=== PATIENT | female | born 1930 | race Caucasian/White ===

== ENCOUNTER 2017-09-12 08:54 | Outpatient (CLI) | payer MEDICARE ==
--- NOTE | 2017-09-12 10:13 | XRAY Report ---
TWO VIEW CHEST: 09/12/2017. COMPARISON: No comparison. INDICATION: Cough and wheeze. TECHNIQUE: Frontal and lateral chest views. FINDINGS: There is no focal consolidation. No pneumothorax or pleural effusion. The mediastinum appears unremarkable. There is eventration of the right diaphragm. IMPRESSION: NO EVIDENCE OF ACUTE THORACIC PROCESS. TD: 09/12/2017 10:12 [facility]
--- NOTE | 2017-09-12 10:14 | XRAY Report ---
LEFT SHOULDER: 09/12/2017 COMPARISON: No comparison. INDICATION: Left shoulder pain. TECHNIQUE: Three views. FINDINGS: Normal alignment. No evidence of acute fracture. There are mild degenerative changes of the acromioclavicular joint. IMPRESSION: MILD AC JOINT ARTHROSIS. TD: 09/12/2017 10:13 [facility]
== END 2017-09-12 08:55 | disposition home or self-care (01) ==
LOC: DI.S 08:54
PROVIDERS: ATTEND Nurse Practitioner Family
DX: J06.9 Acute upper respiratory infection, unspecified (principal); R05 Cough; R06.2 Wheezing; M25.512 Pain in left shoulder
CPT/HCPCS: 71046

== ENCOUNTER 2017-10-10 13:46 | Outpatient (CLI) | payer MEDICARE, OTHER ==
--- NOTE | 2017-10-10 16:35 | MRI Report ---
EXAM: LEFT SHOULDER MRI WITHOUT CONTRAST EXAM DATE: 10/10/2017 02:00 PM. CLINICAL HISTORY: Pain in left shoulder, rotator cuff syndrome. COMPARISON: Plain x-ray of the shoulder from 09/12/2017. TECHNIQUE: Multiplanar, multisequence T1-weighted and fluid-sensitive sequences of the shoulder witho ut contrast. Other: None. FINDINGS: Acromioclavicular Region: The acromion is type II. Acromioclavicular joint is moderately osteoarthrit ic. The coracoacromial and coracoclavicular ligaments are intact. Trace amount of bursal fluid. Glenohumeral Region: No subluxation. No effusion or loose bodies. There is some global overall thinni ng of the articular surface of the glenoid. The glenohumeral ligaments and joint capsule are unremark able. Bone Marrow: No fracture, marrow edema or bone lesions. Labrum: Very prominent sublabral hole. No convincing evidence for a tear. Series 401 image 20. Mild h ypoplastic change of the anterior bony glenoid. Musculature/Rotator Cuff: Undersurface partial-thickness tear at the distal supraspinatus involves ab out 50% of the tendon thickness. Series 701 image 5, series 501 image 8. Some thickening of the subsc apularis and infraspinatus tendons and muscles also noted. Teres minor attachment is normal. No proxi mal muscle bundle edema or fatty atrophy. Biceps Tendon: Long head of biceps tendon is swollen and shows some increased T2 signal within it. No vertical split or focal full-thickness tears. Other: The subcutaneous tissues are unremarkable. IMPRESSION: 1. Type II unipartite undersurface osseous acromion shape. AC joint is moderately osteoarthritic. Tra ce amount of bursal fluid is present. Some global thinning of the articular surface of the glenoid is present. Prominent sublabral hole, mild hypoplastic change of the anterior bony glenoid, no convinci ng evidence for a labral tear. 2. Partial-thickness undersurface distal supraspinatus tear involves about 50% of the tendon thicknes s. Tendinitis seen in the remaining supraspinatus and infraspinatus tendons. Tendinopathy in the subs capularis. Teres minor is normal. 3. Long head of biceps tendon shows moderately severe tendinitis. [facility] MUSCULOSKELET[facility]IOLOG[facility] SECTION Referring Provider Line: [phone] SITE ID: [id number]
== END 2017-10-10 13:47 | disposition home or self-care (01) ==
LOC: DI 13:46
PROVIDERS: ATTEND Internal Medicine
DX: M19.012 Primary osteoarthritis, left shoulder (principal); M75.112 Incomplete rotator cuff tear or rupture of left shoulder, not specified as traumatic; M75.92 Shoulder lesion, unspecified, left shoulder; M75.22 Bicipital tendinitis, left shoulder

== ENCOUNTER 2018-04-25 13:04 | Outpatient (CLI) | payer MEDICARE, OTHER ==
--- NOTE | 2018-04-25 15:40 | Ultrasound Report ---
Reason: CERVICAL LYMPHADENOPATHY Procedure Date: 04/25/2018 Accession Number: [id number] / [id number] Procedure: US - Head or Neck Soft Tissue CPT Code: FULL RESULT: EXAM: THYROID ULTRASOUND. EXAM DATE: 04/25/2018 02:35 PM. CLINICAL HISTORY: Possible cervical lymphadenopathy. PCP palpated lump right posterior neck. COMPARISON: None. TECHNIQUE: Real time sonographic imaging of the palpable finding right neck as directed by the patient. Imaging was performed by both the technologist and the radiologist. Multiple sales representative church furniture static images were saved for review. FINDINGS: No adenopathy appreciated. Per patient direction, palpable finding is in the right posterior neck in the expected position of the spinal accessory chain. A small superficial palpable finding is reproduced at physical exam and corresponds to a nonspecific 4 mm ovoid finding likely indicating a lymph node. Spinous processes of the cervical vertebrae are also prominent and easily palpable in this location. IMPRESSION: No specific finding of concern at ultrasound. Small superficial mobile palpable finding reproduced on physical exam most likely a small lymph node. Easily palpable transverse processes of the cervical spine also present in this location. If these ultrasound findings are discordant with clinical suspicion and/or PCP physical exam, more definitive imaging could be performed with CT. [facility]
== END 2018-04-25 13:05 | disposition home or self-care (01) ==
LOC: DI 13:04
PROVIDERS: ATTEND Internal Medicine
DX: R59.0 Localized enlarged lymph nodes (principal)
CPT/HCPCS: 76536

== ENCOUNTER 2018-12-12 09:38 | Observation (INO) | payer MEDICARE, OTHER ==
--- NOTE | 2018-12-12 09:53 | ED Physician Documentation ---
History of Present Illness - Stated complaint Stated Complaint: PASSED OUT, V/D - Chief complaint Chief Complaint: Neuro - History obtained from History obtained from: Patient - History of Present Illness Timing: Prior to arrival - Additonal information Additional information: Patient is an 88-year-old female with history of Sjogren's, GERD, urinary self-catheterization (chronic antibiotics), anemia presenting with witnessed syncopal episode just prior to arrival. Patient reports that she got up and was walking towards the bathroom and had witnessed syncopal episode during which she did not fall, strike her head, or injure herself. Patient believes she was unconscious for only a few seconds. Patient has chronic headache pain that is unchanged from baseline. Patient denies new headache, vision changes, or other prodromal symptoms. Following the syncopal episode, patient had episode of vomiting and diarrhea. Patient describes vomit as possibly darker in color, but denies known bloodiness, as well as any hemoptysis or hematochezia. Patient denies any current nausea, vomiting, diarrhea, abdominal pain, chest pain, difficulty breathing, cough, fever, or urinary changes. No anticoagulation. No other improving or worsening factors noted. Review of Systems Constitutional: denies: Fever Eyes: denies: Loss of vision Cardiac: denies: Chest pain / pressure Respiratory: denies: Dyspnea, Cough GI: reports: Nausea, Vomiting, Diarrhea. denies: Abdominal Pain : denies: Dysuria Neurologic: reports: Syncope, Headache, LOC. denies: Head injury PD PAST MEDICAL HISTORY - Past Medical History Neuro: Headaches, Migraines GI: GERD Other Past Medical History: Sjogrens - Past Surgical History Past Surgical History: Yes General: Other - Allergies Allergies/Adverse Reactions: Allergies Allergy/AdvReac Type Severity Reaction Status Date / Time Penicillins Allergy Rash Verified 12/12/18 09:51 PD ED PE NORMAL - Vitals Vital signs reviewed: Yes - General General: Alert and oriented X 3, No acute distress, Well developed/nourished - HEENT HEENT: Atraumatic, PERRL, EOMI, Moist mucous membranes, Pharynx benign - Neck Neck: Supple, no meningeal sign - Cardiac Cardiac: RRR, No murmur - Respiratory Respiratory: No respiratory distress, Clear bilaterally - Abdomen Abdomen: Soft, Non tender, Non distended - Rectal Rectal: Other (rectal prolapse (chronic), hemmocult positive) - Derm Derm: Normal color, Warm and dry, No rash - Extremities Extremities: No deformity, No tenderness to palpate, No edema - Neuro Neuro: Alert and oriented X 3, No motor deficit, No sensory deficit - Psych Psych: Normal mood, Normal affect Results - Vitals Vitals: Vital Signs - 24 hr 12/12/18 09:48 Temperature 36.6 C Heart Rate 91 Respiratory 16 Rate Blood Pressure 143/71 H O2 Saturation 100 Oxygen O2 Source Room air - EKG (time done) 0943 Rate: Rate (enter#) (91) Rhythm: NSR Intervals: Prolonged QT, LBBB Compare to prior EKG: Unchanged from prior EKG - Labs Labs: Laboratory Tests 12/12/18 12/12/18 12/12/18 09:30 09:44 10:34 WBC RBC Hgb Hct MCV MCH MCHC RDW Plt Count MPV Neut # (Auto) Lymph # (Auto) [place] # (Auto) Eos # (Auto) Baso # (Auto) Absolute Nucleated RBC Nucleated RBC % Manual Slide Review Platelet Estimate Platelet Morphology RBC Morph Micro Appear PT INR APTT Sodium Potassium Chloride Carbon Dioxide Anion Gap BUN Creatinine Estimated GFR (MDRD) Glucose POC Whole Bld Glucose 96 Calcium Total Bilirubin AST ALT Alkaline Phosphatase Troponin I High Sens Total Protein Albumin Globulin Albumin/Globulin Ratio Lipase TSH Blood Type O POSITIVE Blood Type Recheck O POSITIVE Antibody Screen NEGATIVE Crossmatch IS Only See Detail 12/12/18 12/12/18 12/12/18 Unknown Unknown Unknown WBC 10.1 RBC 2.76 L Hgb 5.8 L* Hct 20.9 L MCV 75.7 L MCH 21.0 L MCHC 27.8 L RDW 19.0 H Plt Count 308 MPV 9.0 Neut # (Auto) 7.6 H Lymph # (Auto) 1.9 [place] # (Auto) 0.5 Eos # (Auto) 0.0 Baso # (Auto) 0.0 Absolute Nucleated RBC 0.00 Nucleated RBC % 0.0 Manual Slide Review Indicated Platelet Estimate NORMAL (130-450,000) Platelet Morphology NORMAL APPEARANCE RBC Morph Micro Appear 2+ ANISOCYTOSIS PT INR APTT Sodium 138 Potassium 4.4 Chloride 102 Carbon Dioxide 22 Anion Gap 14.0 H BUN 35 H Creatinine 0.7 Estimated GFR (MDRD) 79 L Glucose 128 H POC Whole Bld Glucose Calcium 9.1 Total Bilirubin 0.6 AST 17 ALT 16 Alkaline Phosphatase 89 Troponin I High Sens Total Protein 6.9 Albumin 4.0 Globulin 2.9 Albumin/Globulin Ratio 1.4 Lipase 37 TSH 8.16 H Blood Type Blood Type Recheck Antibody Screen Crossmatch IS Only 12/12/18 12/12/18 Unknown Unknown WBC RBC Hgb Hct MCV MCH MCHC RDW Plt Count MPV Neut # (Auto) Lymph # (Auto) [place] # (Auto) Eos # (Auto) Baso # (Auto) Absolute Nucleated RBC Nucleated RBC % Manual Slide Review Platelet Estimate Platelet Morphology RBC Morph Micro Appear PT 13.0 H INR 1.2 APTT 26.8 Sodium Potassium Chloride Carbon Dioxide Anion Gap BUN Creatinine Estimated GFR (MDRD) Glucose POC Whole Bld Glucose Calcium Total Bilirubin AST ALT Alkaline Phosphatase Troponin I High Sens 5.1 Total Protein Albumin Globulin Albumin/Globulin Ratio Lipase TSH Blood Type Blood Type Recheck Antibody Screen Crossmatch IS Only PD MEDICAL DECISION MAKING - ED course Complexity details: reviewed results, re-evaluated patient, considered differential, d/w patient, d/w family, d/w risk consultant ED course: Patient presenting with syncopal episode that lasted several seconds and was followed by vomiting and diarrhea. Patient has multiple chronic medical problems including known anemia, however, has never required blood transfusion. Physical exam is relatively unremarkable upon arrival and patient comfortable without significant complaints. EKG obtained which did not find evidence of ischemia. Screening lab work returned concerning for significant anemia with hemoglobin of 5.9. Given that finding, performed rectal exam which revealed Hemoccult positive stool. At this time, discussed blood transfusion with patient and she is agreeable. Also discussed admission for further work-up and treatment and set up for likely outpatient endoscopy and colonoscopy. Patient is amenable to this plan as well. Hospitalist contacted and will arrange for such. Departure - Departure Disposition: ED Place in Observation Clinical Impression: Syncope Qualifiers: Syncope type: unspecified Qualified Code(s): R55 - Syncope and collapse Anemia Qualifiers: Anemia type: unspecified type Qualified Code(s): D64.9 - Anemia, unspecified
[2018-12-12] MEDS ORDERED: SODIUM CHLORIDE 0.9% 1,000 ML IV ONE (10:02)
[2018-12-12 10:14] LABS: BASOPHILS % (AUTO) 0.3 %; EOSINOPHILS % (AUTO) 0.1 %; LYMPHOCYTES # (AUTO) 1.9 10^3/uL (1.5-3.5); LYMPHOCYTES % (AUTO) 18.4 %; MEAN CORPUSCULAR HGB CONC 27.8 g/dL (32.0-36.0); MEAN CORPUSCULAR VOLUME 75.7 fL (81.0-99.0); MONOCYTES # (AUTO) 0.5 10^3/uL (0.0-1.0); MONOCYTES % (AUTO) 5.2 %; NEUTROPHILS # (AUTO) 7.6 10^3/uL (1.5-6.6); NEUTROPHILS % (AUTO) 75.6 %; PLT - PLATELET COUNT 308 10^3/uL (130-450); RED BLOOD COUNT 2.76 10^6/uL (4.20-5.40); WHITE BLOOD COUNT 10.1 x10^3/uL (4.8-10.8)
[2018-12-12 10:21] LABS: HGB - HEMOGLOBIN 5.8 g/dL (12.0-16.0)
[2018-12-12 10:26] LABS: ALBUMIN/GLOBULIN RATIO 1.4 (1.0-2.2); BILIRUBIN,TOTAL 0.6 mg/dL (0.2-1.0); CALCIUM 9.1 mg/dL (8.5-10.3); CREATININE 0.7 mg/dL (0.4-1.0); TOTAL PROTEIN 6.9 g/dL (6.7-8.2)
--- NOTE | 2018-12-12 10:31 | CT Report ---
Reason: syncope with LOC Procedure Date: 12/12/2018 Accession Number: [id number] / [id number] Procedure: CT - HEAD WO CPT Code: FULL RESULT: EXAM: CT HEAD EXAM DATE: 12/12/2018 10:18 AM. CLINICAL HISTORY: Syncope with LOC. COMPARISON: None. TECHNIQUE: Multiaxial CT images were obtained from the foramen magnum to the vertex. Reformats: Sagittal and coronal. IV contrast: None. In accordance with CT protocol optimization, one or more of the following dose reduction techniques were utilized for this exam: automated exposure control, adjustment of mA and/or KV based on patient size, or use of iterative reconstructive technique. FINDINGS: Parenchyma: No intraparenchymal hemorrhage. No evidence of mass, midline shift, or CT findings of infarction. Hung-white differentiation is distinct. Extraaxial Spaces: Normal for age. No subdural or epidural collections identified. Ventricles: Normal in size and position. Sinuses and Orbits: Imaged paranasal sinuses, orbits, and mastoids show no significant abnormality. Bones: No evidence of fracture or calvarial defect. Other: None. IMPRESSION: 1. No acute intracranial process is present. [facility]
[2018-12-12 10:37] LABS: INR 1.2 (0.8-1.2)
[2018-12-12 10:39] LABS: PLATELET ESTIMATE, MANUAL NORMAL (130-450,000) (NORMAL); PLATELET MORPHOLOGY NORMAL APPEARANCE (NORMAL)
[2018-12-12 10:45] LABS: PARTIAL THROMBOPLASTIN TIME 26.8 secs (24.9-33.3)
[2018-12-12 12:08] LABS: BILIRUBIN,URINE NEGATIVE (NEGATIVE); GLUCOSE, URINE (UA) NEGATIVE (NEGATIVE); KETONES,URINE (UA) NEGATIVE (NEGATIVE); LEUKOCYTE ESTERASE, URINE NEGATIVE (NEGATIVE); NITRITE,URINE POSITIVE (NEGATIVE); OCCULT BLOOD,URINE NEGATIVE (NEGATIVE); PH,URINE 5.5 PH (5.0-7.5); PROTEIN,URINE NEGATIVE (NEGATIVE); UROBILINOGEN,URINE 0.2 (NORMAL) E.U./dL (NORMAL)
[2018-12-12] MEDS ORDERED: oxyCODONE 5 MG TABLET PO PRN (12:08)
[2018-12-12] MEDS ORDERED: PROCHLORPERAZINE 10 MG/2 ML VIAL IVP PRN (12:08)
[2018-12-12] MEDS ORDERED: ONDANSETRON 4 MG/2 ML VIAL IVP PRN (12:08)
[2018-12-12] MEDS ORDERED: ACETAMINOPHEN 325 MG TABLET PO PRN (12:08)
[2018-12-12] MEDS ORDERED: ONDANSETRON ODT 4 MG TABLET TL PRN (12:08)
[2018-12-12] MEDS ORDERED: SODIUM CHLORIDE FLUSH 0.9% 10 ML SYRINGE IVP PRN (12:08)
[2018-12-12 12:09] LABS: CLARITY,URINE CLEAR (CLEAR)
[2018-12-12 12:20] LABS: BACTERIA,URINE Moderate /HPF (None Seen); RBC,URINE None Seen /HPF (0-5); SQUAMOUS EPITHELIAL CELL,UR FEW Squamous (<= Few)
[2018-12-12] MEDS: PANTOPRAZOLE 40 MG TABLET PO SCH (14:53)
[2018-12-12] MEDS: BUTALB/ACETAM/CAFF 50/325/40MG TABLET PO PRN (14:53)
--- NOTE | 2018-12-12 17:22 | HISTORY & PHYSICAL EXAMINATION ---
DATE OF SERVICE: 12/12/2018 Physician: Elizabeth Beauchamp MD PRIMARY CARE PROVIDER: Marycruz Worthington MD ADMITTING PROVIDER: Elizabeth Beauchamp MD CHIEF COMPLAINT: Syncope. RECORDS REVIEWED: [facility] HISTORY OF PRESENT ILLNESS: This is an absolutely sushant 88-year-old female who still lives alone. Needs a little bit of help from her kids with regard to heavy lifting, deep cleaning, but she still wanders into her yard, weeds a little bit, comes back inside and does that several times a day. Still able to dress herself, feed herself. She has a terrible problem with prolapsed bladder and rectum and urinary retention. She has had an intrastimulator placed and it failed and it was explanted 2016. Then she had a sling revision with urethrolysis 05/2017. She thinks that for the most part that is what she suffers from. Everything else is "small potatoes" but she does mention that she has had anemia for several years now. She associates that with her Sjogren's disease. She always has a little bit of dysphagia, dry mouth. She did have an EGD and colonoscopy in 2017 through [facility]. Not done at the same time, but both have been done. Those results are not available, but she remembers being told that "everything was normal." She has had no recent change in bowel or bladder habits. She has urinary retention and gets frequent UTIs. She is on chronic maintenance Bactrim therapy because of it. She does have a history of ESBL UTI. While she is always tired, always has some element of shortness of breath with exertion, she seems to be much worse than usual over the last several weeks. She is absolutely exhausted on top of her usual fatigue, but she denies angina with this, edema, orthopnea, chest pain, palpitations. There has been no abdominal pain. No change in her bowel habits. No blood in her urine. No blood in her stool. This morning, she got up formula maker hours to go to the bathroom. She says she just finds it easier to urinate at night than she does during the day for some reason, and got up to get herself a glass of orange juice in the kitchen. While she was standing there, she passed out. She vaguely recalls not feeling well before it happened, but really cannot give me any more history than that. She was brought to the emergency room and had a temperature that was 36.6. A pulse of 91 and a blood pressure 143/71. She was oxygenating well on room air at 97-100%. She is a very, very slender elderly woman whose weight is 47.5 kg and is 5 feet 8 inches tall. Pertinent findings were TSH of 8.16, but her hemoglobin is 5.8. Back in 08/2015, her hemoglobin was 8.9. MCV then was 78. MCV today is 75. She said she really does not remember being told she had iron deficiency anemia. In looking at our EMR, there are no iron studies done, but she thinks it may have been checked in her doctor's office. As such, the patient is now being admitted to observation for syncope, most likely orthostatic syncope in the face of severe microcytic anemia. PAST MEDICAL HISTORY 1. G3, P3. 2. 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 Status post intrastimulator of bladder placed and then explanted 05/2016 because it failed. TVTO sling revision and urethrolysis done 05/2017. 3. HPL. 4. Migraines of which she has one right now. 5. Osteoarthritis. 6. Cholelithiasis with cholecystectomy in 1967. 7. Appendectomy in 1993. 8. Cataract extractions. 9. Hernia repair in 2003. ALLERGIES: PENICILLIN. MEDICATIONS 1. Calcium carbonate daily. 2. Vitamin B12 sublingual 1000 mcg daily. 3. Flaxseed oil 1000 mg daily. 4. Prozac 20 mg daily. 5. Lactobacillus capsule daily. 6. Prevacid 15 mg p.o. b.i.d. 7. Lovastatin 40 mg p.o. q.p.m. 8. Theragran 1 tablet daily. 9. Zantac 150 mg p.o. b.i.d. and Bactrim double strength 1 p.o. daily. SOCIAL HISTORY: She was born in [place]. Fell in love with an Army man who was in the Army band and ended up living in [place] once they got and he finished his tour of duty. She raised 3 children in [place]. She moved to [facility] probably about 14-15 years ago when one of her daughters settled here and she settled to be close to her daughter. Her in the year 1999. 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 She never really smoked. She rarely drinks alcohol. She has no history of recreational substance abuse. FAMILY HISTORY: Dad of coronary artery disease in his 70s, probably around 78. Mom at age 77. She had complications of high blood pressure. She had 1 brother and 2 sisters. Brother of prostate cancer. One sister of lung cancer and was a smoker. Another sister of uterine cancer. Three daughters One is plagued by obesity, hypertension, hyperlipidemia. The other 2 sisters have hyperlipidemia and blood pressure between the two of them. REVIEW OF SYSTEMS GENERAL: Constitutional complaint is of constant chronic fatigue. Always present in her life, worse over the last few months. No fevers, no chills. She does not think she has lost weight, but she is so tiny. ENT: She has dry eyes, dry mouth, dentures. Slight head tremor. Slight deafness. PULMONARY: Denies coughing, wheezing, chest congestion. CARDIOVASCULAR: Denies angina, edema, orthopnea. GASTROINTESTINAL: Reflux disease. No change in bowel habits. No blood in her stool. Again, she had an EGD in 10/2016 for iron deficiency anemia, but she cannot remember what it showed. She does not think she had ulcers. She is not sure. GENITOURINARY: Intermittent vaginal discharge, intermittent dysuria, urgency, frequency. No flank pain. Easy urinary retention. JOINTS: Diffuse generalized pain in her hands, toes, neck. No tenosynovitis. DERMATOLOGIC: No new lesions, pruritus, rashes. PSYCHIATRIC: Denies severe anxiety, has mild depression. No hallucinations or delusions. OUTSIDE DEALER SALES REPRESENTATIVE: Dysphagia, migraine headache, mild decreased hearing. PHYSICAL EXAMINATION VITAL SIGNS: Temperature is 36.7, pulse is 82, blood pressure 129/51, respirations 18. She is 96% saturated on 2 liters. GENERAL: She is a tiny, elderly female with diffuse muscle mass loss and cachexia indicated by severe bilateral temporal wasting and gauntness of her overall body frame with her skeletal frame quite easily seen. HEAD AND NECK: Unremarkable. She does have quite a bit of dry mouth. Dentures in place. Slight head tremor. Neck is supple with adenopathy that is mild, no goiter or bruits. LUNGS: Clear to auscultation and percussion without any increased respiratory effort. HEART: Regular rate and rhythm with a systolic ejection murmur. She does get tachycardic when I try and sit her up and try to listen to her lung exam. ABDOMEN: Soft, scaphoid, nontender. No organomegaly. EXTREMITIES: Cool feet, warm hands. No clubbing or cyanosis. Osteoarthritic deformities in the distal interphalangeal joints of the fingers and toes. NEUROLOGIC: She is alert and oriented to person, place, time. Head tremor and lip tremor present. No other gross deficit noted or abnormality noted other than generalized deconditioning in this is sushant elderly woman. No focal deficits. No hand tremors. She is oriented to person, place and time and can follow two-step instructions quite easily. LABORATORY DATA: Sodium is 138, potassium 4.4, BUN 35, creatinine 0.7, glucose 128. Troponin high sensitivity 5.1. TSH 8.16. INR is 1.2. White cell count is 10.1, hemoglobin 5.8, hematocrit 20.9, platelets 308. Urinalysis positive nitrites, moderate bacteria, few squamous cells. No culture will be done. IMAGING: Head CT was done because of her syncope. No acute intracranial process identified. ASSESSMENT AND PLAN 1. Orthostatic syncope presumed in a patient with a hemoglobin of 5. She has actually had syncope in 2015. She was seen by her primary care provider in the office. I do not know what that workup was. In our hospital, she does have an echocardiogram from that episode of syncope in 2015. Ventricle was normal in size, no thrombus. Ejection fraction 60-65%. Mild grade 1 diastolic dysfunction. Left atrial volume index was normal. No aortic stenosis noted. I do hear mild cardiac murmur, but again, I do not think syncope is from aortic stenosis, arrhythmia or seizure. I think she is anemic. Plan: Observation admission. Attestation: The patient will be discharged within 96 hours. Telemetry Orthostatic vital signs 2. Microcytic anemia, presumed iron deficiency anemia. No unexpected weight changes, so I do not suspect neoplasm, but this woman does take aspirin on a daily basis for her Migraine. Plan: Transfuse 2 units. Recheck orthostatics, hemoglobin and hematocrit. If she is still symptomatic, may need another 2 units after that. Get records from [facility] or [facility]. I have already called [facility] gastroenterology office, and the back office will be faxing me the colonoscopy and EGD with path report. 3. History of urinary retention and chronic urinary tract infections. Continue Bactrim. 4. Deep venous thrombosis prophylaxis will be BOB sánchez. 5. DO NOT RESUSCITATE STATUS. TD: 12/12/2018 16:15 [facility] [place]
[2018-12-12] MEDS: SODIUM CHLORIDE FLUSH 0.9% 10 ML SYRINGE IVP SCH ×2 (19:04→23:57)
[2018-12-12 20:57] LABS: HGB - HEMOGLOBIN 7.9 g/dL (12.0-16.0)
[2018-12-12] MEDS ORDERED: ATORVASTATIN 40 MG TABLET PO SCH (21:00)
[2018-12-12] MEDS ORDERED: SULFAMETH/TRIMETH DS 800/160 MG TABLET PO SCH (21:00)
[2018-12-12] MEDS: FAMOTIDINE 20 MG TABLET PO SCH (21:20)
[2018-12-13] MEDS: PANTOPRAZOLE 40 MG TABLET PO SCH (06:00)
[2018-12-13 07:07] LABS: HGB - HEMOGLOBIN 8.5 g/dL (12.0-16.0); MEAN CORPUSCULAR HEMOGLOBIN 23.8 pg (27.0-31.0); MEAN CORPUSCULAR HGB CONC 30.4 g/dL (32.0-36.0); MEAN CORPUSCULAR VOLUME 78.4 fL (81.0-99.0); MEAN PLATELET VOLUME 9.1 fL (7.9-10.8); RED BLOOD COUNT 3.57 10^6/uL (4.20-5.40); RED CELL DISTRIBUTION WIDTH 18.5 % (12.0-15.0); WHITE BLOOD COUNT 7.3 x10^3/uL (4.8-10.8)
[2018-12-13 07:20] LABS: CALCIUM 8.6 mg/dL (8.5-10.3); CREATININE 0.7 mg/dL (0.4-1.0); MAGNESIUM 1.9 mg/dL (1.7-2.8); PHOSPHORUS 3.9 mg/dL (2.5-4.6)
[2018-12-13 08:13] LABS: ABSOLUTE RETICS # AUTO 0.052 10^6/uL (0.020-0.110); RED BLOOD COUNT 3.52 10^6/uL (4.20-5.40)
[2018-12-13 08:40] LABS: FERRITIN 4.2 ng/mL (11.0-306.8)
[2018-12-13] MEDS: BUTALB/ACETAM/CAFF 50/325/40MG TABLET PO PRN (08:59)
[2018-12-13] MEDS ORDERED: CALCIUM CARB (OYSTER SHELL) 500 MG TABLET PO SCH (09:00)
[2018-12-13] MEDS ORDERED: POLYETHYLENE GLYCOL 3350 17 GM PACKET PO SCH (09:00)
[2018-12-13] MEDS ORDERED: FLUoxetine 10 MG CAPSULE PO SCH (09:00)
[2018-12-13] MEDS: FAMOTIDINE 20 MG TABLET PO SCH (09:03)
[2018-12-13] MEDS: SODIUM CHLORIDE FLUSH 0.9% 10 ML SYRINGE IVP SCH (09:06)
[2018-12-13 09:12] LABS: % IRON SATURATION 3 % (20-50); IRON 14 ug/dL (28-170); TOTAL IRON BINDING CAPACITY 452 ug/dL (250-450); TRANSFERRIN 323 mg/dL (192-382)
--- NOTE | 2018-12-13 09:26 | Discharge Plan ---
Discharge Plan Problem Reviewed?: Yes Disposition: Home, Self Care Condition: Fair Prescriptions: Butalb/Acetaminophen/Caffeine [Fioricet 50-300-40 mg Capsule] 1 each PO BID PRN #30 capsule PRN Reason: Migraine Ferrous Gluconate 240 mg PO DAILY #30 tablet Diet: Regular Activity Restrictions: Activity as Tolerated Shower Restrictions: No Driving Restrictions: No Health Concerns: You presented to the hospital with 2 problems. One was passing out because you had gotten up to urinate, and in standing up to do that and get a glass of water , you suddenly fainted. The next problem is chronic urinary retention resulting in chronic urinary tract infections. And you take Bactrim on a daily basis to suppress recurrence of an infection. Plan of Treatment: In the emergency room you had a CAT scan of your head. You did not have a stroke or any damage to your head because you fell. We found you to be severely anemic and you were transfused 2 units of packed red cells. Your hemoglobin, which is one of the measurements for how much blood you have, was 5.8 grams. Normal is at least 13. You are severely anemic and now your hemoglobin is 8.5 after receiving 2 units of blood. As for your passing out, you fainted because of the anemia. You have a history of anemia and have already had an upper and lower endoscopy with [facility] for that in 2017. You do not have any arrhythmias, stroke, or valvular heart disease. All those things can cause fainting as well. Your urinalysis is growing out E. coli again. This is a bacteria that is treated with the Bactrim you are on. Care Goals: 1. Follow-up with your primary care provider. You have had upper and lower endoscopy in the past. This was was [facility] in 2017. You will need to be seen again to have another upper endoscopy. Do that first. If the upper endoscopy is negative then you will need a lower endoscopy. We think that you have an ulcer in your stomach from the Excedrin migraine medicine you take on a daily basis. You are also interested in being seen local ly and you can be referred to general surgery here in [place]. Dr. Seals, Dr. Barrientos, and Dr. Garza all do upper endoscopies here at the hospital. 2. You have iron deficiency anemia. But please have your primary care provider follow-up on the lab work we did here on the hospital to make sure that your B12 levels are normal. Those are pending at the time of discharge. 3. I have started you on ferrous gluconate. You hate taking iron tablets and they make you sick. But hopefully ferrous gluconate is better tolerated since its with a bit of sugar in it. 4. You continue to have E. coli in your urine. Continue your Bactrim. But have your primary care provider make sure that the urinalysis is being treated by the Bactrim. 5. Please do not take any substances that have inflammatory pain medicine in them. That means you cannot take any aspirin, Aleve, Naprosyn, Motrin, ibuprofen, meloxicam, etc. The only pain medicine you can take is Tylenol. I have called in Fioricet for headaches and pain that you can take up to twice a day. Have your primary care provider gave you a refill prescription for that No Smoking: If you smoke, Please STOP! Call for help. Follow-up with: Grady Jhaveri MD [Primary Care Provider] -
[2018-12-13 10:17] VITALS: BP 117/53
--- NOTE | 2018-12-13 16:08 | DISCHARGE SUMMARY ---
"Discharge Summary Admit Date: 12/12/18 Discharge Date: 12/13/18 Discharging Provider: Elizabeth Beauchamp MD Primary Care Provider: Marycruz Worthington MD Code Status: Do Not Attempt Resuscitation Condition at Discharge: Fair Discharge Disposition: 01 Home, Self Care - DIAGNOSES Discharge Diagnoses with Status of Each Condition: 1. Orthostatic syncope 2. microcytic anemia, severe 3. History of urinary retention 4. Chronic urinary tract infections 5. E. coli UTI 6. Migraine headaches - HPI History of Present Illness: She is an absolutely sushant 88-year-old who still lives alone. Still needs a little help from her kids but manages to live independently with help from her family. Her main problem is urinary retention and is currently on suppressive Bactrim for chronic UTIs. She did have a history of anemia in the past associated with her Sjogren's disease. She underwent an EGD and colonoscopy in 2016 through [facility]. Those results were not able to be reviewed at this time. I did call [facility] and spoke with her back office nurse. She was to fax me the copies of those reports on December 12 but never did. The patient presents with syncope. She is always tired, always a little bit short of breath. But excessively so over the last week. No change in bowel habits no change in the color of her stool. She got up to go to the bathroom. And was standing to get a glass of water afterwards when she suddenly passed out. No chest pain, she does not feel like she got warning. She was brought to the emergency room via ambulance and had normal vital signs. She was a very slender frail elderly woman who is 47.5 kg and 5 feet 8 inches tall. TSH was mildly elevated 8.16 but her hemoglobin was 5.8. In August 2015 hemoglobin was 8.9. MCV then was 78 and MCV today is 75. She hates taking iron supplements because they make her nauseated. In review of her medication list, she does take Excedrin [id number] on a regular basis for her migraine headaches. - CONSULTS | PROCEDURES Procedures: Transfusion of 2 units of PRBC - HOSPITAL COURSE Hospital Course: Hospital course: She was placed in observation and monitored for telemetry and vital signs. There were no arrhythmias noted on telemetry. She received 2 units of blood. Supine blood pressure was 116/56, sitting blood pressure 117/53, standing blood pressure 109/85. Pulse remained 81-92 with this. So she is still mildly orthostatic. She had no symptoms with this. She did have a positive nitrites with moderate bacteria on her urinalysis. It did grow out E. coli. Sensitivities are pending at the time of discharge. This patient is on chronic Bactrim suppression. I would anticipate resistance. She will need to follow-up with her primary care provider about changing her medication if necessary. Because she has migraine headaches and can no longer take Excedrin, we tried her on Fioricet. It worked wonderfully. As such she will be sent home with Fioricet 50/3 125/40 mg tablet twice daily as needed. I have given her 30 capsules and if she needs refills to contact her primary care provider. We suspect that she has gastritis. There were no melanotic stools. She needs to be set up for follow-up EGD and colonoscopy again. She was given the option of going back to [facility] gastro[facility] or returning to the general surgery office here to see either Dr. Barrientos, Dr. Seals, or Dr. Garza. She thinks she would like to just be done here. TSH is mildly elevated at 8.1 while here. On physical exam she does not appear to be hypothyroid. I do not think that she needs to be treated. Laboratory Tests 12/12/18 12/12/18 12/12/18 10:00 20:53 Unknown Hgb 5.8 L* 7.9 L Reticulocyte % (Auto) Absolute Retic Iron TIBC % Saturation Transferrin Ferritin Lactate Dehydrogenase Vitamin B12 TSH 8.16 H 12/13/18 12/13/18 12/13/18 06:54 06:54 06:54 Hgb 8.5 L Reticulocyte % (Auto) 1.48 Absolute Retic 0.052 Iron 14 L TIBC 452 H % Saturation 3 L Transferrin 323 Ferritin Lactate Dehydrogenase Vitamin B12 TSH 12/13/18 12/13/18 06:54 08:11 Hgb Reticulocyte % (Auto) Absolute Retic Iron TIBC % Saturation Transferrin Ferritin 4.2 L Lactate Dehydrogenase 132 Vitamin B12 425 TSH Discharge examination showed a temperature of 37.2, pulse 79, blood pressure 120/61, respirations 20 and 98% on room air. She is a delightful, slender, frail elderly woman. Has a slight lip tremor, jaw tremor and hand tremor. Supple neck. Completely clear lung exam. A regular rate and rhythm with a systolic ejection murmur. Abdomen that is benign, soft, nontender. And extremities are warm. She is She is asked to follow-up with her primary care provider Marycruz Worthington, and have Dr. Worthington make referrals to the appropriate facilities project manager which ever office the patient wants to see. She is also received clear instructions never to take any form of nonsteroidal therapy again. To start iron tablets and use fioricet for migraines prn. - ALLERGIES Allergies/Adverse Reactions: Allergies Allergy/AdvReac Type Severity Reaction Status Date / Time Penicillins Allergy Rash Verified 12/12/18 09:51 - MEDICATIONS Home Medications: Ambulatory Orders Medication Instructions Recorded Confirmed RX: Calcium Carbonate/Vitamin D3 1 each PO DAILY 12/12/18 12/12/18 [Calcium 600-Vit D3 400 Tablet] RX: Cyanocobalamin (Vitamin B-12) 1,000 mcg SL DAILY 12/12/18 12/12/18 [Vitamin B-12 (1000 mcg sublingual)] RX: Flaxseed Oil 1,000 mg PO DAILY 12/12/18 12/12/18 RX: Fluoxetine HCl [Prozac] 20 mg PO DAILY 12/12/18 12/12/18 RX: Lactobacillus Rhamnosus GG 1 cap PO DAILY 12/12/18 12/12/18 [Culturelle] RX: Lansoprazole [Prevacid] 15 mg PO BID 12/12/18 12/12/18 RX: Lovastatin 40 mg PO QPM 12/12/18 12/12/18 RX: Multivitamin [Theragran] 1 each PO DAILY 12/12/18 12/12/18 RX: Sulfamethox/Trimeth 800/160 1 each PO QPM 12/12/18 12/12/18 [Bactrim Ds] RX: raNITIdine [Zantac] 150 mg PO BID 12/12/18 12/12/18 Butalb/Acetaminophen/Caffeine 1 each PO BID PRN #30 capsule 12/13/18 [Fioricet 50-300-40 mg Capsule] RX: Ferrous Gluconate 240 mg PO DAILY #30 tablet 12/13/18 - LABS Result Diagrams: 12/13/18 06:54 12/13/18 06:54"
== END 2018-12-13 11:25 | disposition home or self-care (01) ==
LOC: ED 09:38 → MS3 12:08
PROVIDERS: ADMIT Specialist; ATTEND Specialist
DX: D50.9 Iron deficiency anemia, unspecified (principal); R55 Syncope and collapse; N39.0 Urinary tract infection, site not specified; B96.20 Unspecified Escherichia coli [E. coli] as the cause of diseases classified elsewhere; G43.909 Migraine, unspecified, not intractable, without status migrainosus; R33.9 Retention of urine, unspecified; M35.00 Sjogren syndrome, unspecified; K21.0 Gastro-esophageal reflux disease with esophagitis; K22.70 Barrett's esophagus without dysplasia; K44.9 Diaphragmatic hernia without obstruction or gangrene; R13.10 Dysphagia, unspecified; R94.6 Abnormal results of thyroid function studies; R53.82 Chronic fatigue, unspecified; F32.9 Major depressive disorder, single episode, unspecified; R25.1 Tremor, unspecified; M19.90 Unspecified osteoarthritis, unspecified site; H91.90 Unspecified hearing loss, unspecified ear; Z66 Do not resuscitate; Z79.82 Long term (current) use of aspirin; Z79.1 Long term (current) use of non-steroidal anti-inflammatories (NSAID); Z79.2 Long term (current) use of antibiotics; Z87.440 Personal history of urinary (tract) infections; Z87.19 Personal history of other diseases of the digestive system; Z90.49 Acquired absence of other specified parts of digestive tract; Z87.448 Personal history of other diseases of urinary system
CPT/HCPCS: 36415; 36430; 51701; 70450; 80048; 81001; 82607; 82728; 83540; 83615; 83690; 83735; 84100; 84466; 84484; 85014; 85018; 85027; 85044; 85610; 85730; 86850; 86900; 86901; 86920; 87077; 87086; 87181; 93005; 96360; 99284; 99285; A9270; G0378; P9016; 80053; 81003; 84443; 85025

== ENCOUNTER 2018-12-31 11:50 | Day surgery (SDC) | payer MEDICARE, OTHER ==
[2018-12-31] MEDS ORDERED: KETAMINE 500 MG/10 ML VIAL IVP ONE (11:51)
[2018-12-31] MEDS ORDERED: PROPOFOL 200 MG/20 ML VIAL IVP ONE (11:51)
[2018-12-31] MEDS ORDERED: LACTATED RINGERS 1,000 ML IV ONE (12:37)
--- NOTE | 2018-12-31 13:09 | ANESTHESIA ---
Pre-Anesthesia VS, & Labs - Diagnosis gi bleed - Procedure EGD Vital Signs: Temp Pulse Resp BP Pulse Ox 36.2 C L 88 14 113/59 L 98 12/31/18 12:02 12/31/18 12:02 12/31/18 12:02 12/31/18 12:02 12/31/18 12:02 Height 5 ft Weight (kg) 48.3 kg Body Mass Index 20.4 - NPO >8 hours - Is Patient ?: No Home Medications and Allergies Calcium Carbonate/Vitamin D3 [Calcium 600-Vit D3 400 Tablet] 1 each PO DAILY 12/12/18 Cyanocobalamin (Vitamin B-12) [Vitamin B-12 (1000 mcg sublingual)] 1,000 mcg SL DAILY 12/12/18 Flaxseed Oil 1,000 mg PO DAILY 12/12/18 Fluoxetine HCl [Prozac] 20 mg PO DAILY 12/12/18 Lactobacillus Rhamnosus GG [Culturelle] 1 cap PO DAILY 12/12/18 Lansoprazole [Prevacid] 15 mg PO BID 12/12/18 Lovastatin 40 mg PO QPM 12/12/18 Multivitamin [Theragran] 1 each PO DAILY 12/12/18 Sulfamethox/Trimeth 800/160 [Bactrim Ds] 1 each PO QPM 12/12/18 raNITIdine [Zantac] 150 mg PO BID 12/12/18 Allergies/Adverse Reactions: Allergies Allergy/AdvReac Type Severity Reaction Status Date / Time Penicillins Allergy Rash Verified 12/30/18 14:31 Anes History & Medical History - Anesthetic History Anesthesia Complications: reports: No previous complications - Medical History Cardiovascular: reports: High cholesterol Pulmonary: reports: None Gastrointestinal: reports: GERD, GI bleed, Hiatal hernia Urinary: reports: Incontinence, Indwelling catheter Neuro: reports: Headaches, Migraines Musculoskeletal: reports: None, Other Endocrine/Autoimmune: reports: None Skin: reports: None Smoking Status: Never smoker - Surgical History General: Cholecystectomy Eyes Ears Nose Throat (EENT): Cataracts Urologic: Bladder surgery Gynecologic: Hysterectomy Exam General: Alert Dental: Dentures full Upper, Dentures full Lower Mouth Opening: Greater than 4 Fingerbreadths Mallampati classification: II Thyromental Distance: greater than 6 cm Respiratory: Lungs clear Cardiovascular: Regular rate, Normal S1, Normal S2 Plan Anesthesia Type: MAC Consent for Procedure(s) Verified and Reviewed: Yes Code Status: Attempt Resuscitation ASA classification: 2-Mild systemic disease Is this case an emergency?: No
[2018-12-31] MEDS ORDERED: LIDO GARGLE 30 ML BOTTLE ONE (13:14)
[2018-12-31] MEDS ORDERED: LIDO GARGLE 30 ML BOTTLE TOP ONE (13:21)
[2018-12-31 14:11] VITALS: BP 125/60
== END 2018-12-31 11:51 | disposition home or self-care (01) ==
LOC: SDS 11:50
PROVIDERS: ATTEND Surgery
PROC: 0DB68ZX Excision of Stomach, Via Natural or Artificial Opening Endoscopic, Diagnostic (ICD-10-PCS; 2018-12-31)
PROC: 0DB38ZX Excision of Lower Esophagus, Via Natural or Artificial Opening Endoscopic, Diagnostic (ICD-10-PCS; 2018-12-31)
PROC: 0DB98ZX Excision of Duodenum, Via Natural or Artificial Opening Endoscopic, Diagnostic (ICD-10-PCS; principal; 2018-12-31 13:15)
DX: D50.9 Iron deficiency anemia, unspecified (principal); R19.5 Other fecal abnormalities; K22.10 Ulcer of esophagus without bleeding; K25.9 Gastric ulcer, unspecified as acute or chronic, without hemorrhage or perforation; K44.9 Diaphragmatic hernia without obstruction or gangrene; T18.2XXA Foreign body in stomach, initial encounter; K21.9 Gastro-esophageal reflux disease without esophagitis; Z80.9 Family history of malignant neoplasm, unspecified
CPT/HCPCS: 43239; A9270; J7120

== ENCOUNTER 2019-01-23 08:31 | Outpatient (CLI) | payer MEDICARE, OTHER ==
--- NOTE | 2019-01-23 14:45 | Nuclear Medicine Report ---
Reason: GERD Procedure Date: 01/23/2019 Accession Number: [id number] / [id number] Procedure: NM - Gastric Empty Small Bowel CPT Code: FULL RESULT: EXAM: GASTRIC EMPTYING STUDY EXAM DATE: 01/23/2019 01:43 PM. CLINICAL HISTORY: GERD. COMPARISON: None. TECHNIQUE: A standard meal was radiolabeled with 1 mCi Tc-99m sulfur colloid according to protocol. Following the oral administration of this meal, the patient underwent multiple static images over the abdomen from the anterior and posterior projections, at approximately 0, 1, 2, and 4 hours following the ingestion of the meal. Region of interest analysis was employed, and percent emptied/percent remaining of the meal was calculated using both the geometric mean and decay corrections. FINDINGS: Calculations demonstrate: TIME (hours) Percent remaining. Normal values for percent remaining. 1 hour: 25% (30-90%) 2 hours: 10% (0-60%) 4 hours: 13% (0-10%) Per technologist notes, the patient was only able to ingest two thirds of the radiolabeled meal due to transient nausea. Images seem to indicate some stasis of the radiolabeled meal in the region of the distal esophagus throughout the course of the imaging. The gastric activity identified on the immediate images appears to clear relatively rapidly on the subsequent one hour images, where there is minimal gastric activity and conspicuous small bowel activity, some of which overlaps the gastric EVGENY. On the 4 hour image there appears to be increased small bowel activity incorporated into the gastric EVGENY compared with the prior images. IMPRESSION: 1. Bowel activity overlapping the gastric EVGENY on the 1 hour and subsequent images degrades evaluation for gastric emptying. Visually there appears to be rapid clearance of the initial gastric activity and the calculated gastric retention at the 1 hour time point suggests abnormally rapid gastric emptying. Calculated gastric retention above the normal range at the 4 hour time point may reflect overlapping bowel activity and/or retained distal esophageal uptake rather than delayed gastric emptying. 2. Retention of radiotracer in the region of the distal esophagus may reflect dysmotility, reflux, and/or hiatal hernia. RADIA
== END 2019-01-23 08:32 | disposition home or self-care (01) ==
LOC: DI 08:31
PROVIDERS: ATTEND Surgery
DX: K21.9 Gastro-esophageal reflux disease without esophagitis (principal)
CPT/HCPCS: 78265

== ENCOUNTER 2019-11-16 14:22 | Inpatient (IN) | payer MEDICARE, OTHER ==
--- NOTE | 2019-11-16 14:58 | ED Physician Documentation ---
PD HPI ABD PAIN - Stated complaint Stated Complaint: FEVER, ABD PX - Chief complaint Chief Complaint: Abd Pain - History obtained from History obtained from: Patient - History of Present Illness Timing - onset: Yesterday (having some lower abd cramping yesterday, and then noted fever and increased pain this morning.) Timing - duration: Days (1) Timing - details: Gradual onset, Still present Quality: Cramping, Aching, Pain Location: Periumbilical, RLQ, Suprapubic, LLQ Radiation: No: Chest, Lower back Associated symptoms: Fever, Nausea, Constipation (no BM for few days), Loss of appetite. No: Vomiting, Melena, Hematochezia, Dysuria, Weight loss Recently seen: Clinic (UTI few weeks ago, Rx with abx and seemed better. Was in [place] at the time. Now here with daughter.) Review of Systems Constitutional: reports: Fever (this morning), Myalgias, Fatigue Nose: denies: Rhinorrhea / runny nose, Congestion Throat: denies: Sore throat Cardiac: denies: Chest pain / pressure, Palpitations Respiratory: denies: Dyspnea, Cough GI: reports: Abdominal Pain, Nausea, Constipation. denies: Abdominal Swelling, Vomiting, Diarrhea, Bloody / black stool : denies: Dysuria, Frequency Skin: denies: Rash, Lesions Neurologic: reports: Generalized weakness, Confused. denies: Focal weakness, Numbness, Altered mental status, Headache Psychiatric: denies: Depressed, Anxiety Endocrine: reports: Easy bruising / bleeding Immunocompromised: denies: Immunocompromised PD PAST MEDICAL HISTORY - Past Medical History Cardiovascular: High cholesterol Respiratory: None Neuro: Headaches, Migraines Endocrine/Autoimmune: None GI: GERD, GI bleed, Hiatal hernia : Incontinence, Indwelling catheter HEENT: Chronic hearing loss Musculoskeletal: None, Other Derm: None - Past Surgical History Past Surgical History: Yes General: Cholecystectomy /PLACEMENT OFFICER: Hysterectomy HEENT: Cataracts - Present Medications Home Medications: Ambulatory Orders Medication Instructions Recorded Confirmed Calcium Carbonate/Vitamin D3 1 each PO DAILY 12/12/18 12/31/18 [Calcium 600-Vit D3 400 Tablet] Cyanocobalamin (Vitamin B-12) 1,000 mcg SL DAILY 12/12/18 12/31/18 [Vitamin B-12 (1000 mcg sublingual)] Flaxseed Oil 1,000 mg PO DAILY 12/12/18 12/31/18 Fluoxetine HCl [Prozac] 20 mg PO DAILY 12/12/18 12/31/18 Lactobacillus Rhamnosus GG 1 cap PO DAILY 12/12/18 12/31/18 [Culturelle] Lansoprazole [Prevacid] 15 mg PO BID 12/12/18 12/31/18 Lovastatin 40 mg PO QPM 12/12/18 12/31/18 Multivitamin [Theragran] 1 each PO DAILY 12/12/18 12/31/18 Sulfamethox/Trimeth 800/160 1 each PO QPM 12/12/18 12/31/18 [Bactrim Ds] Butalb/Acetaminophen/Caffeine 1 each PO BID PRN #30 capsule 12/13/18 12/31/18 [Fioricet 50-300-40 mg Capsule] Ferrous Gluconate 240 mg PO DAILY #30 tablet 12/13/18 12/31/18 Omeprazole 40 mg PO BID #60 capsule. 12/31/18 - Allergies Allergies/Adverse Reactions: Allergies Allergy/AdvReac Type Severity Reaction Status Date / Time Penicillins Allergy Rash Verified 12/30/18 14:31 - Living Situation Living Situation: reports: With family (her daughter is here from [place] to take care of her. ) Living Arrangement: reports: At home - Social History Does the pt smoke?: No Smoking Status: Never smoker PD ED PE NORMAL - Vitals Vital signs reviewed: Yes - General General: Alert and oriented X 3, Well developed/nourished, Other (appears in pain from lower abd. ) - HEENT HEENT: PERRL (nonicteric), Moist mucous membranes, Pharynx benign - Neck Neck: Supple, no meningeal sign, No adenopathy - Cardiac Cardiac: No murmur. No: RRR (regular but tachycardic) - Respiratory Respiratory: No respiratory distress, Clear bilaterally - Abdomen Abdomen: Soft, Non tender, No organomegaly, Other (decreased bowel sounds. Has moderate tenderness to percussion and palpation in lower abd mostly midline but some to left and right. ) - Female Female : Deferred - Rectal Rectal: Deferred - Back Back: No CVA TTP - Derm Derm: Normal color, Warm and dry - Extremities Extremities: No tenderness to palpate, No edema, No calf tenderness / cord - Neuro Neuro: Alert and oriented X 3, No motor deficit, Normal speech Eye Opening: Spontaneous Motor: Obeys Commands Verbal: Oriented GCS Score: 15 - Psych Psych: Normal mood, Normal affect Results - Vitals Vitals: Vital Signs - 24 hr 11/16/19 11/16/19 11/16/19 14:32 14:36 15:06 Temperature 36.4 C L Heart Rate 110 H 110 H 100 Respiratory 20 20 16 Rate Blood Pressure 107/67 107/67 102/59 L O2 Saturation 97 97 97 11/16/19 11/16/19 11/16/19 15:22 15:30 16:00 Temperature 37.4 C Heart Rate 99 95 100 Respiratory 16 14 14 Rate Blood Pressure 100/50 L 76/57 L O2 Saturation 99 99 98 11/16/19 11/16/19 16:19 16:30 Temperature Heart Rate 100 Respiratory 14 Rate Blood Pressure 96/60 119/62 O2 Saturation 98 Oxygen O2 Source Room air - Labs Labs: Laboratory Tests 11/16/19 11/16/19 11/16/19 15:10 15:10 15:10 WBC 5.6 RBC 3.91 L Hgb 10.3 L Hct 33.0 L MCV 84.4 MCH 26.3 L MCHC 31.2 L RDW 21.1 H Plt Count 306 MPV 9.0 Neut # (Auto) 4.5 Lymph # (Auto) 0.7 L Nash # (Auto) 0.3 Eos # (Auto) 0.1 Baso # (Auto) 0.0 Absolute Nucleated RBC 0.00 Nucleated RBC % 0.0 Manual Slide Review Indicated Platelet Estimate NORMAL (130-450,000) Platelet Morphology NORMAL APPEARANCE RBC Morph Micro Appear 1+ HYPOCHROMASIA Sodium 137 Potassium 3.1 L Chloride 104 Carbon Dioxide 22 Anion Gap 11.0 BUN 18 Creatinine 0.7 Estimated GFR (MDRD) 79 L Glucose 144 H Lactic Acid 1.5 Calcium 8.3 L Magnesium Total Bilirubin 0.6 AST 34 ALT 20 Alkaline Phosphatase 118 Total Protein 6.2 L Albumin 3.4 Globulin 2.8 Albumin/Globulin Ratio 1.2 Lipase 30 Urine Color Urine Clarity Urine pH Ur Specific [place] Urine Protein Urine Glucose (UA) Urine Ketones Urine Occult Blood Urine Nitrite Urine Bilirubin Urine Urobilinogen Ur Leukocyte Esterase Urine RBC Urine WBC Ur Squamous Epith Cells Urine Bacteria Ur Microscopic Review Urine Culture Comments 11/16/19 11/16/19 15:10 17:02 WBC RBC Hgb Hct MCV MCH MCHC RDW Plt Count MPV Neut # (Auto) Lymph # (Auto) Nash # (Auto) Eos # (Auto) Baso # (Auto) Absolute Nucleated RBC Nucleated RBC % Manual Slide Review Platelet Estimate Platelet Morphology RBC Morph Micro Appear Sodium Potassium Chloride Carbon Dioxide Anion Gap BUN Creatinine Estimated GFR (MDRD) Glucose Lactic Acid Calcium Magnesium 1.6 L Total Bilirubin AST ALT Alkaline Phosphatase Total Protein Albumin Globulin Albumin/Globulin Ratio Lipase Urine Color LIGHT YELLOW Urine Clarity HAZY Urine pH 5.0 Ur Specific [place] 1.025 Urine Protein NEGATIVE Urine Glucose (UA) NEGATIVE Urine Ketones TRACE Urine Occult Blood TRACE-INTA Urine Nitrite POSITIVE H Urine Bilirubin NEGATIVE Urine Urobilinogen 0.2 (NORMAL) Ur Leukocyte Esterase NEGATIVE Urine RBC 0-5 Urine WBC 4-5 Ur Squamous Epith Cells FEW Squamous Urine Bacteria Many H Ur Microscopic Review INDICATED Urine Culture Comments INDICATED - Rads (name of study) abd/pelvic CT Radiology: Prelim report reviewed (significant stool burden. Colonic wall thic kening and edema without focal abscess, perforation, nor free fluid. Some A/F levels in small bowel c/w likely obstipation. No kidney stones. large hiatal hernia. ), See rad report PD MEDICAL DECISION MAKING - ED course Complexity details: reviewed results (acute colitis. Significant amount of colonic stool leading to partial obstruction pattern of small bowel. Some UTI by UA. ), re-evaluated patient (having still lower abd pain and tenderness though moderately improved. nausea. Has colitis. Will not likely do well at home. ), c onsidered differential, d/w patient, d/w family, d/w lead sales consultant (Hospitalist, Dr. Bernstein) Departure - Departure Disposition: 66 [facility] DC/Xfer Clinical Impression: Lower abdominal pain, Acute colitis UTI (urinary tract infection) Qualifiers: Urinary tract infection type: acute cystitis Hematuria presence: without hematuria Qualified Code(s): N30.00 - Acute cystitis without hematuria Constipation Qualifiers: Constipation type: unspecified constipation type Qualified Code(s): K59.00 - Constipation, unspecified Condition: Stable Record reviewed to determine appropriate education?: Yes Discharge Date/Time: 11/16/19 18:23
[2019-11-16 15:15] LABS: BASOPHILS % (AUTO) 0.2 %; EOSINOPHILS # (AUTO) 0.1 10^3/uL (0.0-0.7); EOSINOPHILS % (AUTO) 1.6 %; HGB - HEMOGLOBIN 10.3 g/dL (12.0-16.0); LYMPHOCYTES # (AUTO) 0.7 10^3/uL (1.5-3.5); LYMPHOCYTES % (AUTO) 13.3 %; MEAN CORPUSCULAR HEMOGLOBIN 26.3 pg (27.0-31.0); MEAN CORPUSCULAR HGB CONC 31.2 g/dL (32.0-36.0); MEAN CORPUSCULAR VOLUME 84.4 fL (81.0-99.0); MONOCYTES # (AUTO) 0.3 10^3/uL (0.0-1.0); NEUTROPHILS # (AUTO) 4.5 10^3/uL (1.5-6.6); NEUTROPHILS % (AUTO) 79.7 %; PLT - PLATELET COUNT 306 10^3/uL (130-450); RED BLOOD COUNT 3.91 10^6/uL (4.20-5.40); RED CELL DISTRIBUTION WIDTH 21.1 % (12.0-15.0); WHITE BLOOD COUNT 5.6 x10^3/uL (4.8-10.8)
[2019-11-16] MEDS ORDERED: MORPHINE 2 MG/ML CARPUJECT IVP STA (15:18)
[2019-11-16] MEDS ORDERED: SODIUM CHLORIDE 0.9% 1,000 ML IV STA ×2 (15:18→17:00)
[2019-11-16] MEDS ORDERED: ONDANSETRON 4 MG/2 ML VIAL IVP STA (15:18)
[2019-11-16 15:29] LABS: ALBUMIN 3.4 g/dL (3.2-5.5); ALBUMIN/GLOBULIN RATIO 1.2 (1.0-2.2); BILIRUBIN,TOTAL 0.6 mg/dL (0.2-1.0); CALCIUM 8.3 mg/dL (8.5-10.3); CREATININE 0.7 mg/dL (0.4-1.0); TOTAL PROTEIN 6.2 g/dL (6.7-8.2)
[2019-11-16] MEDS ORDERED: IOVERSOL 320 100 ML VIAL IVP ONE ×2 (15:31→20:35)
[2019-11-16] MEDS ORDERED: POTASSIUM CHLOR 10 MEQ/100 ML 10 MEQ/100 ML BAG IV ONE (15:39)
[2019-11-16] MEDS ORDERED: MAGNESIUM SULFATE 2 GRAM 2 GM/50 ML BAG IV ONE (15:39)
--- NOTE | 2019-11-16 16:07 | XRAY Report ---
PROCEDURE: Chest 1 View X-Ray INDICATIONS: fever TECHNIQUE: One view of the chest was acquired. COMPARISON: 09/12/2017 FINDINGS: Surgical changes and devices: None. Lungs and pleura: No pleural effusions or pneumothorax. Lungs are clear. Mediastinum: Mediastinal contours appear normal. Heart size is normal. Bones and chest wall: No suspicious bony lesions. Overlying soft tissues appear unremarkable. IMPRESSION: No acute cardiopulmonary disease process. Reviewed by: Caryl Johnston MD, PhD on 11/16/2019 4:06 PM PDT Approved by: Caryl Johnston MD, PhD on 11/16/2019 4:06 PM PDT Station ID: [id number]
[2019-11-16 16:18] LABS: PLATELET ESTIMATE, MANUAL NORMAL (130-450,000) (NORMAL); PLATELET MORPHOLOGY NORMAL APPEARANCE (NORMAL)
--- NOTE | 2019-11-16 16:35 | CT Report ---
PROCEDURE: Abdomen/Pelvis W INDICATIONS: lower to mid abd pain, fever today CONTRAST: IV CONTRAST: Optiray 320 ml: 80 PO CONTRAST: *NO PO CONTRAST TECHNIQUE: After the administration of oral and intravenous contrast, 5 mm thick sections acquired from the diap hragms to the symphysis. 5 mm thick coronal and sagittal reformats were acquired. For radiation dos e reduction, the following was used: automated exposure control, adjustment of mA and/or kV accordin g to patient size. COMPARISON: None. FINDINGS: Image quality: Excellent. ABDOMEN: Lung bases: There is atelectasis and scarring in the lung bases. An indistinct curvilinear nodule is also demonstrated within the left lower lobe measuring up to approximately 1.8 cm. Heart size is norm al. There is a moderate to large hiatal hernia. The visualized distal esophagus demonstrates prominen t fluid distention. Solid organs: Evaluation of the liver demonstrates no focal hepatic lesions. The gallbladder is surg ically absent. There is intra and extra hepatic biliary ductal dilatation, with the common bile duct measuring up to approximately 0.9 cm. This demonstrates tapering into the ampulla of Vater without a calcified obstructing stone or discrete mass visualized. The pancreatic duct demonstrates borderline dilatation measuring up to 0.3 cm. No discrete pancreatic mass visualized. The spleen is normal in si ze. No adrenal nodules. Kidneys demonstrate no hydronephrosis. The Peritoneum and bowel: There is moderate to severe stool distention of the rectosigmoid colon with ass ociated segmental colonic wall thickening. The proximal colon also demonstrates moderate to severe st ool distention extending to the ileocecal junction. There is mild fluid distention of the terminal il eum with a few air-fluid levels in the distal small bowel. The rectum is nondistended distally. There is a small amount of intraperitoneal free fluid. No free air. Nodes and vessels: No retroperitoneal or mesenteric adenopathy by size criteria. Aorta and inferior vena cava are normal in size. Miscellaneous: No ventral hernias. PELVIS: Genitourinary: Bladder wall thickness is normal. Miscellaneous: No inguinal hernias or adenopathy. Bones: No suspicious bony lesions. No vertebral body compression fractures. IMPRESSION: 1. Segmental wall thickening in the sigmoid colon consistent with a nonspecific colitis, infectious o r inflammatory versus ischemic. 2. Associated moderate to severe stool distention is demonstrated in the sigmoid colon as well as mor e proximally throughout the colon with mild fluid distention and air-fluid levels in the distal ileum . The findings are suggestive of a functional obstruction or ileus secondary to sigmoid colitis. 3. Small amount of free fluid is nonspecific but likely reactive. 4. Moderate to large hiatal hernia with fluid distention of the visualized distal esophagus. The find ings may reflect an obstruction or stricture at the gastroesophageal junction versus reflux. Reviewed by: Lucius Hernandez MD on 11/16/2019 4:34 PM PDT Approved by: Lucius Hernandez MD on 11/16/2019 4:34 PM PDT Station ID: [id number]
[2019-11-16] MEDS ORDERED: cefTRIAXone 1 GM VIAL IVP STA (16:59)
[2019-11-16] MEDS ORDERED: metroNIDAZOLE 500 MG/100 ML 500 MG/100 ML BAG IV ONE (17:00)
[2019-11-16] MEDS ORDERED: HYDROmorphone 1 MG/ML CARPUJECT IVP STA (17:00)
[2019-11-16 17:16] LABS: BILIRUBIN,URINE NEGATIVE (NEGATIVE); GLUCOSE, URINE (UA) NEGATIVE (NEGATIVE); KETONES,URINE (UA) TRACE mg/dL (NEGATIVE); LEUKOCYTE ESTERASE, URINE NEGATIVE (NEGATIVE); NITRITE,URINE POSITIVE (NEGATIVE); OCCULT BLOOD,URINE TRACE-INTA (NEGATIVE); PROTEIN,URINE NEGATIVE (NEGATIVE); UROBILINOGEN,URINE 0.2 (NORMAL) E.U./dL (NORMAL)
[2019-11-16 17:18] LABS: CLARITY,URINE HAZY (CLEAR)
[2019-11-16 17:34] LABS: BACTERIA,URINE Many /HPF (None Seen); RBC,URINE 0-5 /HPF (0-5); SQUAMOUS EPITHELIAL CELL,UR FEW Squamous (<= Few)
[2019-11-16] MEDS ORDERED: LACTATED RINGERS 1,000 ML IV ONE (17:41)
[2019-11-16] MEDS: POTASSIUM CHLOR 10 MEQ/100 ML 10 MEQ/100 ML BAG IV SCH ×3 (19:10→21:44)
[2019-11-16] MEDS: PANTOPRAZOLE 40 MG VIAL IVP SCH (19:14)
[2019-11-16] MEDS: SODIUM CHLORIDE FLUSH 0.9% 10 ML SYRINGE IVP PRN (19:15)
[2019-11-16] MEDS: LACTATED RINGERS 1,000 ML IV SCH (19:40)
[2019-11-16] MEDS ORDERED: SUMAtriptan 25 MG TABLET PO PRN (20:04)
[2019-11-16] MEDS ORDERED: SUMAtriptan 6 MG/0.5 ML VIAL SUBQ ONE (20:04)
[2019-11-16] MEDS: metroNIDAZOLE 500 MG/100 ML 500 MG/100 ML BAG IV SCH (21:34)
[2019-11-16] MEDS: MORPHINE 2 MG/ML CARPUJECT IVP PRN (21:42)
--- NOTE | 2019-11-16 23:35 | HISTORY & PHYSICAL EXAMINATION ---
Chief Complaint - Chief Complaint Chief Complaint: Abdominal pain and fever <Maryse Cat - Last Filed: 11/17/19 00:22> History of Present Illness - Admitted From Admitted From:: ED - History Obtained From Records Reviewed: [facility] History obtained from: Patient and previous chart notes Exam Limitations: none <Maryse Cat - Last Filed: 11/17/19 00:22> - History of Present Illness HPI Comment/Other: Pt is an 89yo female brought to ED today by her daughter for worsening abdominal pain and fever. The pt has a history significant for bowel incontinence, urinary retention with self catheterization and recurrent UTIs as well as chronic abdominal pain. This morning her pain was worse than usual making her too weak to get up and perform ADLs. Her daughter took her temp and found it to be 101.6F prompting the daughter to bring her to . The patient reports feeling feverish and chills this morning, and describes her pain as "hurting with spikes". She utilized tylenol for her pain management with last known self-dosing at 1300 today. She recalls having a normal BM this morning, denies any blood in her stool or pain with defecation. Last consumed meal was h half-way of her dinner last night, otherwise she has had decreased appetite and reports a 15lb weight loss since February 2019. PE significant for absent bowel tones in RUQ, LUQ and LLQ with hypoactive sounds in RLQ. Abdomen is diffusely tender to even light palpation, primarily in her mid abdomen. A landrum-systolic murmur was auscultated during exam however pt has no history of cardiac issues. Labs suggestive for UTI, electrolyte deficiency, and CT w/ contrast suggests functional obstruction with sigmoid colitis. (StephaniaMaryse) History - Past Medical History Cardiovascular: reports: High cholesterol Respiratory: reports: None Neuro: reports: Headaches, Migraines, Tremors Endocrine/Autoimmune: reports: None, Other (Sjogrens disease) GI: reports: GERD (With barretts Esophagus), GI bleed, Hiatal hernia, Other (Daily bowel incontinence, ) JAVA LEAD: reports: Other (Hysterectomy) : reports: Retention, Chronic bladder infection HEENT: reports: Chronic hearing loss Psych: reports: None Musculoskeletal: reports: Osteoarthritis, Other Derm: reports: None MRSA Hx?: No Other Past Medical History: rectal prolapse - Past Surgical History General: reports: Cholecystectomy, Appendectomy, Colonoscopy, EGD /JAVA LEAD: reports: Hysterectomy HEENT: reports: Cataracts - Family & Social History Family History: Mother: , Father: , Sister: , Brother: Family History Comment/Other: Mother passed from Ca (unknown type) at 78, father passed from cardiac disease around 75, 1 brother and 2 sisters have all passed; 2 from cancer, one unknown cause. Living arrangement: At home Living Situation: With family Social History Notes: Pt was recently staying with daughter in [place] for the last 6 months and just returned to [place] on 11/06. Her daughter has returned with her and is building a house across the street from her mother to live in half of the year. - Substance History Use: Uses substance without health or social issues: NONE Abuse: Recurrent use of substance despite neg consequences: NONE Dependence: Experiences withdrawal or developed tolerances: NONE - POLST Patient has POLST: Yes POLST Status: DNR <Maryse Cat - Last Filed: 11/17/19 00:22> Meds/Allgy <Maryse Cat - Last Filed: 11/17/19 00:22> <Elizabeth Beauchamp - Last Filed: 11/17/19 00:33> - Home Medications Home Medications: Ambulatory Orders Medication Instructions Recorded Confirmed Calcium Carbonate/Vitamin D3 1 each PO DAILY 12/12/18 12/31/18 [Calcium 600-Vit D3 400 Tablet] Cyanocobalamin (Vitamin B-12) 1,000 mcg SL DAILY 12/12/18 12/31/18 [Vitamin B-12 (1000 mcg sublingual)] Flaxseed Oil 1,000 mg PO DAILY 12/12/18 12/31/18 Fluoxetine HCl [Prozac] 20 mg PO DAILY 12/12/18 12/31/18 Lactobacillus Rhamnosus GG 1 cap PO DAILY 12/12/18 12/31/18 [Culturelle] Lansoprazole [Prevacid] 15 mg PO BID 12/12/18 12/31/18 Lovastatin 40 mg PO QPM 12/12/18 12/31/18 Multivitamin [Theragran] 1 each PO DAILY 12/12/18 12/31/18 Sulfamethox/Trimeth 800/160 1 each PO QPM 12/12/18 12/31/18 [Bactrim Ds] Butalb/Acetaminophen/Caffeine 1 each PO BID PRN #30 capsule 12/13/18 12/31/18 [Fioricet 50-300-40 mg Capsule] Ferrous Gluconate 240 mg PO DAILY #30 tablet 12/13/18 12/31/18 Omeprazole 40 mg PO BID #60 capsule. 12/31/18 - Allergies Allergies/Adverse Reactions: Allergies Allergy/AdvReac Type Severity Reaction Status Date / Time Penicillins Allergy Rash Verified 12/30/18 14:31 Review of Systems - Constitutional Constitutional: reports: Fatigue, Fever, Chills, Weakness, Weight loss, Other (reports a 15lb weight loss since February 2019) - Ears, Nose & Throat Ears, Nose & Throat: reports: Hearing loss - Cardiovascular Cariovascular: reports: Other (denies palpitations, diaphoresis or edema to extremities.) - Respiratory Respiratory: reports: SOB with exertion, Other (SOB causes her to walk holding on to furniture.) - Gastrointestinal Gastrointestinal: reports: Abdominal pain, Poor appetite, Other (Reports having daily bowel incontinence. Denies N/V/D, reports an "aversion" to food.) - Genitourinary Genitourinary: reports: Other (urinary retention requiring 2x daily self catheterization. Reports recurrent UTI.) - Musculoskeletal Musculoskeletal: reports: Other (Recent twisting of L ankle 1 month ago.) - Neurological Neurological: reports: Dizziness - Endocrine Endocrine: reports: Intolerance to cold (Pt expresses extreme cold after eatin g.) - Hematologic/Lymphatic Hematologic/Lymphatic: reports: Anemia (Chronic iron deficiency anemia.) <Maryse Cat - Last Filed: 11/17/19 00:22> <Maryse Cat - Last Filed: 11/17/19 00:22> Prior Level of Functionality: Prior to this morning pt was able to perform ADLs with assistance from daughter to lift heavier items such as a jug of milk. New onset over past couple months of feeling "winded" while ambulating requiring her to hold on to furniture while walking. Local MD has prescribed PT to patient, appointment pending. (Maryse Cat) Exam - Vital Signs Reviewed Vital Signs: Yes - Physical Exam General Appearance: positive: No acute distress Eyes Bilateral: positive: Normal inspection, PERRL ENT: positive: Dry mucous membranes (Pt has frequent dry mouth from sjogren's disease) Neck: positive: Nml inspection Respiratory: positive: No respiratory distress, Breath sounds nml (CAB) Cardiovascular: positive: Tachycardia, Systolic murmur Peripheral Pulses: positive: 1+ Abdomen: positive: Tenderness, Abnml bowel sounds (BS absent in RUQ, LUQ, LLQ and hypoactive in RLQ) Skin: positive: Dry, Pallor Extremities: positive: Non-tender, Other (Pt appears cachectic) Neurologic/Psychiatric: positive: Oriented x3, Mood/affect nml, Other (tremors present) <Maryse Cat - Last Filed: 11/17/19 00:22> - Vital Signs Vital Signs: Vital Signs x48h Temp Pulse Pulse Pulse Resp BP BP 11/16/19 23:45 38.2 C H 105 H 16 100/47 L 11/16/19 21:00 37.3 C 102 H 16 102/46 L 11/16/19 20:02 104 H 11/16/19 19:41 37.2 C 115 H 20 11/16/19 18:40 37.8 C H 102 H 16 92/42 L 11/16/19 18:00 97 12 100/60 11/16/19 17:45 104 H 18 99/52 L 11/16/19 16:30 100 14 119/62 BP Pulse Ox 11/16/19 23:45 95 11/16/19 21:00 96 11/16/19 20:02 11/16/19 19:41 111/83 H 11/16/19 18:40 99 11/16/19 18:00 100 11/16/19 17:45 98 11/16/19 16:30 98 Conclusion/Plan - Problem List (1) Large bowel obstruction Conclusion/Plan: DDX: Functional obstruction Mechanical obstruction Adhesion of bowel Ischemic bowel Volvulus Sigmoid colitis Acute pseudo obstruction Mechanical, adhesion of bowel and volvulus were ruled out with CT results. Working diagnosis of acute pseudo obstruction secondary to urinary retention with sigmoid colitis. Per up-to-date resource, in some cases colonic obstruction can be caused by urinary retention. Pt has a hx of chronic urinary retention. Additionally, CT scan is suggestive of sigmoid colitis. To address both of these issues IV antibiotics of Cipro and Flagyl will be administer, which will also address the patient's UTI, and administration of lactated ringers for hydration of bowel and electrolytes. Repeat CBC in the morning to be sure inflammation is not worsening, monitor vitals q4hr for trend of BP, HR and temp. Pt will be NPO until resolution of bowel obstruction. Surgical consult placed. (2) UTI (urinary tract infection), uncomplicated Conclusion/Plan: UA was positive for nitrites and squamous cells. Pt has a hx of recurrent UTI secondary to her daily bowel incontinence and urinary retention requiring self- catheterization. Antibiotics of Cipro and Flagyl ordered as well as fluids of LR for hydration. Repeat BMP in AM to monitor kidney function. (3) Abdominal pain Conclusion/Plan: Secondary to large bowel obstruction and chronic pain. Ordered Acetaminophen PRN for pain as patient utilizes this method at home with good relief and Morphine IVP PRN. Note to be conservative with narcotic to not exacerbate bowel obstruction. Qualifiers: Abdominal location: generalized Qualified Code(s): R10.84 - Generalized abdominal pain (4) Anemia, iron deficiency Conclusion/Plan: Pt has hx of iron deficiency anemia, labs indicative of anemia. Recheck iron levels to verify iron supplement is being absorbed or if additional dosing is needed. Consult with nutrition for dietary intake of iron. Repeat CBC daily until discharge. Qualifiers: Iron deficiency anemia type: unspecified iron deficiency Qualified Code(s): D50.9 - Iron deficiency anemia, unspecified (5) Cardiac murmur Conclusion/Plan: This is a new finding during admitting assessment. Ordered echo for tomorrow to assess cardiac/valve function. EKG from ED showed sinus tachycardia. Pt is asymptomatic. (6) Electrolyte imbalance Conclusion/Plan: Replacing electrolytes PRN, primarily potassium and mag. Repeat BMP in the morning. - Lab Results Lab results reviewed: Yes Fish Bones: 11/16/19 15:10 11/16/19 15:10 - Diagnostic Imaging Results Diagnostic Imaging Results: positive: See rad report - EKG Results EKG Interpreted Independently: Yes <Maryse Cat - Last Filed: 11/17/19 00:22> - Problem List (1) Large bowel obstruction Conclusion/Plan: Patient seen and examined with DNP student. I agree with documentation and differential diagnosis review. She is an elderly female who has chronic urinary and abdominal complaints and now presents with worsening abdominal pain that was abrupt in onset this morning. Of note she does have a history of previous abdominal surgeries. 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 Her last bowel movement was this morning, and she last ate last night. She has a low-grade fever, diffuse abdominal pain with hypoactive bowel sounds or no bowel sounds depending which quadrant you listen to. She is a tiny cachectic elderly female with tremors. CT shows a large bowel functional obstruction vs ileus. With sigmoid colitis. Labs show elevated white cell count, hypokalemia, and urine has squamous cells with indications of positive nitrites. She has been started on empiric antibiotic therapy for her bowel colitis, surgical consult was been obtained. She will be seen tomorrow morning. They do not want us to do enemas to see if we can improve stool impaction. The antibiotics for colitis will cover possible UTI. She continues to have chronic iron deficiency anemia, a cardiac murmur not previously documented. As such echo will be obtained. Electrolytes will be supplemented. - Lab Results Fish Bones: 11/16/19 15:10 11/16/19 15:10 <Elizabeth Beauchamp - Last Filed: 11/17/19 00:33> Core Measures - Anticipated LOS I expect patient to be DC'd or transferred within 96 hours.: Yes - DVT/VTE - Prophylaxis VTE/DVT Device ordered at admit?: Yes VTE/DVT Prophylaxis med ordered at admit?: Yes - Stroke - Rehab Assessment Rehab services assessment to be ordered?: No <Maryse Cat - Last Filed: 11/17/19 00:22>
[2019-11-17] MEDS: CIPROFLOXACIN 400 MG/200 ML 400 MG/200 ML BAG IV SCH ×2 (00:02→11:18)
[2019-11-17] MEDS: ACETAMINOPHEN 325 MG TABLET PO PRN ×2 (00:02→17:12)
[2019-11-17] MEDS: SODIUM CHLORIDE FLUSH 0.9% 10 ML SYRINGE IVP SCH ×3 (00:03→17:13)
[2019-11-17] MEDS: MORPHINE 2 MG/ML CARPUJECT IVP PRN ×5 (02:36→21:04)
[2019-11-17 05:43] LABS: BASOPHILS % (AUTO) 0.3 %; EOSINOPHILS # (AUTO) 0.2 10^3/uL (0.0-0.7); EOSINOPHILS % (AUTO) 2.7 %; HGB - HEMOGLOBIN 8.3 g/dL (12.0-16.0); LYMPHOCYTES # (AUTO) 1.5 10^3/uL (1.5-3.5); LYMPHOCYTES % (AUTO) 20.6 %; MEAN CORPUSCULAR HEMOGLOBIN 25.9 pg (27.0-31.0); MEAN CORPUSCULAR HGB CONC 30.2 g/dL (32.0-36.0); MEAN CORPUSCULAR VOLUME 85.7 fL (81.0-99.0); MEAN PLATELET VOLUME 9.2 fL (7.9-10.8); MONOCYTES # (AUTO) 0.3 10^3/uL (0.0-1.0); MONOCYTES % (AUTO) 3.6 %; NEUTROPHILS # (AUTO) 5.4 10^3/uL (1.5-6.6); NEUTROPHILS % (AUTO) 72.5 %; PLT - PLATELET COUNT 280 10^3/uL (130-450); RED BLOOD COUNT 3.21 10^6/uL (4.20-5.40); RED CELL DISTRIBUTION WIDTH 21.2 % (12.0-15.0); WHITE BLOOD COUNT 7.4 x10^3/uL (4.8-10.8)
[2019-11-17] MEDS: metroNIDAZOLE 500 MG/100 ML 500 MG/100 ML BAG IV SCH ×3 (05:48→22:08)
[2019-11-17 05:52] LABS: CALCIUM 7.7 mg/dL (8.5-10.3); CREATININE 0.6 mg/dL (0.4-1.0); PHOSPHORUS 3.2 mg/dL (2.5-4.6)
[2019-11-17] MEDS: PANTOPRAZOLE 40 MG VIAL IVP SCH (06:01)
[2019-11-17 06:10] LABS: PLATELET ESTIMATE, MANUAL NORMAL (130-450,000) (NORMAL); PLATELET MORPHOLOGY NORMAL APPEARANCE (NORMAL)
[2019-11-17] MEDS: ENOXAPARIN 40 MG/0.4 ML SYRINGE SUBQ SCH (08:16)
--- NOTE | 2019-11-17 08:53 | PHARMACY PROGRESS NOTE ---
- Best Possible Medication History Admit Date and Time: 11/16/19 1716 Processed by: Pharmacy Medication History completed: Yes Secondary Source(s): Physician records, Pharmacy records, Insurance records, Previous admit records As the person ultimately responsible for medication therapy, providers are able to order a medication from an existing home medication list in [facility] via the "Reconcile Routine" prior to Confirmation of that medication by residential direct support professional. Such practice is discouraged except when the physician, in their clinical judgment, deems that a medical need exists for a medication without regard to previous use.
[2019-11-17] MEDS ORDERED: cefTRIAXone 1 GM in SODIUM CHLORIDE 0.9% MINIBAG 100 ML IV SCH (09:00)
[2019-11-17] MEDS ORDERED: MINERAL OIL 473 ML BOTTLE PO ONE (10:21)
[2019-11-17] MEDS: LACTATED RINGERS 1,000 ML IV SCH ×2 (11:17→14:29)
--- NOTE | 2019-11-17 13:27 | PROVIDER PROGRESS NOTE ---
Assessment/Plan - Problem List (1) UTI (urinary tract infection) Qualifiers: Urinary tract infection type: acute cystitis Hematuria presence: without hematuria Qualified Code(s): N30.00 - Acute cystitis without hematuria Assessment/Plan: Pt has a hx of recurrent UTI secondary to her daily bowel incontinence and urinary retention requiring self-catheterization. She had a fever at midnight. Apparently, she had a COVID test sent due to having a fevera t home, despite no pulmonary symptoms. Isolation continues. Result is expected tomorrow. UA was positive for nitrites and bacteria, but serum WBC count was normal at a dmission yesterday evening. Since admission, we started antibiotics of Cipro and Flagyl (ordered for the colitis) as well as this UTI. Continue iv fluids of LR for hydration. Follow CBC and BMP daily (2) Gram-negative bacteremia Assessment/Plan: The blood cultures which were taken from the ER, have already turned positive for gram-negative bacteria, likely urine source therefore. Continue with iv Cipro currently. Await bacterial identification and sensitivities. Recheck blood culture to assure it is negative on this management. Follow CBC daily. (3) Acute colitis Assessment/Plan: (1) Large bowel obstruction Conclusion/Plan: DDX: Functional obstruction Mechanical obstruction Adhesion of bowel Ischemic bowel Volvulus Sigmoid colitis Acute pseudo obstruction Mechanical, adhesion of bowel and volvulus were ruled out with CT results. Working diagnosis of acute pseudo obstruction secondary to urinary retention with sigmoid colitis. Per up-to-date resource, in some cases colonic obstruction can be caused by urinary retention. Pt has a hx of chronic urinary retention. Additionally, CT scan is suggestive of sigmoid colitis. To address both of these issues IV antibiotics of Cipro and Flagyl will be administer, which will also address the patient's UTI, and administration of lactated ringers for hydration of bowel and electrolytes. Repeat CBC in the morning to be sure inflammation is not worsening, monitor vitals q4hr for trend of BP, HR and temp. Pt will be NPO until resolution of bowel obstruction. Surgical consult placed. (3) Abdominal pain Conclusion/Plan: Secondary to large bowel obstruction and chronic pain. Ordered Acetaminophen PRN for pain as patient utilizes this method at home with good relief and Morphine IVP PRN. Note to be conservative with narcotic to not exacerbate bowel obstruction. Qualifiers: Abdominal location: generalized Qualified Code(s): R10.84 - Generalized abdominal pain (4) Anemia, iron deficiency Conclusion/Plan: Pt has hx of iron deficiency anemia, labs indicative of anemia. Recheck iron levels to verify iron supplement is being absorbed or if additional dosing is needed. Consult with nutrition for dietary intake of iron. Repeat CBC daily until discharge. Qualifiers: Iron deficiency anemia type: unspecified iron deficiency Qualified Code(s): D50.9 - Iron deficiency anemia, unspecified (5) Cardiac murmur Conclusion/Plan: This is a new finding during admitting assessment. Ordered echo for tomorrow to assess cardiac/valve function. EKG from ED showed sinus tachycardia. Pt is asymptomatic. (6) Electrolyte imbalance Conclusion/Plan: Replacing electrolytes PRN, primarily potassium and mag. Repeat BMP in the morning. (4) Large bowel obstruction Assessment/Plan: Mechanical obstruction and adhesion of bowel and a volvulus were ruled out with CT results. Our working diagnosis is acute pseudo obstruction secondary to urinary retention plus sigmoid colitis. Per up-to-date resource, in some cases colonic obstruction can be caused by urinary retention. Pt has a hx of chronic urinary retention. Additionally, CT scan is suggestive of sigmoid colitis. To address both of these issues IV antibiotics of Cipro and Flagyl will be administer, which will also address the patient's UTI, and administration of lactated ringers for hydration of bowel and electrolytes. Follow CBC daily to be sure inflammation is not worsening. Surgical consult pending, but Dr Noguera knows this patient and spoke to me about her, advised Mineral Oil 1 tbsp po daily and that maybe pt will need Gastrograffin challenge tomorrow, and that clear liquids are OK to start today. (5) Dysmotility of stomach Assessment/Plan: Dr. Noguera described that the patient had an EGD done last year which showed dysmotility of the esophagus as well as the stomach. (6) Anemia, iron deficiency Qualifiers: Iron deficiency anemia type: unspecified iron deficiency Qualified Code(s): D50.9 - Iron deficiency anemia, unspecified Assessment/Plan: Pt has hx of iron deficiency anemia, and her labs are indicative of anemia. Her hemoglobin was 11.3 at admission and after IV fluids has dropped to 8.3. Recheck iron levels ordered to verify iron supplement is being absorbed or if additional dosing is needed. Consult with nutrition for dietary intake of iron. Follow CBC daily until discharge. No oral iron until able to tolerate a diet. (7) Cardiac murmur Assessment/Plan: This was a new finding during admitting assessment. Ordered Echo which showed mild MS and mild TR with moderate pulm HTN. It did not show any area suspicious for vegetation, given the bactereima. I suspect the "harsh" murmur was due to high flow during a fever, since she has a normal LVEF. During "Review of systems" done yesterday, there was information that patient is more dyspneic and fatigued over the past few mos when she does daily activities. This may be secondary to the pulmonary hypertension that was found on top of a chronic anemia. (8) Hx of Sjogren's disease Assessment/Plan: This is likely adding to the dysmotility in the esophagus and stomach. It also is probably contributing to her anemia of chronic disease. - Current Meds Current Meds: Current Medications Generic Name Dose Route Start Last Admin Trade Name Freq PRN Reason Stop Dose Admin Acetaminophen 650 mg 11/16/19 17:17 11/17/19 00:02 Tylenol PO 650 mg Q4HR PRN Administration Pain 1 to 4 Enoxaparin Sodium 40 mg 11/17/19 09:00 11/17/19 08:16 Lovenox SUBQ 40 mg DAILY DORA Administration Lactated Ringer's 1,000 mls @ 100 mls/hr 11/16/19 18:00 11/17/19 12:19 Lr IV 100 mls/hr .Q10H DORA Infusion Metronidazole 500 mg in 100 mls @ 100 mls/hr 11/16/19 22:00 11/17/19 06:50 Flagyl 500 Mg/100 Ml IV Infused Q8H DORA Infusion Ciprofloxacin 400 mg in 200 mls @ 200 mls/hr 11/17/19 00:00 11/17/19 12:18 Cipro 400 Mg/200 Ml IV Infused Q12H DORA Infusion Morphine Sulfate 2 mg 11/16/19 17:17 11/17/19 05:49 Morphine (Carpuject) IVP 2 mg Q2HR PRN Administration Pain 8 to 10 Pantoprazole Sodium 40 mg 11/16/19 18:00 11/17/19 06:01 Protonix IVP 40 mg QDAC DORA Administration Sodium Chloride 10 ml 11/16/19 17:17 11/16/19 19:15 Normal Saline Flush 0.9% IVP 20 ml PRN PRN Administration NEEDED PER PROVIDER ORDERS Sodium Chloride 10 ml 11/17/19 01:00 11/17/19 09:24 Normal Saline Flush 0.9% IVP Not Given [id number] [facility] Sumatriptan Succinate 25 mg 11/16/19 20:04 11/17/19 08:17 Imitrex PO 11/21/19 20:03 25 mg ONCE PRN Administration HEADACHE - Lab Result Fish Bone Diagrams: 11/17/19 05:23 11/17/19 05:23 - Additional Planning My Orders: My Active Orders 11/17/19 Lunch Clear Liquid Diet [DIET] Subjective - Subjective Patient Reports: Pain (abdominal pain when touched, is hungry) Objective Vital Signs: Vital Signs - 24 hr 11/16/19 11/16/19 11/16/19 14:32 14:36 15:06 Temperature 36.4 C L Heart Rate 110 H 110 H 100 Heart Rate [ Brachial] Heart Rate [ Monitoring electrodes] Respiratory 20 20 16 Rate Blood Pressure 107/67 107/67 102/59 L Blood Pressure [Left Brachial artery] Blood Pressure [Right Brachial artery] O2 Saturation 97 97 97 11/16/19 11/16/19 11/16/19 15:22 15:30 16:00 Temperature 37.4 C Heart Rate 99 95 100 Heart Rate [ Brachial] Heart Rate [ Monitoring electrodes] Respiratory 16 14 14 Rate Blood Pressure 100/50 L 76/57 L Blood Pressure [Left Brachial artery] Blood Pressure [Right Brachial artery] O2 Saturation 99 99 98 11/16/19 11/16/19 11/16/19 16:19 16:30 17:45 Temperature Heart Rate 100 104 H Heart Rate [ Brachial] Heart Rate [ Monitoring electrodes] Respiratory 14 18 Rate Blood Pressure 96/60 119/62 99/52 L Blood Pressure [Left Brachial artery] Blood Pressure [Right Brachial artery] O2 Saturation 98 98 11/16/19 11/16/19 11/16/19 18:00 18:40 19:41 Temperature 37.8 C H 37.2 C Heart Rate 97 Heart Rate [ 102 H 115 H Brachial] Heart Rate [ Monitoring electrodes] Respiratory 12 16 20 Rate Blood Pressure 100/60 Blood Pressure 92/42 L [Left Brachial artery] Blood Pressure 111/83 H [Right Brachial artery] O2 Saturation 100 99 11/16/19 11/16/19 11/16/19 20:02 21:00 23:45 Temperature 37.3 C 38.2 C H Heart Rate Heart Rate [ 102 H Brachial] Heart Rate [ 104 H 105 H Monitoring electrodes] Respiratory 16 16 Rate Blood Pressure Blood Pressure 102/46 L 100/47 L [Left Brachial artery] Blood Pressure [Right Brachial artery] O2 Saturation 96 95 11/17/19 11/17/19 11/17/19 02:39 04:00 06:02 Temperature 37.6 C H 37.4 C Heart Rate Heart Rate [ Brachial] Heart Rate [ 96 Monitoring electrodes] Respiratory 16 Rate Blood Pressure Blood Pressure 89/37 L 97/35 L [Left Brachial artery] Blood Pressure [Right Brachial artery] O2 Saturation 96 11/17/19 11/17/19 11/17/19 08:09 10:41 11:27 Temperature 37.4 C 37.6 C H 37.2 C Heart Rate Heart Rate [ 105 H 104 H Brachial] Heart Rate [ 101 H Monitoring electrodes] Respiratory 20 20 17 Rate Blood Pressure Blood Pressure 93/36 L 90/39 L 95/37 L [Left Brachial artery] Blood Pressure [Right Brachial artery] O2 Saturation 92 94 98 Oxygen O2 Source Nasal cannula I&O (Last 24 Hrs): Intake and Output Totals x24h 11/15/19 11/16/19 11/17/19 23:59 23:59 23:59 Intake Total 3762.083 1385.834 Output Total 750 325 Balance 3012.083 1060.834 General: Alert, Oriented x3 HEENT: Mucous membr. moist/pink Neck: Supple Neuro: Alert, Non Focal Cardiovascular: Regular rate Respiratory: No respiratory distress Abdomen: Soft, Other (No rebound, possible guarding) Extremities: No edema - Results Results: Laboratory Results WBC 7.4 x10^3/uL (4.8-10.8) 11/17/19 05:23 RBC 3.21 10^6/uL (4.20-5.40) L 11/17/19 05:23 Hgb 8.3 g/dL (12.0-16.0) L 11/17/19 05:23 Hct 27.5 % (37.0-47.0) L 11/17/19 05:23 MCV 85.7 fL (81.0-99.0) 11/17/19 05:23 MCH 25.9 pg (27.0-31.0) L 11/17/19 05:23 MCHC 30.2 g/dL (32.0-36.0) L 11/17/19 05:23 RDW 21.2 % (12.0-15.0) H 11/17/19 05:23 Plt Count 280 10^3/uL (130-450) 11/17/19 05:23 MPV 9.2 fL (7.9-10.8) 11/17/19 05:23 Neut # (Auto) 5.4 10^3/uL (1.5-6.6) 11/17/19 05:23 Lymph # (Auto) 1.5 10^3/uL (1.5-3.5) 11/17/19 05:23 [place] # (Auto) 0.3 10^3/uL (0.0-1.0) 11/17/19 05:23 Eos # (Auto) 0.2 10^3/uL (0.0-0.7) 11/17/19 05:23 Baso # (Auto) 0.0 10^3/uL (0.0-0.1) 11/17/19 05:23 Absolute Nucleated RBC 0.00 x10^3/uL 11/17/19 05: Nucleated RBC % 0.0 /100WBC 11/17/19 05:23 Manual Slide Review Indicated 11/17/19 05:23 Platelet Estimate NORMAL (130-450,000) (NORMAL) 11/17/19 05:23 Platelet Morphology NORMAL APPEARANCE (NORMAL) 11/17/19 05:23 RBC Morph Micro Appear 1+ ANISOCYTOSIS (NORMAL) 1+ HYPOCHROMASIA (NORMAL) 11/17/19 05:23 RBC Morph Micro Appear 1+ ANISOCYTOSIS (NORMAL) 1+ HYPOCHROMASIA (NORMAL) 11/17/19 05:23 Sodium 137 mmol/L (135-145) 11/17/19 05:23 Potassium 3.7 mmol/L (3.5-5.0) 11/17/19 05:23 Chloride 108 mmol/L (101-111) 11/17/19 05:23 Carbon Dioxide 19 mmol/L (21-32) L 11/17/19 05:23 Anion Gap 10.0 (6-13) 11/17/19 05:23 BUN 14 mg/dL (6-20) 11/17/19 05:23 Creatinine 0.6 mg/dL (0.4-1.0) 11/17/19 05:23 Estimated GFR (MDRD) 94 (>89) 11/17/19 05:23 Glucose 76 mg/dL (70-100) 11/17/19 05:23 Lactic Acid 1.5 mmol/L (0.5-2.2) 11/16/19 15:10 Calcium 7.7 mg/dL (8.5-10.3) L 11/17/19 05:23 Phosphorus 3.2 mg/dL (2.5-4.6) 11/17/19 05:23 Magnesium 2.0 mg/dL (1.7-2.8) 11/17/19 05:23 Iron 17 ug/dL (28-170) L 11/17/19 05:23 Ferritin 16.7 ng/mL (11.0-306.8) 11/17/19 05:23 Total Bilirubin 0.6 mg/dL (0.2-1.0) 11/16/19 15:10 AST 34 IU/L (10-42) 11/16/19 15:10 ALT 20 IU/L (10-60) 11/16/19 15:10 Alkaline Phosphatase 118 IU/L (42-121) 11/16/19 15:10 Total Protein 6.2 g/dL (6.7-8.2) L 11/16/19 15:10 Albumin 3.4 g/dL (3.2-5.5) 11/16/19 15:10 Globulin 2.8 g/dL (2.1-4.2) 11/16/19 15:10 Albumin/Globulin Ratio 1.2 (1.0-2.2) 11/16/19 15:10 Lipase 30 U/L (22-51) 11/16/19 15:10 Carcinoembryonic Ag 1.9 ng/mL 11/17/19 05:23 Urine Color LIGHT YELLOW 11/16/19 17:02 Urine Clarity HAZY (CLEAR) 11/16/19 17:02 Urine pH 5.0 PH (5.0-7.5) 11/16/19 17:02 Ur Specific [place] 1.025 (1.002-1.030) 11/16/19 17:02 Urine Protein NEGATIVE mg/dL (NEGATIVE) 11/16/19 17:02 Urine Glucose (UA) NEGATIVE mg/dL (NEGATIVE) 11/16/19 17:02 Urine Ketones TRACE mg/dL (NEGATIVE) 11/16/19 17:02 Urine Occult Blood TRACE-INTA (NEGATIVE) 11/16/19 17:02 Urine Nitrite POSITIVE (NEGATIVE) H 11/16/19 17:02 Urine Bilirubin NEGATIVE (NEGATIVE) 11/16/19 17:02 Urine Urobilinogen 0.2 (NORMAL) E.U./dL (NORMAL) 11/16/19 17:02 Ur Leukocyte Esterase NEGATIVE (NEGATIVE) 11/16/19 17:02 Urine RBC 0-5 /HPF (0-5) 11/16/19 17:02 Urine WBC 4-5 /HPF (0-5) 11/16/19 17:02 Ur Squamous Epith Cells FEW Squamous (<= Few) 11/16/19 17:02 Urine Bacteria Many /HPF (None Seen) H 11/16/19 17:02 Ur Microscopic Review INDICATED 11/16/19 17:02 Urine Culture Comments INDICATED 11/16/19 17:02 - Procedures Procedures: Procedures EXCISION OF DUODENUM, ENDO, DIAGN (12/31/18) EXCISION OF LOWER ESOPHAGUS, ENDO, DIAGN (12/31/18) EXCISION OF STOMACH, ENDO, DIAGN (12/31/18)
--- NOTE | 2019-11-17 13:39 | CONSULTATION NOTE ---
Referring Provider Name of Referring Provider:: Simon Moss MD Consult Date: 11/17/19 Chief Complaint - Chief Complaint Chief Complaint: Colitis History of Present Illness - Admitted From Admitted From:: ED - History Obtained From Records Reviewed: Providers notes and old records History obtained from: Patient and providers Exam Limitations: None - History of Present Illness HPI Comment/Other: Very pleasant lady who is well known to me from prior visits. She has a history of anemia and esophageal dysmotility. I last saw her in December of 2018 when she had an EGD revealing a phyto bezoar and evidence of chronic gastritis without H.pylori or ulceration. Gastric emptying study followed the procedure and revealed significantly delayed gastric transit time as well as retained fluid in the distal esophagus. She was admitted last evening with acute cystitis and bacteremia with evidence of sigmoid colitis on CT. I have been consulted regarding the CT findings and treatment. History - Past Medical History Cardiovascular: reports: High cholesterol Respiratory: reports: None Neuro: reports: Headaches, Migraines Endocrine/Autoimmune: reports: None GI: reports: GERD, GI bleed, Hiatal hernia ELECTRICAL CALIBRATOR: reports: Other (Hysterectomy) : reports: Incontinence, Indwelling catheter HEENT: reports: Chronic hearing loss Psych: reports: None Musculoskeletal: reports: None, Other Derm: reports: None MRSA Hx?: No Other Past Medical History: rectal prolapse - Past Surgical History General: reports: Cholecystectomy /ELECTRICAL CALIBRATOR: reports: Hysterectomy HEENT: reports: Cataracts - Family & Social History Family History: Mother: , Father: , Sister: , Brother: Family History Comment/Other: Mother passed from [place] (unknown type) at 78, father passed from cardiac disease around 75, 1 brother and 2 sisters have all passed; 2 from cancer, one unknown cause. Living arrangement: At home Living Situation: With family (her daughter is here from [place] to take care of her. ) Social History Notes: Pt was recently staying with daughter in [place] for the last 6 months and just returned to [place] on 11/06. Her daughter has returned with her and is building a house across the street from her mother to live in half of the year. - Substance History Use: Uses substance without health or social issues: NONE Abuse: Recurrent use of substance despite neg consequences: NONE Dependence: Experiences withdrawal or developed tolerances: NONE - POLST Patient has POLST: Yes POLST Status: DNR Meds/Allgy - Home Medications Home Medications: Ambulatory Orders Medication Instructions Recorded Confirmed Calcium Carbonate/Vitamin D3 1 each PO DAILY 12/12/18 11/17/19 [Calcium 600-Vit D3 400 Tablet] Cyanocobalamin (Vitamin B-12) 1,000 mcg SL DAILY 12/12/18 11/17/19 [Vitamin B-12 (1000 mcg sublingual)] Flaxseed Oil 1,000 mg PO DAILY 12/12/18 11/17/19 Lovastatin 40 mg PO QPM 12/12/18 11/17/19 Multivitamin [Theragran] 1 each PO DAILY 12/12/18 11/17/19 Ferrous Gluconate 240 mg PO DAILY #30 tablet 12/13/18 11/17/19 Omeprazole 40 mg PO BID #60 capsule. 12/31/18 11/17/19 Butalb/Acetaminophen/Caffeine 1 each PO Q6H PRN 11/17/19 11/17/19 [Fioricet 50-300-40 mg Capsule] FLUoxetine [PROzac] 10 mg PO DAILY 11/17/19 11/17/19 Mirtazapine 7.5 mg PO DAILY 11/17/19 11/17/19 - Allergies Allergies/Adverse Reactions: Allergies Allergy/AdvReac Type Severity Reaction Status Date / Time Penicillins Allergy Rash Verified 12/30/18 14:31 Review of Systems - Constitutional Constitutional: reports: Fatigue, Fever, Chills, Malaise, Weakness, Poor appetite - Eyes Eyes: reports: Blurred vision - Ears, Nose & Throat Ears, Nose & Throat: denies: Tinnitus, Vertigo - Cardiovascular Cariovascular: reports: Lightheadedness, Exertional dyspnea. denies: Irregular heart rate, Chest pain - Respiratory Respiratory: denies: Cough, Sputum production, Wheezing, Snoring - Gastrointestinal Gastrointestinal: reports: Abdominal pain, Constipation. denies: Diarrhea - Genitourinary Genitourinary: reports: Urgency, Incontinence. denies: Hematuria, Urethral discharge - Musculoskeletal Musculoskeletal: reports: Back pain, Stiffness - Integumentary Integumentary: denies: Rash - Neurological Neurological: reports: General weakness. denies: Focal weakness Exam - Vital Signs Reviewed Vital Signs: Yes Vital Signs: Vital Signs x48h Temp Pulse Pulse Resp BP Pulse Ox 11/17/19 11:27 37.2 C 101 H 17 95/37 L 98 11/17/19 10:41 37.6 C H 104 H 20 90/39 L 94 11/17/19 08:09 37.4 C 105 H 20 93/36 L 92 11/17/19 06:02 97/35 L - Physical Exam General Appearance: positive: No acute distress, Alert, Lethargic Eyes Bilateral: positive: Normal inspection, PERRL, EOMI ENT: positive: ENT inspection nml Neck: positive: Nml inspection Respiratory: positive: Chest non-tender, No respiratory distress, Breath sounds nml Cardiovascular: positive: Regular rate & rhythm Peripheral Pulses: positive: 0 Abdomen: positive: Tenderness (Global mild tenderness to palpation with voluntary guarding. Active bowel sounds), Guarding Skin: positive: Color nml Conclusion and Plan - Lab Results Laboratory Results 11/17/19 05:23: Iron 17 L 11/17/19 05:23: Ferritin 16.7 11/17/19 05:23: Carcinoembryonic Ag 1.9 11/17/19 05:23: Sodium 137, Potassium 3.7, Chloride 108, Carbon Dioxide 19 L, Anion Gap 10.0, BUN 14, Creatinine 0.6, Estimated GFR (MDRD) 94, Glucose 76, Calcium 7.7 L, Phosphorus 3.2, Magnesium 2.0 11/17/19 05:23: WBC 7.4, RBC 3.21 L, Hgb 8.3 L, Hct 27.5 L, MCV 85.7, MCH 25.9 L, MCHC 30.2 L, RDW 21.2 H, Plt Count 280, MPV 9.2, Neut # (Auto) 5.4, Lymph # (Auto) 1.5, [place] # (Auto) 0.3, Eos # (Auto) 0.2, Baso # (Auto) 0.0, Absolute Nucleated RBC 0.00, Nucleated RBC % 0.0, Manual Slide Review Indicated, Platelet Estimate NORMAL (130-450,000), Platelet Morphology NORMAL APPEARANCE, RBC Morph Micro Appear 1+ HYPOCHROMASIA 11/16/19 17:02: Urine Color LIGHT YELLOW, Urine Clarity HAZY, Urine pH 5.0, Ur Specific [place] 1.025, Urine Protein NEGATIVE, Urine Glucose (UA) NEGATIVE, Urine Ketones TRACE, Urine Occult Blood TRACE-INTA, Urine Nitrite POSITIVE H, Urine Bilirubin NEGATIVE, Urine Urobilinogen 0.2 (NORMAL), Ur Leukocyte Esterase NEGATIVE, Urine RBC 0-5, Urine WBC 4-5, Ur Squamous Epith Cells FEW Squamous, Urine Bacteria Many H, Ur Microscopic Review INDICATED, Urine Culture Comments INDICATED 11/16/19 15:10: Magnesium 1.6 L 11/16/19 15:10: Lactic Acid 1.5 11/16/19 15:10: Sodium 137, Potassium 3.1 L, Chloride 104, Carbon Dioxide 22, Anion Gap 11.0, BUN 18, Creatinine 0.7, Estimated GFR (MDRD) 79 L, Glucose 144 H, Calcium 8.3 L, Total Bilirubin 0.6, AST 34, ALT 20, Alkaline Phosphatase 118, Total Protein 6.2 L, Albumin 3.4, Globulin 2.8, Albumin/Globulin Ratio 1.2, Li pase 30 11/16/19 15:10: WBC 5.6, RBC 3.91 L, Hgb 10.3 L, Hct 33.0 L, MCV 84.4, MCH 26.3 L, MCHC 31.2 L, RDW 21.1 H, Plt Count 306, MPV 9.0, Neut # (Auto) 4.5, Lymph # (Auto) 0.7 L, [place] # (Auto) 0.3, Eos # (Auto) 0.1, Baso # (Auto) 0.0, Absolute Nucleated RBC 0.00, Nucleated RBC % 0.0, Manual Slide Review Indicated, Platelet Estimate NORMAL (130-450,000), Platelet Morphology NORMAL APPEARANCE, RBC Morph Micro Appear 1+ HYPOCHROMASIA - Diagnostic Imaging Results Diagnostic Imaging Results: positive: Final report reviewed Diagnostic Imaging Results Comments: CT scan of the abdomen and pelvis IMPRESSION: 1. Segmental wall thickening in the sigmoid colon consistent with a nonspecific colitis, infectious or inflammatory versus ischemic. 2. Associated moderate to severe stool distention is demonstrated in the sigmoid colon as well as more proximally throughout the colon with mild fluid distention and air-fluid levels in the distal ileum. The findings are suggestive of a functional obstruction or ileus secondary to sigmoid colitis. 3. Small amount of free fluid is nonspecific but likely reactive. 4. Moderate to large hiatal hernia with fluid distention of the visualized distal esophagus. The findings may reflect an obstruction or stricture at the gastroesophageal junction versus reflux. - EKG Results EKG Interpreted Independently: No - Diagnosis Diagnosis: Anemia. Urinary tract infection. Sigmoid colitis - Plan Plan: I agree with treatment as prescribed by the Hospitalist service. I would recommend starting mineral oil 1 30 mls po qd to help with intestinal tract lubrication in the setting of Sjogren's syndrome. Ileus should resolve as cystitis resolved and we can plan for an outpatient colonoscopy if she is interested.
[2019-11-17] MEDS ORDERED: SODIUM CHLORIDE 0.9% 500 ML IV ONE (20:33)
[2019-11-18] MEDS: SODIUM CHLORIDE FLUSH 0.9% 10 ML SYRINGE IVP SCH ×4 (00:19→23:31)
[2019-11-18] MEDS: CIPROFLOXACIN 400 MG/200 ML 400 MG/200 ML BAG IV SCH ×3 (00:20→23:31)
[2019-11-18] MEDS: ACETAMINOPHEN 325 MG TABLET PO PRN ×2 (00:28→17:15)
[2019-11-18] MEDS: MORPHINE 2 MG/ML CARPUJECT IVP PRN ×3 (01:32→21:24)
[2019-11-18] MEDS: LACTATED RINGERS 1,000 ML IV SCH (01:34)
[2019-11-18 05:14] LABS: BASOPHILS % (AUTO) 0.2 %; EOSINOPHILS % (AUTO) 0.3 %; HGB - HEMOGLOBIN 8.4 g/dL (12.0-16.0); LYMPHOCYTES % (AUTO) 8.1 %; MEAN CORPUSCULAR HEMOGLOBIN 25.4 pg (27.0-31.0); MEAN CORPUSCULAR HGB CONC 30.3 g/dL (32.0-36.0); MEAN CORPUSCULAR VOLUME 83.7 fL (81.0-99.0); MEAN PLATELET VOLUME 8.9 fL (7.9-10.8); MONOCYTES % (AUTO) 5.8 %; PLT - PLATELET COUNT 285 10^3/uL (130-450); RED BLOOD COUNT 3.31 10^6/uL (4.20-5.40); RED CELL DISTRIBUTION WIDTH 21.2 % (12.0-15.0); WHITE BLOOD COUNT 12.7 x10^3/uL (4.8-10.8)
[2019-11-18 05:26] LABS: ABNORMAL LYMPHS % (MANUAL) 0 %
[2019-11-18 05:50] LABS: CALCIUM 7.2 mg/dL (8.5-10.3); CREATININE 0.6 mg/dL (0.4-1.0); MAGNESIUM 1.8 mg/dL (1.7-2.8); PHOSPHORUS 2.4 mg/dL (2.5-4.6)
[2019-11-18 05:58] LABS: BAND NEUTROPHILS % (MANUAL) 13 %; DIFFERENTIAL COMMENT MANUAL DIFFERENTIAL; LYMPHOCYTES # (MANUAL) 0.4 10^3/uL (1.5-3.5); LYMPHOCYTES % (MANUAL) 3 %; MONOCYTES # (MANUAL) 0.5 10^3/uL (0.0-1.0); PLATELET ESTIMATE, MANUAL NORMAL (130-450,000) (NORMAL)
[2019-11-18] MEDS: PANTOPRAZOLE 40 MG VIAL IVP SCH (06:16)
[2019-11-18] MEDS: metroNIDAZOLE 500 MG/100 ML 500 MG/100 ML BAG IV SCH ×3 (06:16→21:32)
[2019-11-18] MEDS: SODIUM CHLORIDE FLUSH 0.9% 10 ML SYRINGE IVP PRN ×2 (06:17→11:39)
--- NOTE | 2019-11-18 08:14 | PROVIDER PROGRESS NOTE ---
Assessment/Plan - Problem List (1) E coli bacteremia Assessment/Plan: Fever continues, low-grade. Her blood pressure is "soft" and she is tachycardic today White blood count has now increased to 12.7. COVID result is negative. We will discontinue respiratory isolation. Echo did not show vegetations Awaiting E coli sensitivities. Continue with IV antibiotics. Continue with IV fluids, increase the rate. (2) E. coli UTI Assessment/Plan: E. Coli has been identified. Await sensitivities. Will check Biogram against the E. coli in the blood, they are likely the same. (3) Acute colitis Assessment/Plan: Continue IV Cipro and Flagyl. Continued clear liquid diet for bowel rest. Continue pain meds as needed, minimizing narcotics that can add to ileus. (4) Large bowel obstruction Assessment/Plan: Dr. Noguera saw patient in follow-up today and feels she may not have obstruction but just chronic constipation. MiraLAX twice daily was recommended and has been started. Continue clear liquid diet which did not make any of the symptoms worse. (5) Dysmotility of stomach Assessment/Plan: As per Hx from Dr Noguera, who did her EGD last year and the gastric emptying study. Very likely could be related to the Sjogren's. Patient is now to get 1 tablespoon of mineral oil p.o. daily, recommended by Dr. Noguera. (6) Anemia, iron deficiency Qualifiers: Iron deficiency anemia type: unspecified iron deficiency Qualified Code(s): D50.9 - Iron deficiency anemia, unspecified Assessment/Plan: Resume her iron replacement therapy AFTER she has a BM, since oral iron can cause constipation. Follow H/H every 12 hours, she may need a transfusion if hemoglobin goes under 7. (7) Cardiac murmur Assessment/Plan: The Echo showed normal LV function, mild MS and mild TR, mild primary hypertension. Possibly she had high cardiac output during the fever which caused the harsh murmur heard at admission. (8) Hx of Sjogren's disease Assessment/Plan: As per Hx - Current Meds Current Meds: Current Medications Generic Name Dose Route Start Last Admin Trade Name Freq PRN Reason Stop Dose Admin Acetaminophen 650 mg 11/16/19 17:17 11/18/19 00:28 Tylenol PO 650 mg Q4HR PRN Administration Pain 1 to 4 Enoxaparin Sodium 40 mg 11/17/19 09:00 11/17/19 08:16 Lovenox SUBQ 40 mg DAILY DORA Administration Metronidazole 500 mg in 100 mls @ 100 mls/hr 11/16/19 22:00 11/18/19 07:16 Flagyl 500 Mg/100 Ml IV Infused Q8H DORA Infusion Ciprofloxacin 400 mg in 200 mls @ 200 mls/hr 11/17/19 00:00 11/18/19 01:22 Cipro 400 Mg/200 Ml IV Infused Q12H DORA Infusion Morphine Sulfate 2 mg 11/16/19 17:17 11/18/19 03:38 Morphine (Carpuject) IVP 2 mg Q2HR PRN Administration Pain 8 to 10 Pantoprazole Sodium 40 mg 11/16/19 18:00 11/18/19 06:16 Protonix IVP 40 mg QDAC DORA Administration Sodium Chloride 10 ml 11/16/19 17:17 11/18/19 06:17 Normal Saline Flush 0.9% IVP 10 ml PRN PRN Administration NEEDED PER PROVIDER ORDERS Sodium Chloride 10 ml 11/17/19 01:00 11/18/19 00:19 Normal Saline Flush 0.9% IVP Not Given 0100,0900,1700 DORA - Lab Result Fish Bone Diagrams: 11/18/19 05:00 11/18/19 04:50 - Additional Planning My Orders: My Active Orders 11/17/19 Lunch Clear Liquid Diet [DIET] 11/17/19 14:55 CULTURE, BLOOD #1 [RM] Urgent 11/17/19 18:58 Telemetry- [RC] Q4HR 11/18/19 08:07 Infection Precautions - Discon [RC] .ONCE 11/18/19 09:00 D5.9NS W/20 MEQ KCL @ 125 mls/hr D5ns W/20 Meq KCl 1,000 ml IV 125 mls/hr FLUoxetine [PROzac] 10 mg PO DAILY SUMAtriptan [Imitrex] 25 mg PO QID Subjective - Subjective Patient Reports: Fever (Has chills and current temperature is a low-grade fever), Headache (Complains of migraine headache.) Objective Vital Signs: Vital Signs - 24 hr 11/17/19 11/17/19 11/17/19 10:41 11:27 16:55 Temperature 37.6 C H 37.2 C Heart Rate [ 104 H Brachial] Heart Rate [ 101 H 112 H Monitoring electrodes] Respiratory 20 17 Rate Blood Pressure 90/39 L 95/37 L [Left Brachial artery] Blood Pressure [Right Brachial artery] O2 Saturation 94 98 86 L 11/17/19 11/17/19 11/17/19 17:03 18:35 19:40 Temperature 38.2 C H 38.3 C H 38.0 C H Heart Rate [ 101 H Brachial] Heart Rate [ 110 H Monitoring electrodes] Respiratory 22 18 Rate Blood Pressure 114/45 L 89/35 L [Left Brachial artery] Blood Pressure [Right Brachial artery] O2 Saturation 92 93 94 11/17/19 11/18/19 11/18/19 20:01 00:28 03:25 Temperature 37.3 C 37.7 C H 37.6 C H Heart Rate [ 100 Brachial] Heart Rate [ 110 H 106 H Monitoring electrodes] Respiratory 18 16 16 Rate Blood Pressure 88/36 L 105/69 [Left Brachial artery] Blood Pressure 93/42 L 101/46 L [Right Brachial artery] O2 Saturation 95 92 92 Oxygen O2 Source Nasal cannula I&O (Last 24 Hrs): Intake and Output Totals x24h 11/16/19 11/17/19 11/18/19 23:59 23:59 23:59 Intake Total 3762.083 3460.834 1141.666 Output Total 750 700 Balance 3012.083 2760.834 1141.666 General: Alert, Oriented x3, Other (Pale) HEENT: Mucous membr. moist/pink Neck: Supple Neuro: Non Focal Cardiovascular: Regular rate Respiratory: No respiratory distress Abdomen: Other (tender to light palpation) Extremities: No edema - Results Results: Laboratory Results WBC 12.7 x10^3/uL (4.8-10.8) H 11/18/19 05:00 RBC 3.31 10^6/uL (4.20-5.40) L 11/18/19 05:00 Hgb 8.4 g/dL (12.0-16.0) L 11/18/19 05:00 Hct 27.7 % (37.0-47.0) L 11/18/19 05:00 MCV 83.7 fL (81.0-99.0) 11/18/19 05:00 MCH 25.4 pg (27.0-31.0) L 11/18/19 05:00 MCHC 30.3 g/dL (32.0-36.0) L 11/18/19 05:00 RDW 21.2 % (12.0-15.0) H 11/18/19 05:00 Plt Count 285 10^3/uL (130-450) 11/18/19 05:00 MPV 8.9 fL (7.9-10.8) 11/18/19 05:00 Neut # (Auto) Not Reportable 11/18/19 05:00 Lymph # (Auto) Not Reportable 11/18/19 05:00 [place] # (Auto) Not Reportable 11/18/19 05:00 Eos # (Auto) Not Reportable 11/18/19 05:00 Baso # (Auto) Not Reportable 11/18/19 05:00 Absolute Nucleated RBC Not Reportable 11/18/19 05:00 Total Counted 100 11/18/19 05:00 Band Neuts % (Manual) 13 % (0-10) H 11/18/19 05:00 Abnorm Lymph % (Manual) 0 % 11/18/19 05:00 Nucleated RBC % Not Reportable 11/18/19 05:00 Neutrophils # (Manual) 11.8 10^3/uL (1.5-6.6) H 11/18/19 05:00 Lymphocytes # (Manual) 0.4 10^3/uL (1.5-3.5) L 11/18/19 05:00 Monocytes # (Manual) 0.5 10^3/uL (0.0-1.0) 11/18/19 05:00 Eosinophils # (Manual) 0.0 10^3/uL (0-0.7) 11/18/19 05:00 Basophils # (Manual) 0.0 10^3/uL (0-0.1) 11/18/19 05:00 Differential Comment MANUAL DIFFERENTIAL 11/18/19 05:00 Manual Slide Review Indicated 11/17/19 05:23 Platelet Estimate NORMAL (130-450,000) (NORMAL) 11/18/19 05:00 Platelet Morphology NORMAL APPEARANCE (NORMAL) 11/17/19 05:23 RBC Morph Micro Appear 1+ ANISOCYTOSIS (NORMAL) 1+ HYPOCHROMASIA (NORMAL) 1+ OVALOCYTES (NORMAL) 11/18/19 05:00 RBC Morph Micro Appear 1+ ANISOCYTOSIS (NORMAL) 1+ HYPOCHROMASIA (NORMAL) 1+ OVALOCYTES (NORMAL) 11/18/19 05:00 RBC Morph Micro Appear 1+ ANISOCYTOSIS (NORMAL) 1+ HYPOCHROMASIA (NORMAL) 1+ OVALOCYTES (NORMAL) 11/18/19 05:00 Sodium 134 mmol/L (135-145) L 11/18/19 04:50 Potassium 3.4 mmol/L (3.5-5.0) L 11/18/19 04:50 Chloride 106 mmol/L (101-111) 11/18/19 04:50 Carbon Dioxide 19 mmol/L (21-32) L 11/18/19 04:50 Anion Gap 9.0 (6-13) 11/18/19 04:50 BUN 15 mg/dL (6-20) 11/18/19 04:50 Creatinine 0.6 mg/dL (0.4-1.0) 11/18/19 04:50 Estimated GFR (MDRD) 94 (>89) 11/18/19 04:50 Glucose 116 mg/dL (70-100) H 11/18/19 04:50 Lactic Acid 1.5 mmol/L (0.5-2.2) 11/16/19 15:10 Calcium 7.2 mg/dL (8.5-10.3) L 11/18/19 04:50 Phosphorus 2.4 mg/dL (2.5-4.6) L 11/18/19 04:50 Magnesium 1.8 mg/dL (1.7-2.8) 11/18/19 04:50 Iron 12 ug/dL (28-170) L 11/18/19 04:50 TIBC 260 ug/dL (250-450) 11/18/19 04:50 % Saturation 5 % (20-50) L 11/18/19 04:50 Transferrin 186 mg/dL (192-382) L 11/18/19 04:50 Ferritin 16.7 ng/mL (11.0-306.8) 11/17/19 05:23 Total Bilirubin 0.6 mg/dL (0.2-1.0) 11/16/19 15:10 AST 34 IU/L (10-42) 11/16/19 15:10 ALT 20 IU/L (10-60) 11/16/19 15:10 Alkaline Phosphatase 118 IU/L (42-121) 11/16/19 15:10 Total Protein 6.2 g/dL (6.7-8.2) L 11/16/19 15:10 Albumin 3.4 g/dL (3.2-5.5) 11/16/19 15:10 Globulin 2.8 g/dL (2.1-4.2) 11/16/19 15:10 Albumin/Globulin Ratio 1.2 (1.0-2.2) 11/16/19 15:10 Lipase 30 U/L (22-51) 11/16/19 15:10 Carcinoembryonic Ag 1.9 ng/mL 11/17/19 05:23 Urine Color LIGHT YELLOW 11/16/19 17:02 Urine Clarity HAZY (CLEAR) 11/16/19 17:02 Urine pH 5.0 PH (5.0-7.5) 11/16/19 17:02 Ur Specific [place] 1.025 (1.002-1.030) 11/16/19 17:02 Urine Protein NEGATIVE mg/dL (NEGATIVE) 11/16/19 17:02 Urine Glucose (UA) NEGATIVE mg/dL (NEGATIVE) 11/16/19 17:02 Urine Ketones TRACE mg/dL (NEGATIVE) 11/16/19 17:02 Urine Occult Blood TRACE-INTA (NEGATIVE) 11/16/19 17:02 Urine Nitrite POSITIVE (NEGATIVE) H 11/16/19 17:02 Urine Bilirubin NEGATIVE (NEGATIVE) 11/16/19 17:02 Urine Urobilinogen 0.2 (NORMAL) E.U./dL (NORMAL) 11/16/19 17:02 Ur Leukocyte Esterase NEGATIVE (NEGATIVE) 11/16/19 17:02 Urine RBC 0-5 /HPF (0-5) 11/16/19 17:02 Urine WBC 4-5 /HPF (0-5) 11/16/19 17:02 Ur Squamous Epith Cells FEW Squamous (<= Few) 11/16/19 17:02 Urine Bacteria Many /HPF (None Seen) H 11/16/19 17:02 Ur Microscopic Review INDICATED 11/16/19 17:02 Urine Culture Comments INDICATED 11/16/19 17:02 Coronavirus (PCR) NEGATIVE 11/16/19 17:45 - Procedures Procedures: Procedures EXCISION OF DUODENUM, ENDO, DIAGN (12/31/18) EXCISION OF LOWER ESOPHAGUS, ENDO, DIAGN (12/31/18) EXCISION OF STOMACH, ENDO, DIAGN (12/31/18)
[2019-11-18] MEDS: ONDANSETRON 4 MG/2 ML VIAL IVP PRN (08:17)
[2019-11-18] MEDS: FLUoxetine 10 MG CAPSULE PO SCH (08:19)
[2019-11-18] MEDS: D5NS W/20 MEQ KCL 1,000 ML IV SCH ×2 (08:22→16:34)
[2019-11-18] MEDS: ENOXAPARIN 40 MG/0.4 ML SYRINGE SUBQ SCH (08:25)
[2019-11-18] MEDS ORDERED: SUMAtriptan 25 MG TABLET PO SCH (09:00)
[2019-11-18] MEDS: SUMAtriptan 25 MG TABLET PO PRN ×2 (10:57→13:38)
[2019-11-18] MEDS: PETROLATUM WHITE 5 GM PACKET TOP PRN (13:25)
[2019-11-18] MEDS: PHENOL THROAT SPRAY 177 ML MM PRN (13:25)
--- NOTE | 2019-11-18 13:45 | PROVIDER PROGRESS NOTE ---
Subjective - Prog Note Date Prog Note Date: 11/18/19 Prog Note Time: 13:43 - Subjective Pt reports feeling: Improved Subjective: Leeanne reports she doesn't feel well today. She reports she has a headache but thinks her abdominal pain may be a little better. Has not had a bowel movement. Unsure about flatus. No hungry but tolerating clear liquids, Current Medications - Current Medications Current Medications: Active Medications Generic Name Dose Route Start Last Admin Trade Name Freq PRN Reason Stop Dose Admin Acetaminophen 650 mg 11/16/19 17:17 11/18/19 00:28 Tylenol PO 650 mg Q4HR PRN Administration Pain 1 to 4 Enoxaparin Sodium 40 mg 11/17/19 09:00 11/18/19 08:25 Lovenox SUBQ 40 mg DAILY DORA Administration Fluoxetine HCl 10 mg 11/18/19 09:00 11/18/19 08:19 Prozac PO Not Given DAILY DORA Metronidazole 500 mg in 100 mls @ 100 mls/hr 11/16/19 22:00 11/18/19 13:25 Flagyl 500 Mg/100 Ml IV 100 mls/hr Q8H DORA Administration Ciprofloxacin 400 mg in 200 mls @ 200 mls/hr 11/17/19 00:00 11/18/19 12:40 Cipro 400 Mg/200 Ml IV Infused Q12H DORA Infusion Potassium Chloride/Dextrose/Sod Cl 1,000 mls @ 125 mls/hr 11/18/19 09:00 11/18/19 08:22 IV 125 mls/hr .Q8H DORA Administration Morphine Sulfate 2 mg 11/16/19 17:17 11/18/19 03:38 Morphine (Carpuject) IVP 2 mg Q2HR PRN Administration Pain 8 to 10 Ondansetron HCl 4 mg 11/16/19 17:17 11/18/19 08:17 Zofran Inj IVP 4 mg Q6HR PRN Administration Nausea / Vomiting Pantoprazole Sodium 40 mg 11/16/19 18:00 11/18/19 06:16 Protonix IVP 40 mg QDAC DORA Administration Petrolatum 1 applic 11/18/19 12:23 11/18/19 13:25 Vaseline TOP 1 applic PRN PRN Administration Dry Lips Phenol/Menthol 2 sprays 11/18/19 12:23 11/18/19 13:25 Chloraseptic MM 2 sprays Q2HR PRN Administration Throat Pain Sodium Chloride 10 ml 11/16/19 17:17 11/18/19 11:39 Normal Saline Flush 0.9% IVP 10 ml PRN PRN Administration NEEDED PER PROVIDER ORDERS Sodium Chloride 10 ml 11/17/19 01:00 11/18/19 08:17 Normal Saline Flush 0.9% IVP 10 ml 0100,0900,1700 DORA Administration Sumatriptan Succinate 50 mg 11/18/19 10:49 11/18/19 13:38 Imitrex PO 50 mg DAILY PRN Administration MIGRAINE Calcium Carbonate/Vitamin D3 [Calcium 600-Vit D3 400 Tablet] 1 each PO DAILY 12/12/18 Cyanocobalamin (Vitamin B-12) [Vitamin B-12 (1000 mcg sublingual)] 1,000 mcg SL DAILY 12/12/18 Flaxseed Oil 1,000 mg PO DAILY 12/12/18 Lovastatin 40 mg PO QPM 12/12/18 Multivitamin [Theragran] 1 each PO DAILY 12/12/18 Butalb/Acetaminophen/Caffeine [Fioricet 50-300-40 mg Capsule] 1 each PO Q6H PRN 11/17/19 FLUoxetine [PROzac] 10 mg PO DAILY 11/17/19 Mirtazapine 7.5 mg PO DAILY 11/17/19 Objective - Vital Signs/Intake & Output Reviewed Vital Signs: Yes Vital Signs: Vital Signs x48h Temp Pulse Pulse Resp BP Pulse Ox 11/18/19 11:24 37.1 C 104 H 18 92 11/18/19 11:00 37 C 103 H 18 96/42 L 93 11/18/19 08:00 36.7 C 107 H 16 90/51 L 92 Intake & Output: Intake & Output 11/15/19 11/16/19 11/17/19 11/18/19 23:59 23:59 23:59 23:59 Intake Total 3762.083 3460.834 1811.333 Output Total 750 700 350 Balance 3012.083 2760.834 1461.333 - Objective General Appearance: positive: No acute distress, Lethargic Abdomen: positive: Nml bowel sounds, No distention, Tenderness - Lab Results Fish Bones: 11/18/19 05:00 11/18/19 04:50 Other Labs: Lab Results x24hrs 11/18/19 11/18/19 11/16/19 Range/Units 05:00 04:50 17:45 WBC 12.7 H (4.8-10.8) x10^3/uL RBC 3.31 L (4.20-5.40) 10^6/uL Hgb 8.4 L (12.0-16.0) g/dL Hct 27.7 L (37.0-47.0) % MCV 83.7 (81.0-99.0) fL MCH 25.4 L (27.0-31.0) pg MCHC 30.3 L (32.0-36.0) g/dL RDW 21.2 H (12.0-15.0) % Plt Count 285 (130-450) 10^3/uL MPV 8.9 (7.9-10.8) fL Neut # (Auto) Not Reportable Lymph # (Auto) Not Reportable [place] # (Auto) Not Reportable Eos # (Auto) Not Reportable Baso # (Auto) Not Reportable Absolute Nucleated RBC Not Reportable Total Counted 100 Band Neuts % (Manual) 13 H (0 - 10) % Abnorm Lymph % (Manual) 0 % Nucleated RBC % Not Reportable Neutrophils # (Manual) 11.8 H (1.5-6.6) 10^3/uL Lymphocytes # (Manual) 0.4 L (1.5-3.5) 10^3/uL Monocytes # (Manual) 0.5 (0.0-1.0) 10^3/uL Eosinophils # (Manual) 0.0 (0-0.7) 10^3/uL Basophils # (Manual) 0.0 (0-0.1) 10^3/uL Differential Comment MANUAL DIFFERENTIAL Platelet Estimate NORMAL (130-450,000) (NORMAL) RBC Morph Micro Appear 1+ OVALOCYTES (NORMAL) Sodium 134 L (135-145) mmol/L Potassium 3.4 L (3.5-5.0) mmol/L Chloride 106 (101-111) mmol/L Carbon Dioxide 19 L (21-32) mmol/L Anion Gap 9.0 (6-13) BUN 15 (6-20) mg/dL Creatinine 0.6 (0.4-1.0) mg/dL Estimated GFR (MDRD) 94 (>89) Glucose 116 H (70-100) mg/dL Calcium 7.2 L (8.5-10.3) mg/dL Phosphorus 2.4 L (2.5-4.6) mg/dL Magnesium 1.8 (1.7-2.8) mg/dL Iron 12 L (28-170) ug/dL TIBC 260 (250-450) ug/dL % Saturation 5 L (20-50) % Transferrin 186 L (192-382) mg/dL Coronavirus (PCR) NEGATIVE Assessment/Plan - Problem List (1) Acute colitis Impression: Not convinced she actually has colitis after review of the CT. History more consistent with urosepsis and chronic constipation. Would recommend starting Miralax bid and then decrease to once daily when bowel movements return. Follow up with [facility] for outpatient colonoscopy when current issue resolved.
[2019-11-18] MEDS: polyethylene glycoL 3350 17 GM PACKET PO SCH (21:37)
[2019-11-19] MEDS: D5NS W/20 MEQ KCL 1,000 ML IV SCH ×3 (00:41→18:17)
[2019-11-19] MEDS: SUMAtriptan 25 MG TABLET PO PRN (01:28)
[2019-11-19] MEDS: ACETAMINOPHEN 325 MG TABLET PO PRN ×3 (05:19→21:21)
[2019-11-19 05:30] LABS: BASOPHILS % (AUTO) 0.2 %; EOSINOPHILS % (AUTO) 0.1 %; HGB - HEMOGLOBIN 9.1 g/dL (12.0-16.0); LYMPHOCYTES # (AUTO) 1.3 10^3/uL (1.5-3.5); LYMPHOCYTES % (AUTO) 8.3 %; MEAN CORPUSCULAR HEMOGLOBIN 25.9 pg (27.0-31.0); MEAN CORPUSCULAR HGB CONC 30.2 g/dL (32.0-36.0); MEAN CORPUSCULAR VOLUME 85.5 fL (81.0-99.0); MEAN PLATELET VOLUME 9.1 fL (7.9-10.8); MONOCYTES # (AUTO) 0.9 10^3/uL (0.0-1.0); MONOCYTES % (AUTO) 5.9 %; NEUTROPHILS # (AUTO) 13.1 10^3/uL (1.5-6.6); NEUTROPHILS % (AUTO) 84.4 %; PLT - PLATELET COUNT 321 10^3/uL (130-450); RED BLOOD COUNT 3.52 10^6/uL (4.20-5.40); RED CELL DISTRIBUTION WIDTH 21.8 % (12.0-15.0); WHITE BLOOD COUNT 15.6 x10^3/uL (4.8-10.8)
[2019-11-19 05:44] LABS: CALCIUM 7.2 mg/dL (8.5-10.3); CREATININE 0.6 mg/dL (0.4-1.0); PHOSPHORUS 1.4 mg/dL (2.5-4.6)
[2019-11-19] MEDS: SODIUM CHLORIDE FLUSH 0.9% 10 ML SYRINGE IVP PRN (05:54)
[2019-11-19] MEDS: PANTOPRAZOLE 40 MG VIAL IVP SCH (05:54)
[2019-11-19] MEDS: metroNIDAZOLE 500 MG/100 ML 500 MG/100 ML BAG IV SCH ×3 (05:54→22:20)
[2019-11-19 05:58] LABS: PLATELET ESTIMATE, MANUAL NORMAL (130-450,000) (NORMAL)
[2019-11-19] MEDS: polyethylene glycoL 3350 17 GM PACKET PO SCH ×2 (08:06→21:59)
[2019-11-19] MEDS: ENOXAPARIN 40 MG/0.4 ML SYRINGE SUBQ SCH (08:07)
[2019-11-19] MEDS: FLUoxetine 10 MG CAPSULE PO SCH (08:07)
[2019-11-19] MEDS ORDERED: cefTRIAXone 1 GM in SODIUM CHLORIDE 0.9% MINIBAG 100 ML IV SCH (09:00)
[2019-11-19] MEDS: ONDANSETRON 4 MG/2 ML VIAL IVP PRN (09:11)
[2019-11-19] MEDS: CEFEPIME 1 GM in SODIUM CHLORIDE 0.9% MINIBAG 100 ML IV SCH ×2 (09:11→16:48)
[2019-11-19] MEDS: SODIUM CHLORIDE FLUSH 0.9% 10 ML SYRINGE IVP SCH ×3 (09:11→23:49)
[2019-11-19] MEDS: MORPHINE 2 MG/ML CARPUJECT IVP PRN ×3 (09:11→18:18)
[2019-11-19] MEDS: FERROUS GLUCONATE 324 MG TABLET PO SCH (13:26)
[2019-11-19] MEDS ORDERED: BUTALB/ACETAM/CAFF 50/325/40MG TABLET PO PRN (14:21)
--- NOTE | 2019-11-19 16:15 | PROVIDER PROGRESS NOTE ---
Assessment/Plan - Problem List (1) E coli bacteremia Assessment/Plan: She still has a low-grade fever, and the white count has increased over the past 3 days from normal to 12 yesterday to 15 today. Will change her empiric IV antibiotics therefore to Cefepime, Since the Cipro may not be covering this E. coli. The empiric Flagyl for the colitis will be stopped. After this antibiotic change was discussed with the pharmacist, her E. coli biogram returned with sensitivities showing that this Ecoli is resistant to Cipro, but is sensitive to Cefepime. She will require 14 days of antibiotics total. Today will just be day 1 because she was resistant to the Cipro. We will start oral Florastor for probiotic treatment. The daughter told me that she often gets thrush when is put on antibiotics. Will start oral nystatin swish and swallow and a prn ointment for topical oral crease sores. (2) E. coli UTI Assessment/Plan: As above. (3) Acute colitis Assessment/Plan: White blood count increased to 12 yesterday and 15 today. Her Cipro and Flagyl antibiotics will be changed therefore, as in #1. Continue to treat the colitis with iv fluids and slow advancement of diet and pain meds as needed. (4) Dysmotility of stomach Assessment/Plan: This was found on last year's work-up with EGD and gastric emptying study, reported to me by Dr. Noguera. This may be related to her Sjogren's syndrome in terms of significant dryness and autonomic problems. Will continue with daily tablespoon of mineral oil, as advised by Dr. Noguera. This may also be adding to her poor appetite. The daughter who I spoke to it with at bedside today told me that she has been on mirtazapine which helped the anorexia. Continue gentle IV hydration, until she has improvement in p.o. intake. We will resume mirtazapine (5) Anemia, iron deficiency Qualifiers: Iron deficiency anemia type: unspecified iron deficiency Qualified Code(s): D50.9 - Iron deficiency anemia, unspecified Assessment/Plan: We will start oral iron replacement, now that she has had a BM, watching for worsening constipation. (6) Oral thrush Assessment/Plan: The daughter told me that she often gets thrush when is put on antibiotics. This also fits the picture of Sjogren's, with no lubrication of the mouth allowing for overgrowth of organisms such as yeast. Will start oral nystatin swish and swallow and a prn ointment for topical oral crease sores. (7) Hx of Sjogren's disease Assessment/Plan: Today the daughter, visiting from [place], was at bedside and I spoke with her at length about the patient's current status and also got past history information. She does require eyedrops for lubrication, no medications for Raynaud's phen omena, which she gets. (8) Urinary retention Assessment/Plan: Chronic and presumably also from her Sjogren's. He needs to self-cath herself at home for years. The patient herself requested a Pollard since there is pain with moving onto a bedpan or to the bedside commode. (9) Malnutrition Assessment/Plan: Patient had a complete aversion to food, possibly because of her chronic dysmotility. She was started on mirtazapine 1 month ago with good results. Will off for high-calorie supplement with meals. We will start mirtazapine. 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 The patient has had this since the age of 51, per the daughter. (11) Large bowel obstruction Assessment/Plan: Her presumed pseudoobstruction has resolved, there is been a BM last night and today. - Current Meds Current Meds: Current Medications Generic Name Dose Route Start Last Admin Trade Name Freq PRN Reason Stop Dose Admin Acetaminophen 650 mg 11/16/19 17:17 11/19/19 13:24 Tylenol PO 650 mg Q4HR PRN Administration Pain 1 to 4 Enoxaparin Sodium 40 mg 11/17/19 09:00 11/19/19 08:07 Lovenox SUBQ 40 mg DAILY DORA Administration Ferrous Gluconate 324 mg 11/19/19 12:00 11/19/19 13:26 Fergon PO 324 mg DAILYWM DORA Administration Fluoxetine HCl 10 mg 11/18/19 09:00 11/19/19 08:07 Prozac PO 10 mg DAILY DORA Administration Metronidazole 500 mg in 100 mls @ 100 mls/hr 11/16/19 22:00 11/19/19 14:02 Flagyl 500 Mg/100 Ml IV 100 mls/hr Q8H DORA Administration Potassium Chloride/Dextrose/Sod Cl 1,000 mls @ 125 mls/hr 11/18/19 09:00 11/19/19 08:07 IV 125 mls/hr .Q8H DORA Administration Cefepime HCl 1 gm/ Sodium 100 mls @ 200 mls/hr 11/19/19 09:00 11/19/19 11:01 Chloride IV Infused Q8H DORA Infusion Morphine Sulfate 2 mg 11/19/19 08:02 11/19/19 13:24 Morphine (Carpuject) IVP 2 mg Q4HR PRN Administration Pain 8 to 10 Ondansetron HCl 4 mg 11/16/19 17:17 11/19/19 09:11 Zofran Inj IVP 4 mg Q6HR PRN Administration Nausea / Vomiting Pantoprazole Sodium 40 mg 11/16/19 18:00 11/19/19 05:54 Protonix IVP 40 mg QDAC DORA Administration Petrolatum 1 applic 11/18/19 12:23 11/18/19 13:25 Vaseline TOP 1 applic PRN PRN Administration Dry Lips Phenol/Menthol 2 sprays 11/18/19 12:23 11/18/19 13:25 Chloraseptic MM 2 sprays Q2HR PRN Administration Throat Pain Polyethylene Glycol 17 gm 11/18/19 21:00 11/19/19 08:06 Miralax PO 17 gm BID DORA Administration Sodium Chloride 10 ml 11/16/19 17:17 11/19/19 05:54 Normal Saline Flush 0.9% IVP 10 ml PRN PRN Administration NEEDED PER PROVIDER ORDERS Sodium Chloride 10 ml 11/17/19 01:00 11/19/19 09:11 Normal Saline Flush 0.9% IVP 10 ml 0100,0900,1700 DORA Administration Sumatriptan Succinate 50 mg 11/18/19 10:49 11/19/19 01:28 Imitrex PO 50 mg DAILY PRN Administration MIGRAINE - Lab Result Fish Bone Diagrams: 11/19/19 05:05 11/19/19 05:05 - Additional Planning My Orders: My Active Orders 11/19/19 Evaluate and Treat OT [OT] Routine Evaluate and Treat PT [PT] Routine 11/19/19 08:02 Morphine Inj (Carpuject) [Morphine (Carpuject)] 2 mg IVP Q4HR PRN 11/19/19 09:00 Cefepime 1 gm Sodium Chloride 0.9% Minibag [Normal Saline 0.9% Minibag] 100 ml IV Q8H 11/19/19 12:00 Ferrous Gluconate [Fergon] 324 mg PO DAILYWM 11/19/19 14:21 Butalb/Acetam/Caff 50/325/40 [Fioricet] 1 tab PO Q6H PRN 11/19/19 17:00 Nystatin [Mycostatin] 5 ml PO QID 11/19/19 21:00 Mirtazapine [Remeron] 7.5 mg PO QPM 11/20/19 05:00 BMP - BASIC METABOLIC PANEL [CHEM] DAILYLAB CBC - COMP BLD CT W/AUTO DIFF [HEME] DAILYLAB 11/20/19 09:00 Calcium Carb (Oyster Shell) [Oysco-500] 500 mg PO DAILY Cyanocobalamin [Vitamin B-12] 1,000 mcg PO DAILY Multivitamin [Theragran] 1 tab PO DAILY 11/20/19 17:00 Lactobacillus Rhamnosus GG [Culturelle] 1 cap PO DAILY 11/21/19 05:00 BMP - BASIC METABOLIC PANEL [CHEM] DAILYLAB CBC - COMP BLD CT W/AUTO DIFF [HEME] DAILYLAB 11/22/19 05:00 BMP - BASIC METABOLIC PANEL [CHEM] DAILYLAB CBC - COMP BLD CT W/AUTO DIFF [HEME] DAILYLAB Subjective - Subjective Patient Reports: Feeling Better (No further migraine headache like she had for the last 2 mornings, Imitrex is been successful. She still has no appetite.), Pain (Mouth has 3 sores ands is "burning".) Objective Vital Signs: Vital Signs - 24 hr 11/18/19 11/19/19 11/19/19 20:14 00:11 05:12 Temperature 36.8 C 36.7 C 37.9 C H Heart Rate [ 113 H 121 H Monitoring electrodes] Heart Rate [ 108 H Radial] Heart Rate [ Supine] Respiratory 20 16 20 Rate Blood Pressure 103/52 L 94/44 L 122/52 L [Right Brachial artery] Blood Pressure [Supine] O2 Saturation 94 92 94 0711/19/19 11/19/19 08:31 11:59 14:00 Temperature 37.0 C 36.8 C Heart Rate [ Monitoring electrodes] Heart Rate [ 110 H 98 Radial] Heart Rate [ 117 H Supine] Respiratory 18 17 Rate Blood Pressure 112/54 L 114/56 L [Right Brachial artery] Blood Pressure 101/58 L [Supine] O2 Saturation 95 96 11/19/19 15:41 Temperature 37.0 C Heart Rate [ Monitoring electrodes] Heart Rate [ 98 Radial] Heart Rate [ Supine] Respiratory 20 Rate Blood Pressure 117/58 L [Right Brachial artery] Blood Pressure [Supine] O2 Saturation 96 Oxygen O2 Source Nasal cannula I&O (Last 24 Hrs): Intake and Output Totals x24h 11/17/19 11/18/19 11/19/19 23:59 23:59 23:59 Intake Total 3460.834 4420.250 1796.250 Output Total 700 1950 700 Balance 2760.834 2470.250 1096.250 General: Alert, Oriented x3, Other (Cachectic) HEENT: Mucous membr. moist/pink, Other (Red fissures at sides of mouth.) Neuro: Alert, Non Focal, Other (Lower jaw has constant tremor) Cardiovascular: Regular rate Respiratory: No respiratory distress Abdomen: Soft, Other (Not distended, less tender) Extremities: No edema - Results Results: Laboratory Results WBC 15.6 x10^3/uL (4.8-10.8) H 11/19/19 05:05 RBC 3.52 10^6/uL (4.20-5.40) L 11/19/19 05:05 Hgb 9.1 g/dL (12.0-16.0) L 11/19/19 05:05 Hct 30.1 % (37.0-47.0) L 11/19/19 05:05 MCV 85.5 fL (81.0-99.0) 11/19/19 05:05 MCH 25.9 pg (27.0-31.0) L 11/19/19 05:05 MCHC 30.2 g/dL (32.0-36.0) L 11/19/19 05:05 RDW 21.8 % (12.0-15.0) H 11/19/19 05:05 Plt Count 321 10^3/uL (130-450) 11/19/19 05:05 MPV 9.1 fL (7.9-10.8) 11/19/19 05:05 Neut # (Auto) 13.1 10^3/uL (1.5-6.6) H 11/19/19 05:05 Lymph # (Auto) 1.3 10^3/uL (1.5-3.5) L 11/19/19 05:05 [place] # (Auto) 0.9 10^3/uL (0.0-1.0) 11/19/19 05:05 Eos # (Auto) 0.0 10^3/uL (0.0-0.7) 11/19/19 05:05 Baso # (Auto) 0.0 10^3/uL (0.0-0.1) 11/19/19 05:05 Absolute Nucleated RBC 0.00 x10^3/uL 11/19/19 05:05 Total Counted 100 11/18/19 05:00 Band Neuts % (Manual) 13 % (0-10) H 11/18/19 05:00 Abnorm Lymph % (Manual) 0 % 11/18/19 05:00 Nucleated RBC % 0.0 /100WBC 11/19/19 05:05 Neutrophils # (Manual) 11.8 10^3/uL (1.5-6.6) H 11/18/19 05:00 Lymphocytes # (Manual) 0.4 10^3/uL (1.5-3.5) L 11/18/19 05:00 Monocytes # (Manual) 0.5 10^3/uL (0.0-1.0) 11/18/19 05:00 Eosinophils # (Manual) 0.0 10^3/uL (0-0.7) 11/18/19 05:00 Basophils # (Manual) 0.0 10^3/uL (0-0.1) 11/18/19 05:00 Differential Comment MANUAL DIFFERENTIAL 11/18/19 05:00 Manual Slide Review Indicated 11/19/19 05:05 Platelet Estimate NORMAL (130-450,000) (NORMAL) 11/19/19 05:05 Platelet Morphology NORMAL APPEARANCE (NORMAL) 11/17/19 05:23 RBC Morph Micro Appear 1+ ANISOCYTOSIS (NORMAL) 1+ HYPOCHROMASIA (NORMAL) 1+ OVALOCYTES (NORMAL) 11/19/19 05:05 RBC Morph Micro Appear 1+ ANISOCYTOSIS (NORMAL) 1+ HYPOCHROMASIA (NORMAL) 1+ OVALOCYTES (NORMAL) 11/19/19 05:05 RBC Morph Micro Appear 1+ ANISOCYTOSIS (NORMAL) 1+ HYPOCHROMASIA (NORMAL) 1+ OVALOCYTES (NORMAL) 11/19/19 05:05 Sodium 134 mmol/L (135-145) L 11/19/19 05:05 Potassium 3.6 mmol/L (3.5-5.0) 11/19/19 05:05 Chloride 110 mmol/L (101-111) 11/19/19 05:05 Carbon Dioxide 18 mmol/L (21-32) L 11/19/19 05:05 Anion Gap 6.0 (6-13) 11/19/19 05:05 BUN 10 mg/dL (6-20) 11/19/19 05:05 Creatinine 0.6 mg/dL (0.4-1.0) 11/19/19 05:05 Estimated GFR (MDRD) 94 (>89) 11/19/19 05:05 Glucose 181 mg/dL (70-100) H 11/19/19 05:05 Lactic Acid 1.5 mmol/L (0.5-2.2) 11/16/19 15:10 Calcium 7.2 mg/dL (8.5-10.3) L 11/19/19 05:05 Phosphorus 1.4 mg/dL (2.5-4.6) L 11/19/19 05:05 Magnesium 2.0 mg/dL (1.7-2.8) 11/19/19 05:05 Iron 12 ug/dL (28-170) L 11/18/19 04:50 TIBC 260 ug/dL (250-450) 11/18/19 04:50 % Saturation 5 % (20-50) L 11/18/19 04:50 Transferrin 186 mg/dL (192-382) L 11/18/19 04:50 Ferritin 16.7 ng/mL (11.0-306.8) 11/17/19 05:23 Total Bilirubin 0.6 mg/dL (0.2-1.0) 11/16/19 15:10 AST 34 IU/L (10-42) 11/16/19 15:10 ALT 20 IU/L (10-60) 11/16/19 15:10 Alkaline Phosphatase 118 IU/L (42-121) 11/16/19 15:10 Total Protein 6.2 g/dL (6.7-8.2) L 11/16/19 15:10 Albumin 3.4 g/dL (3.2-5.5) 11/16/19 15:10 Globulin 2.8 g/dL (2.1-4.2) 11/16/19 15:10 Albumin/Globulin Ratio 1.2 (1.0-2.2) 11/16/19 15:10 Lipase 30 U/L (22-51) 11/16/19 15:10 Carcinoembryonic Ag 1.9 ng/mL 11/17/19 05:23 Urine Color LIGHT YELLOW 11/16/19 17:02 Urine Clarity HAZY (CLEAR) 11/16/19 17:02 Urine pH 5.0 PH (5.0-7.5) 11/16/19 17:02 Ur Specific [place] 1.025 (1.002-1.030) 11/16/19 17:02 Urine Protein NEGATIVE mg/dL (NEGATIVE) 11/16/19 17:02 Urine Glucose (UA) NEGATIVE mg/dL (NEGATIVE) 11/16/19 17:02 Urine Ketones TRACE mg/dL (NEGATIVE) 11/16/19 17:02 Urine Occult Blood TRACE-INTA (NEGATIVE) 11/16/19 17:02 Urine Nitrite POSITIVE (NEGATIVE) H 11/16/19 17:02 Urine Bilirubin NEGATIVE (NEGATIVE) 11/16/19 17:02 Urine Urobilinogen 0.2 (NORMAL) E.U./dL (NORMAL) 11/16/19 17:02 Ur Leukocyte Esterase NEGATIVE (NEGATIVE) 11/16/19 17:02 Urine RBC 0-5 /HPF (0-5) 11/16/19 17:02 Urine WBC 4-5 /HPF (0-5) 11/16/19 17:02 Ur Squamous Epith Cells FEW Squamous (<= Few) 11/16/19 17:02 Urine Bacteria Many /HPF (None Seen) H 11/16/19 17:02 Ur Microscopic Review INDICATED 11/16/19 17:02 Urine Culture Comments INDICATED 11/16/19 17:02 Nasal Screen MRSA (PCR) NEGATIVE (NEGATIVE) 11/19/19 10:45 Coronavirus (PCR) NEGATIVE 11/16/19 17:45 - Procedures Procedures: Procedures EXCISION OF DUODENUM, ENDO, DIAGN (12/31/18) EXCISION OF LOWER ESOPHAGUS, ENDO, DIAGN (12/31/18) EXCISION OF STOMACH, ENDO, DIAGN (12/31/18)
[2019-11-19] MEDS ORDERED: CARBOXYMETHYLCELLULOSE OPHTH DROPS EACHEYE PRN (16:23)
[2019-11-19] MEDS: NYSTATIN 500000 UNITS/5 ML UDC PO SCH ×2 (16:46→21:26)
[2019-11-19] MEDS: PHENOL THROAT SPRAY 177 ML MM PRN (19:45)
[2019-11-19] MEDS: MIRTAZAPINE 15 MG TABLET PO SCH (21:21)
[2019-11-20] MEDS: CEFEPIME 1 GM in SODIUM CHLORIDE 0.9% MINIBAG 100 ML IV SCH ×3 (00:30→16:56)
[2019-11-20] MEDS: ACETAMINOPHEN 325 MG TABLET PO PRN ×3 (01:06→13:35)
[2019-11-20] MEDS: MORPHINE 2 MG/ML CARPUJECT IVP PRN ×4 (03:08→19:07)
[2019-11-20] MEDS: D5NS W/20 MEQ KCL 1,000 ML IV SCH ×3 (04:03→21:36)
[2019-11-20 05:05] LABS: BASOPHILS % (AUTO) 0.3 %; EOSINOPHILS # (AUTO) 0.1 10^3/uL (0.0-0.7); EOSINOPHILS % (AUTO) 0.6 %; HGB - HEMOGLOBIN 8.4 g/dL (12.0-16.0); LYMPHOCYTES # (AUTO) 1.2 10^3/uL (1.5-3.5); MEAN CORPUSCULAR HEMOGLOBIN 25.6 pg (27.0-31.0); MEAN CORPUSCULAR HGB CONC 30.9 g/dL (32.0-36.0); MEAN CORPUSCULAR VOLUME 82.9 fL (81.0-99.0); MEAN PLATELET VOLUME 9.2 fL (7.9-10.8); MONOCYTES # (AUTO) 0.7 10^3/uL (0.0-1.0); MONOCYTES % (AUTO) 5.4 %; NEUTROPHILS # (AUTO) 11.4 10^3/uL (1.5-6.6); NEUTROPHILS % (AUTO) 83.6 %; PLT - PLATELET COUNT 325 10^3/uL (130-450); RED BLOOD COUNT 3.28 10^6/uL (4.20-5.40); RED CELL DISTRIBUTION WIDTH 21.8 % (12.0-15.0); WHITE BLOOD COUNT 13.6 x10^3/uL (4.8-10.8)
[2019-11-20 05:13] LABS: CALCIUM 7.4 mg/dL (8.5-10.3); CREATININE 0.5 mg/dL (0.4-1.0)
[2019-11-20 05:28] LABS: PLATELET MORPHOLOGY NORMAL APPEARANCE (NORMAL)
[2019-11-20 05:29] LABS: PLATELET ESTIMATE, MANUAL NORMAL (130-450,000) (NORMAL)
[2019-11-20] MEDS: metroNIDAZOLE 500 MG/100 ML 500 MG/100 ML BAG IV SCH ×3 (06:39→22:42)
[2019-11-20] MEDS: PANTOPRAZOLE 40 MG VIAL IVP SCH (06:40)
[2019-11-20] MEDS ORDERED: FERROUS GLUCONATE 240 MG PO SCH (09:00)
[2019-11-20] MEDS: NYSTATIN 500000 UNITS/5 ML UDC PO SCH ×4 (09:05→20:42)
[2019-11-20] MEDS: ENOXAPARIN 40 MG/0.4 ML SYRINGE SUBQ SCH (09:05)
[2019-11-20] MEDS: polyethylene glycoL 3350 17 GM PACKET PO SCH ×2 (09:05→20:32)
[2019-11-20] MEDS: FERROUS GLUCONATE 324 MG TABLET PO SCH (09:06)
[2019-11-20] MEDS: MULTIVITAMIN TABLET PO SCH (09:06)
[2019-11-20] MEDS: CALCIUM CARB (OYSTER SHELL) 500 MG TABLET PO SCH (09:06)
[2019-11-20] MEDS: CYANOCOBALAMIN 500 MCG TABLET PO SCH (09:06)
[2019-11-20] MEDS: FLUoxetine 10 MG CAPSULE PO SCH (09:07)
[2019-11-20] MEDS: SODIUM CHLORIDE FLUSH 0.9% 10 ML SYRINGE IVP SCH ×2 (09:12→17:56)
--- NOTE | 2019-11-20 15:43 | PROVIDER PROGRESS NOTE ---
Assessment/Plan - Problem List (1) E coli bacteremia Assessment/Plan: Yesterday was the first day of IV Cefepime; she was on Cipro that this E. coli is resistant to. Plan to give her 2 to 4 days of IV antibiotics then changed to oral. She will need a 14-day total course. Probiotic of Florastor has been started. (2) E. coli UTI Assessment/Plan: Yesterday the patient requested a Pollard because of urinary retention which is chronic for her and currently having difficulty getting on bedpan. This treatment with IV antibiotics changing to p.o. antibiotics as described in #1. (3) Dysmotility of stomach Assessment/Plan: This was documented by EGD and gastric emptying study 1 year ago. This may also be associated with her Sjogren's syndrome. Continue with mineral oil 1 tablespoon daily to assist in lubricating the GI tract. We will also consider Reglan to improve peristalsis (as per Up-To-Date) (4) Anemia, iron deficiency Qualifiers: Iron deficiency anemia type: unspecified iron deficiency Qualified Code(s): D50.9 - Iron deficiency anemia, unspecified Assessment/Plan: Oral iron has been started for supplementing (5) Oral thrush Assessment/Plan: Oral nystatin swish and swallow has been started. (6) Hx of Sjogren's disease Assessment/Plan: As per history. She does get rainouts phenomenon at the daughter told me yesterday but is not on vasodilator because of her low blood pressure. (7) Urinary retention Assessment/Plan: This is a chronic problem and she needs to self cath when she is at home. Yesterday she requested a Pollard because of pain trying to get on the bedpan while in her bed. (8) Malnutrition Qualifiers: Protein-calorie malnutrition severity: moderate Assessment/Plan: Registered dietitian evaluated her. She has some muscle wasting and has nutritional intake of less than 50% of recommended for 1 week and reduced functional capacity, she also has BMI of 19.8 which should be greater than 22 at her age. (9) Benign familial tremor Assessment/Plan: As per Hx (10) Large bowel obstruction Assessment/Plan: Resolved. She is having >1 BM/day as of several days. (11) Acute colitis Assessment/Plan: Resolved. - Current Meds Current Meds: Current Medications Generic Name Dose Route Start Last Admin Trade Name Freq PRN Reason Stop Dose Admin Acetaminophen 650 mg 11/16/19 17:17 11/20/19 13:35 Tylenol PO 650 mg Q4HR PRN Administration Pain 1 to 4 Calcium Carbonate/Glycine 500 mg 11/20/19 09:00 11/20/19 09:06 Oysco-500 PO 500 mg DAILY DORA Administration Cyanocobalamin 1,000 mcg 11/20/19 09:00 11/20/19 09:06 Vitamin B-12 PO 1,000 mcg DAILY DORA Administration Enoxaparin Sodium 40 mg 11/17/19 09:00 11/20/19 09:05 Lovenox SUBQ 40 mg DAILY DORA Administration Ferrous Gluconate 324 mg 11/19/19 12:00 11/20/19 09:06 Fergon PO 324 mg DAILYWM DORA Administration Fluoxetine HCl 10 mg 11/18/19 09:00 11/20/19 09:07 Prozac PO 10 mg DAILY DORA Administration Metronidazole 500 mg in 100 mls @ 100 mls/hr 11/16/19 22:00 11/20/19 14:00 Flagyl 500 Mg/100 Ml IV Infused Q8H DORA Infusion Potassium Chloride/Dextrose/Sod Cl 1,000 mls @ 125 mls/hr 11/18/19 09:00 11/20/19 12:54 IV 125 mls/hr .Q8H DORA Administration Cefepime HCl 1 gm/ Sodium 100 mls @ 200 mls/hr 11/19/19 09:00 11/20/19 09:57 Chloride IV Infused Q8H DORA Infusion Mirtazapine 7.5 mg 11/19/19 21:00 11/19/19 21:21 Remeron PO 7.5 mg QPM DORA Administration Morphine Sulfate 2 mg 11/19/19 08:02 11/20/19 09:07 Morphine (Carpuject) IVP 2 mg Q4HR PRN Administration Pain 8 to 10 Multivitamins 1 tab 11/20/19 09:00 11/20/19 09:06 Theragran PO 1 tab DAILY DORA Administration Nystatin 5 ml 11/19/19 17:00 11/20/19 12:54 Mycostatin PO 5 ml QID DORA Administration Ondansetron HCl 4 mg 11/16/19 17:17 07/16/20 09:11 Zofran Inj IVP 4 mg Q6HR PRN Administration Nausea / Vomiting Pantoprazole Sodium 40 mg 11/16/19 18:00 11/20/19 06:40 Protonix IVP 40 mg QDAC DORA Administration Petrolatum 1 applic 11/18/19 12:23 11/18/19 13:25 Vaseline TOP 1 applic PRN PRN Administration Dry Lips Phenol/Menthol 2 sprays 11/18/19 12:23 11/19/19 19:45 Chloraseptic MM 2 sprays Q2HR PRN Administration Throat Pain Polyethylene Glycol 17 gm 11/18/19 21:00 11/20/19 09:05 Miralax PO 17 gm BID DORA Administration Sodium Chloride 10 ml 11/16/19 17:17 11/19/19 05:54 Normal Saline Flush 0.9% IVP 10 ml PRN PRN Administration NEEDED PER PROVIDER ORDERS Sodium Chloride 10 ml 11/17/19 01:00 11/20/19 09:12 Normal Saline Flush 0.9% IVP Not Given 0100,0900,1700 DORA Sumatriptan Succinate 50 mg 11/18/19 10:49 11/19/19 01:28 Imitrex PO 50 mg DAILY PRN Administration MIGRAINE - Lab Result Fish Bone Diagrams: 11/20/19 04:40 11/20/19 04:40 - Additional Planning My Orders: My Active Orders 11/19/19 16:23 Carboxymethylcellulose 1% Opht [Refresh 1% Ophth Drops] 1 drops EACHEYE Q4HR PRN 11/19/19 16:38 Pollard Insertion [RC] QSHIFT 11/19/19 17:00 Nystatin [Mycostatin] 5 ml PO QID 11/19/19 21:00 Mirtazapine [Remeron] 7.5 mg PO QPM 11/20/19 09:00 Calcium Carb (Oyster Shell) [Oysco-500] 500 mg PO DAILY Cyanocobalamin [Vitamin B-12] 1,000 mcg PO DAILY Multivitamin [Theragran] 1 tab PO DAILY 11/20/19 17:00 Lactobacillus Rhamnosus GG [Culturelle] 1 cap PO DAILY 11/21/19 05:00 BMP - BASIC METABOLIC PANEL [CHEM] DAILYLAB CBC - COMP BLD CT W/AUTO DIFF [HEME] DAILYLAB 11/22/19 05:00 BMP - BASIC METABOLIC PANEL [CHEM] DAILYLAB CBC - COMP BLD CT W/AUTO DIFF [HEME] DAILYLAB Subjective - Subjective Patient Reports: Feeling Better, Other (Sleeping soundly, does not appear to be in distress) Objective Vital Signs: Vital Signs - 24 hr 11/19/19 11/19/19 11/19/19 15:41 20:34 23:53 Temperature 37.0 C 37.1 C 36.8 C Heart Rate [ 124 H Monitoring electrodes] Heart Rate [ 98 99 Radial] Heart Rate [ Sitting] Heart Rate [ Supine] Respiratory 20 22 18 Rate Blood Pressure 117/58 L 127/64 138/71 H [Right Brachial artery] Blood Pressure [Sitting] Blood Pressure [Supine] O2 Saturation 96 96 92 11/20/19 11/20/19 11/20/19 03:22 08:07 12:05 Temperature 37.0 C 36.9 C Heart Rate [ 121 H 116 H Monitoring electrodes] Heart Rate [ Radial] Heart Rate [ 113 H Sitting] Heart Rate [ 117 H Supine] Respiratory 18 20 Rate Blood Pressure 139/70 H 132/65 H [Right Brachial artery] Blood Pressure 115/63 [Sitting] Blood Pressure 101/58 L [Supine] O2 Saturation 93 98 11/20/19 11/20/19 13:00 13:36 Temperature 36.3 C L 36.8 C Heart Rate [ 110 H 112 H Monitoring electrodes] Heart Rate [ Radial] Heart Rate [ Sitting] Heart Rate [ Supine] Respiratory 18 20 Rate Blood Pressure 115/63 137/62 H [Right Brachial artery] Blood Pressure [Sitting] Blood Pressure [Supine] O2 Saturation 98 97 Oxygen O2 Source Nasal cannula I&O (Last 24 Hrs): Intake and Output Totals x24h 11/18/19 11/19/19 11/20/19 23:59 23:59 23:59 Intake Total 4420.250 4019.167 2297.083 Output Total 1950 1000 775 Balance 2470.250 3019.167 1522.083 General: Other (Sleeping) HEENT: Mucous membr. moist/pink Neck: Supple Neuro: Other (Tremor when awake) Cardiovascular: Regular rate Respiratory: No respiratory distress Abdomen: Soft Extremities: No edema - Results Results: Laboratory Results WBC 13.6 x10^3/uL (4.8-10.8) H 11/20/19 04:40 RBC 3.28 10^6/uL (4.20-5.40) L 11/20/19 04:40 Hgb 8.4 g/dL (12.0-16.0) L 11/20/19 04:40 Hct 27.2 % (37.0-47.0) L 11/20/19 04:40 MCV 82.9 fL (81.0-99.0) 11/20/19 04:40 MCH 25.6 pg (27.0-31.0) L 11/20/19 04:40 MCHC 30.9 g/dL (32.0-36.0) L 11/20/19 04:40 RDW 21.8 % (12.0-15.0) H 11/20/19 04:40 Plt Count 325 10^3/uL (130-450) 11/20/19 04:40 MPV 9.2 fL (7.9-10.8) 11/20/19 04:40 Neut # (Auto) 11.4 10^3/uL (1.5-6.6) H 11/20/19 04:40 Lymph # (Auto) 1.2 10^3/uL (1.5-3.5) L 11/20/19 04:40 [place] # (Auto) 0.7 10^3/uL (0.0-1.0) 11/20/19 04:40 Eos # (Auto) 0.1 10^3/uL (0.0-0.7) 11/20/19 04:40 Baso # (Auto) 0.0 10^3/uL (0.0-0.1) 11/20/19 04:40 Absolute Nucleated RBC 0.00 x10^3/uL 11/20/19 04:40 Total Counted 100 11/18/19 05:00 Band Neuts % (Manual) 13 % (0-10) H 11/18/19 05:00 Abnorm Lymph % (Manual) 0 % 11/18/19 05:00 Nucleated RBC % 0.0 /100WBC 11/20/19 04:40 Neutrophils # (Manual) 11.8 10^3/uL (1.5-6.6) H 11/18/19 05:00 Lymphocytes # (Manual) 0.4 10^3/uL (1.5-3.5) L 11/18/19 05:00 Monocytes # (Manual) 0.5 10^3/uL (0.0-1.0) 11/18/19 05:00 Eosinophils # (Manual) 0.0 10^3/uL (0-0.7) 11/18/19 05:00 Basophils # (Manual) 0.0 10^3/uL (0-0.1) 11/18/19 05:00 Differential Comment MANUAL DIFFERENTIAL 11/18/19 05:00 Manual Slide Review Indicated 11/20/19 04:40 Platelet Estimate NORMAL (130-450,000) (NORMAL) 11/20/19 04:40 Platelet Morphology NORMAL APPEARANCE (NORMAL) 11/20/19 04:40 RBC Morph Micro Appear 1+ HYPOCHROMASIA (NORMAL) 1+ OVALOCYTES (NORMAL) 1+ ANISOCYTOSIS (NORMAL) 11/20/19 04:40 RBC Morph Micro Appear 1+ HYPOCHROMASIA (NORMAL) 1+ OVALOCYTES (NORMAL) 1+ ANISOCYTOSIS (NORMAL) 11/20/19 04:40 RBC Morph Micro Appear 1+ HYPOCHROMASIA (NORMAL) 1+ OVALOCYTES (NORMAL) 1+ ANISOCYTOSIS (NORMAL) 11/20/19 04:40 Sodium 135 mmol/L (135-145) 11/20/19 04:40 Potassium 4.0 mmol/L (3.5-5.0) 11/20/19 04:40 Chloride 112 mmol/L (101-111) H 11/20/19 04:40 Carbon Dioxide 17 mmol/L (21-32) L 11/20/19 04:40 Anion Gap 6.0 (6-13) 11/20/19 04:40 BUN 13 mg/dL (6-20) 11/20/19 04:40 Creatinine 0.5 mg/dL (0.4-1.0) 11/20/19 04:40 Estimated GFR (MDRD) 116 (>89) 11/20/19 04:40 Glucose 159 mg/dL (70-100) H 11/20/19 04:40 Lactic Acid 1.5 mmol/L (0.5-2.2) 11/16/19 15:10 Calcium 7.4 mg/dL (8.5-10.3) L 11/20/19 04:40 Phosphorus 1.4 mg/dL (2.5-4.6) L 11/19/19 05:05 Magnesium 2.0 mg/dL (1.7-2.8) 11/19/19 05:05 Iron 12 ug/dL (28-170) L 11/18/19 04:50 TIBC 260 ug/dL (250-450) 11/18/19 04:50 % Saturation 5 % (20-50) L 11/18/19 04:50 Transferrin 186 mg/dL (192-382) L 11/18/19 04:50 Ferritin 16.7 ng/mL (11.0-306.8) 11/17/19 05:23 Total Bilirubin 0.6 mg/dL (0.2-1.0) 11/16/19 15:10 AST 34 IU/L (10-42) 11/16/19 15:10 ALT 20 IU/L (10-60) 11/16/19 15:10 Alkaline Phosphatase 118 IU/L (42-121) 11/16/19 15:10 Total Protein 6.2 g/dL (6.7-8.2) L 11/16/19 15:10 Albumin 3.4 g/dL (3.2-5.5) 11/16/19 15:10 Globulin 2.8 g/dL (2.1-4.2) 11/16/19 15:10 Albumin/Globulin Ratio 1.2 (1.0-2.2) 11/16/19 15:10 Lipase 30 U/L (22-51) 11/16/19 15:10 Carcinoembryonic Ag 1.9 ng/mL 11/17/19 05:23 Urine Color LIGHT YELLOW 11/16/19 17:02 Urine Clarity HAZY (CLEAR) 11/16/19 17:02 Urine pH 5.0 PH (5.0-7.5) 11/16/19 17:02 Ur Specific [place] 1.025 (1.002-1.030) 11/16/19 17:02 Urine Protein NEGATIVE mg/dL (NEGATIVE) 11/16/19 17:02 Urine Glucose (UA) NEGATIVE mg/dL (NEGATIVE) 11/16/19 17:02 Urine Ketones TRACE mg/dL (NEGATIVE) 11/16/19 17:02 Urine Occult Blood TRACE-INTA (NEGATIVE) 11/16/19 17:02 Urine Nitrite POSITIVE (NEGATIVE) H 11/16/19 17:02 Urine Bilirubin NEGATIVE (NEGATIVE) 11/16/19 17:02 Urine Urobilinogen 0.2 (NORMAL) E.U./dL (NORMAL) 11/16/19 17:02 Ur Leukocyte Esterase NEGATIVE (NEGATIVE) 11/16/19 17:02 Urine RBC 0-5 /HPF (0-5) 11/16/19 17:02 Urine WBC 4-5 /HPF (0-5) 11/16/19 17:02 Ur Squamous Epith Cells FEW Squamous (<= Few) 11/16/19 17:02 Urine Bacteria Many /HPF (None Seen) H 11/16/19 17:02 Ur Microscopic Review INDICATED 11/16/19 17:02 Urine Culture Comments INDICATED 11/16/19 17:02 Nasal Screen MRSA (PCR) NEGATIVE (NEGATIVE) 11/19/19 10:45 Coronavirus (PCR) NEGATIVE 11/16/19 17:45 - Procedures Procedures: Procedures EXCISION OF DUODENUM, ENDO, DIAGN (12/31/18) EXCISION OF LOWER ESOPHAGUS, ENDO, DIAGN (12/31/18) EXCISION OF STOMACH, ENDO, DIAGN (12/31/18)
[2019-11-20] MEDS: LACTOBACILLUS RHAMNOSUS GG CAPSULE PO SCH (16:56)
[2019-11-20] MEDS: MIRTAZAPINE 15 MG TABLET PO SCH (20:31)
[2019-11-20] MEDS: SUMAtriptan 25 MG TABLET PO PRN (20:36)
[2019-11-21] MEDS ORDERED: SODIUM CHLORIDE 0.9% MINIBAG 100 ML IV ONE (00:38)
[2019-11-21] MEDS: CEFEPIME 1 GM in SODIUM CHLORIDE 0.9% MINIBAG 100 ML IV SCH ×2 (00:42→09:47)
[2019-11-21] MEDS: ACETAMINOPHEN 325 MG TABLET PO PRN ×4 (00:44→20:42)
[2019-11-21] MEDS: SODIUM CHLORIDE FLUSH 0.9% 10 ML SYRINGE IVP SCH ×3 (00:46→17:12)
[2019-11-21] MEDS: PHENOL THROAT SPRAY 177 ML MM PRN (00:47)
[2019-11-21] MEDS: NYSTATIN 500000 UNITS/5 ML UDC PO SCH ×5 (00:51→22:19)
[2019-11-21] MEDS: MORPHINE 2 MG/ML CARPUJECT IVP PRN ×2 (01:00→07:48)
[2019-11-21 05:33] LABS: BASOPHILS # (AUTO) 0.1 10^3/uL (0.0-0.1); BASOPHILS % (AUTO) 0.4 %; EOSINOPHILS # (AUTO) 0.3 10^3/uL (0.0-0.7); EOSINOPHILS % (AUTO) 1.9 %; HGB - HEMOGLOBIN 8.4 g/dL (12.0-16.0); LYMPHOCYTES # (AUTO) 1.8 10^3/uL (1.5-3.5); LYMPHOCYTES % (AUTO) 13.5 %; MEAN CORPUSCULAR HEMOGLOBIN 25.2 pg (27.0-31.0); MEAN CORPUSCULAR HGB CONC 28.3 g/dL (32.0-36.0); MEAN CORPUSCULAR VOLUME 89.2 fL (81.0-99.0); MEAN PLATELET VOLUME 9.6 fL (7.9-10.8); MONOCYTES # (AUTO) 0.8 10^3/uL (0.0-1.0); MONOCYTES % (AUTO) 5.8 %; NEUTROPHILS # (AUTO) 10.2 10^3/uL (1.5-6.6); NEUTROPHILS % (AUTO) 76.7 %; PLT - PLATELET COUNT 324 10^3/uL (130-450); RED BLOOD COUNT 3.33 10^6/uL (4.20-5.40); RED CELL DISTRIBUTION WIDTH 22.7 % (12.0-15.0); WHITE BLOOD COUNT 13.3 x10^3/uL (4.8-10.8)
[2019-11-21 05:43] LABS: CALCIUM 7.4 mg/dL (8.5-10.3); CREATININE 0.4 mg/dL (0.4-1.0)
[2019-11-21 05:57] LABS: PLATELET ESTIMATE, MANUAL NORMAL (130-450,000) (NORMAL); PLATELET MORPHOLOGY NORMAL APPEARANCE (NORMAL)
[2019-11-21] MEDS: metroNIDAZOLE 500 MG/100 ML 500 MG/100 ML BAG IV SCH (06:01)
[2019-11-21] MEDS: METOCLOPRAMIDE 10 MG TABLET PO SCH (06:59)
[2019-11-21] MEDS: D5NS W/20 MEQ KCL 1,000 ML IV SCH ×2 (08:59→09:01)
[2019-11-21] MEDS: CYANOCOBALAMIN 500 MCG TABLET PO SCH (09:00)
[2019-11-21] MEDS: LACTOBACILLUS RHAMNOSUS GG CAPSULE PO SCH (09:00)
[2019-11-21] MEDS: FERROUS GLUCONATE 324 MG TABLET PO SCH (09:00)
[2019-11-21] MEDS: CALCIUM CARB (OYSTER SHELL) 500 MG TABLET PO SCH (09:01)
[2019-11-21] MEDS: FLUoxetine 10 MG CAPSULE PO SCH (09:01)
[2019-11-21] MEDS: ENOXAPARIN 40 MG/0.4 ML SYRINGE SUBQ SCH (09:02)
[2019-11-21] MEDS: MULTIVITAMIN TABLET PO SCH (09:02)
[2019-11-21] MEDS: polyethylene glycoL 3350 17 GM PACKET PO SCH ×2 (09:02→20:44)
[2019-11-21] MEDS ORDERED: DEXTROSE 5%-0.9% NACL 1,000 ML IV SCH (11:00)
--- NOTE | 2019-11-21 11:06 | XRAY Report ---
PROCEDURE: Chest 1 View X-Ray INDICATIONS: Wheezing TECHNIQUE: One view of the chest was acquired. COMPARISON: 11/16/2019, 09/12/2017 FINDINGS: Surgical changes and devices: Dental implants can be seen. Lungs and pleura: There has been interval development of a right-sided pleural effusion. No pneumotho rax is seen. Interstitial prominence is seen throughout. Mediastinum: The aorta is prominent and tortuous. The cardiac contours are within normal limits. Bones and chest wall: No suspicious bony lesions. Age-appropriate degenerative changes are seen. Mild dextroconvex scoliotic curvature is seen. Overlying soft tissues appear unremarkable. IMPRESSION: Interval development of a right-sided pleural effusion and interstitial prominence. Please consider f luid overload. If it would be helpful for clinical management decision making, please consider a dedicated chest CT with IV contrast for further evaluation (assuming that there is no contraindication). Reviewed by: Som Velásquez MD on 11/21/2019 10:04 AM ANGIE Approved by: Som Velásquez MD on 11/21/2019 10:04 AM ANGIE Station ID: [id number]
[2019-11-21] MEDS: diltiaZEM 30 MG TABLET PO SCH ×2 (11:12→17:15)
[2019-11-21] MEDS ORDERED: LEVALBUTEROL 1.25 MG/3 ML NEB INH ONE (11:48)
--- NOTE | 2019-11-21 13:11 | PROVIDER PROGRESS NOTE ---
Assessment/Plan - Problem List (1) Wheezing Assessment/Plan: Chest x-ray was done and found fluid overload in the chest. This is likely the cause of the wheezing since there has been no wheezing before IV hydration this hospitalization. IV fluids were decreased to TKO. We will not give Lasix because we are trying to improve intravascular volume. We will wait for equilibration. We will also check a set of troponins to rule out KS. This was reviewed with the daughter at bedside today (2) Wide-complex tachycardia Assessment/Plan: After lunch, while the patient was napping, telemetry noted that she had a wide- complex tachycardia at a rate of approximately 200. I was called to see the patient. She was tachypneic but in no other significant distress. Blood pressure was 127/80. Oxygen saturation 95% on 2 L nasal cannula. EKG was obtained that shows sinus tachycardia at a rate of 117 with left IVCD, inferior Q waves, anterior Q waves and new lateral Q waves, new PVCs. Will order troponins. IV fluids were already decreased earlier this morning because of wheezing and today's chest x-ray that showed CHF. Her Echo done this hospitalization shows preserved LVEF therefore this could be diastolic heart failure. Will start beta-blockers, for rate control and they will help with her anxiety. (3) Mitral stenosis Assessment/Plan: This was the finding on echo done this admission and preserved LV contractility. This is likely the cause of the volume overload. This was reviewed with the daughter today at bedside (4) E coli bacteremia Assessment/Plan: Changed to cefepime that occurred 2 days ago, is resulted in improved clinical status, no fever, improving white count. We will switch to ceftriaxone IV which this E. coli is also sensitive to, which needs just once a day dosing, to give her a smaller IV volume load. If there is continued improvement on this, then we will switch to oral Keflex after 4 days of iv antibiotics, for a 14-day total course of antibiotics. (5) E. coli UTI Assessment/Plan: As above. This is the source of the bacteremia. She has recurrent UTIs and it is related to needing straight cath for urinary retention. She used to be on daily Septra suppression antibiotics, these were stopped about 1 month ago for fear of developing bacteria that have antibiotic resistances. There is no other type of suppressive therapy recommended (per UpToDate). (6) Dysmotility of stomach Assessment/Plan: She is already back on her mirtazapine to improve her diet. Reglan was tried today to aid in some peristalsis. Thus far there were no changes in her appetite after that. (7) Anemia, iron deficiency Qualifiers: Iron deficiency anemia type: unspecified iron deficiency Qualified Code(s): D50.9 - Iron deficiency anemia, unspecified Assessment/Plan: She is on iron replacement (8) Oral thrush Assessment/Plan: She is on liquid nystatin, the mouth pain is slowly improving. (9) Hx of Sjogren's disease Assessment/Plan: As per Hx (10) Urinary retention Assessment/Plan: She requested a Pollard catheter several days ago because she has urinary retention and self caths about 2 times a day for years. It was difficult to get on the bedpan because of her abdominal pain therefore the Pollard was requested. Will remove the Pollard starting tomorrow and promote ambulation. (11) Malnutrition Qualifiers: Protein-calorie malnutrition severity: moderate Assessment/Plan: She is already back on her mirtazapine to improve her diet. 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 Assessment/Plan: As per Hx (13) Large bowel obstruction Assessment/Plan: resolved (14) Acute colitis Assessment/Plan: resolved, antibiotics stopped, diet advanced - Current Meds Current Meds: Current Medications Generic Name Dose Route Start Last Admin Trade Name Freq PRN Reason Stop Dose Admin Acetaminophen 650 mg 11/16/19 17:17 11/21/19 11:36 Tylenol PO 650 mg Q4HR PRN Administration Pain 1 to 4 Calcium Carbonate/Glycine 500 mg 11/20/19 09:00 11/21/19 09:01 Oysco-500 PO 500 mg DAILY DORA Administration Cyanocobalamin 1,000 mcg 11/20/19 09:00 11/21/19 09:00 Vitamin B-12 PO 1,000 mcg DAILY DORA Administration Diltiazem HCl 30 mg 11/21/19 10:00 11/21/19 11:12 Cardizem PO 30 mg Q6HR DORA Administration Enoxaparin Sodium 40 mg 11/17/19 09:00 11/21/19 09:02 Lovenox SUBQ 40 mg DAILY DORA Administration Ferrous Gluconate 324 mg 11/19/19 12:00 11/21/19 09:00 Fergon PO 324 mg DAILYWM DORA Administration Fluoxetine HCl 10 mg 11/18/19 09:00 11/21/19 09:01 Prozac PO 10 mg DAILY DORA Administration Dextrose/Sodium Chloride 1,000 mls @ 0 mls/hr 11/21/19 11:00 11/21/19 11:12 D5ns IV 20 mls/hr .Q0M DORA Administration TKO Lactobacillus Rhamnosus 1 cap 11/20/19 17:00 11/21/19 09:00 Culturelle PO 1 cap DAILY DORA Administration Metoclopramide HCl 10 mg 11/21/19 07:30 11/21/19 06:59 Reglan PO 10 mg 0730 DORA Administration Mirtazapine 7.5 mg 11/19/19 21:00 11/20/19 20:31 Remeron PO 7.5 mg QPM DORA Administration Morphine Sulfate 2 mg 11/20/19 17:47 11/21/19 07:48 Morphine (Carpuject) IVP 2 mg Q6HR PRN Administration Pain 8 to 10 Multivitamins 1 tab 11/20/19 09:00 11/21/19 09:02 Theragran PO 1 tab DAILY DORA Administration Nystatin 5 ml 11/21/19 08:30 11/21/19 12:33 Mycostatin PO 5 ml 0800,1200,1800,2300 DORA Administration Ondansetron HCl 4 mg 11/16/19 17:17 11/19/19 09:11 Zofran Inj IVP 4 mg Q6HR PRN Administration Nausea / Vomiting Petrolatum 1 applic 11/18/19 12:23 11/18/19 13:25 Vaseline TOP 1 applic PRN PRN Administration Dry Lips Phenol/Menthol 2 sprays 11/18/19 12:23 11/21/19 00:47 Chloraseptic MM 1 sprays Q2HR PRN Administration Throat Pain Polyethylene Glycol 17 gm 11/18/19 21:00 11/21/19 09:02 Miralax PO 17 gm BID DORA Administration Sodium Chloride 10 ml 11/16/19 17:17 11/19/19 05:54 Normal Saline Flush 0.9% IVP 10 ml PRN PRN Administration NEEDED PER PROVIDER ORDERS Sodium Chloride 10 ml 11/17/19 01:00 11/21/19 09:02 Normal Saline Flush 0.9% IVP Not Given 0100,0900,1700 [facility] Sumatriptan Succinate 50 mg 11/18/19 10:49 11/20/19 20:36 Imitrex PO 50 mg DAILY PRN Administration MIGRAINE - Lab Result Fish Bone Diagrams: 11/21/19 04:50 11/21/19 04:50 - EKG Results EKG Interpreted Independently: Yes EKG Findings: Sinus tachycardia, Left IVCD, inferior Q waves, anterior Q waves, new lateral Q waves. - Additional Planning My Orders: My Active Orders 11/20/19 17:00 Lactobacillus Rhamnosus GG [Culturelle] 1 cap PO DAILY 11/20/19 17:47 Morphine Inj (Carpuject) [Morphine (Carpuject)] 2 mg IVP Q6HR PRN 11/21/19 07:30 Metoclopramide [Reg[place]] [place] [address]/21/19 08:30 Nystatin [Mycostatin] 5 ml PO 0800,1200,1800,2300 11/21/19 10:00 diltiaZEM [Cardizem] 30 mg PO Q6HR 11/21/19 11:00 Dextrose 5%-0.9% NaCl [D5ns] 1,000 ml IV TKO 11/21/19 11:48 Nebulizer/MDI Tx. [RC] QID Resp Teach Nebulizer/MDI [RC] .ONCE 11/21/19 14:00 cefTRIAXone [Rocephin] 1 gm Sodium Chloride 0.9% Minibag [Normal Saline 0.9% Minibag] 100 ml IV DAILY 11/22/19 05:00 BMP - BASIC METABOLIC PANEL [CHEM] DAILYLAB CBC - COMP BLD CT W/AUTO DIFF [HEME] DAILYLAB Subjective - Subjective Patient Reports: Other (Anxious, worried about heart findings today) Objective Vital Signs: Vital Signs - 24 hr 11/20/19 11/20/19 11/20/19 13:36 16:02 18:44 Temperature 36.8 C 37.0 C 36.9 C Heart Rate Heart Rate [ 114 H Brachial] Heart Rate [ 112 H 114 H Monitoring electrodes] Respiratory 20 18 17 Rate Blood Pressure 137/62 H 127/68 111/59 L [Right Brachial artery] O2 Saturation 97 95 96 11/20/19 11/21/19 11/21/19 23:59 05:00 07:42 Temperature 37.0 C 37.0 C 37.3 C Heart Rate Heart Rate [ 112 H 115 H Brachial] Heart Rate [ 123 H Monitoring electrodes] Respiratory 18 18 18 Rate Blood Pressure 136/68 H 123/65 124/61 [Right Brachial artery] O2 Saturation 96 96 95 11/21/19 11/21/19 11/21/19 09:09 11:05 12:10 Temperature 37.1 C Heart Rate Heart Rate [ Brachial] Heart Rate [ 120 H 200 H Monitoring electrodes] Respiratory 22 22 23 Rate Blood Pressure 123/70 121/60 [Right Brachial artery] O2 Saturation 94 95 95 11/21/19 11/21/19 12:16 12:41 Temperature Heart Rate 120 H Heart Rate [ Brachial] Heart Rate [ 116 H Monitoring electrodes] Respiratory 26 H Rate Blood Pressure 116/65 [Right Brachial artery] O2 Saturation Oxygen O2 Source Nasal cannula I&O (Last 24 Hrs): Intake and Output Totals x24h 11/19/19 11/20/19 11/21/19 23:59 23:59 23:59 Intake Total 4019.167 4347.083 1872.583 Output Total 1000 1775 775 Balance 3019.167 2572.083 1097.583 General: Alert, Oriented x3 HEENT: Mucous membr. 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) - Results Results: Laboratory Results WBC 13.3 x10^3/uL (4.8-10.8) H 11/21/19 04:50 RBC 3.33 10^6/uL (4.20-5.40) L 11/21/19 04:50 Hgb 8.4 g/dL (12.0-16.0) L 11/21/19 04:50 Hct 29.7 % (37.0-47.0) L 11/21/19 04:50 MCV 89.2 fL (81.0-99.0) 11/21/19 04:50 MCH 25.2 pg (27.0-31.0) L 11/21/19 04:50 MCHC 28.3 g/dL (32.0-36.0) L 11/21/19 04:50 RDW 22.7 % (12.0-15.0) H 11/21/19 04:50 Plt Count 324 10^3/uL (130-450) 11/21/19 04:50 MPV 9.6 fL (7.9-10.8) 11/21/19 04:50 Neut # (Auto) 10.2 10^3/uL (1.5-6.6) H 11/21/19 04:50 Lymph # (Auto) 1.8 10^3/uL (1.5-3.5) 11/21/19 04:50 Warren # (Auto) 0.8 10^3/uL (0.0-1.0) 11/21/19 04:50 Eos # (Auto) 0.3 10^3/uL (0.0-0.7) 11/21/19 04:50 Baso # (Auto) 0.1 10^3/uL (0.0-0.1) 11/21/19 04:50 Absolute Nucleated RBC 0.00 x10^3/uL 11/21/19 04:50 Total Counted 100 11/18/19 05:00 Band Neuts % (Manual) 13 % (0-10) H 11/18/19 05:00 Abnorm Lymph % (Manual) 0 % 11/18/19 05:00 Nucleated RBC % 0.0 /100WBC 11/21/19 04:50 Neutrophils # (Manual) 11.8 10^3/uL (1.5-6.6) H 11/18/19 05:00 Lymphocytes # (Manual) 0.4 10^3/uL (1.5-3.5) L 11/18/19 05:00 Monocytes # (Manual) 0.5 10^3/uL (0.0-1.0) 11/18/19 05:00 Eosinophils # (Manual) 0.0 10^3/uL (0-0.7) 11/18/19 05:00 Basophils # (Manual) 0.0 10^3/uL (0-0.1) 11/18/19 05:00 Differential Comment MANUAL DIFFERENTIAL 11/18/19 05:00 Manual Slide Review Indicated 11/21/19 04:50 WBC Morphology NORMAL APPEARANCE (NORMAL) 11/21/19 04:50 Platelet Estimate NORMAL (130-450,000) (NORMAL) 11/21/19 04:50 Platelet Morphology NORMAL APPEARANCE (NORMAL) 11/21/19 04:50 RBC Morph Micro Appear 2+ ANISOCYTOSIS (NORMAL) 1+ HYPOCHROMASIA (NORMAL) 2+ JOHNATHON CELLS (NORMAL) 11/21/19 04:50 RBC Morph Micro Appear 2+ ANISOCYTOSIS (NORMAL) 1+ HYPOCHROMASIA (NORMAL) 2+ JOHNATHON CELLS (NORMAL) 11/21/19 04:50 RBC Morph Micro Appear 2+ ANISOCYTOSIS (NORMAL) 1+ HYPOCHROMASIA (NORMAL) 2+ JOHNATHON CELLS (NORMAL) 11/21/19 04:50 Sodium 135 mmol/L (135-145) 11/21/19 04:50 Potassium 4.3 mmol/L (3.5-5.0) 11/21/19 04:50 Chloride 112 mmol/L (101-111) H 11/21/19 04:50 Carbon Dioxide 19 mmol/L (21-32) L 11/21/19 04:50 Anion Gap 4.0 (6-13) L 11/21/19 04:50 BUN 13 mg/dL (6-20) 11/21/19 04:50 Creatinine 0.4 mg/dL (0.4-1.0) 11/21/19 04:50 Estimated GFR (MDRD) 151 (>89) 11/21/19 04:50 Glucose 140 mg/dL (70-100) H 11/21/19 04:50 Lactic Acid 1.5 mmol/L (0.5-2.2) 11/16/19 15:10 Calcium 7.4 mg/dL (8.5-10.3) L 11/21/19 04:50 Phosphorus 1.4 mg/dL (2.5-4.6) L 11/19/19 05:05 Magnesium 2.0 mg/dL (1.7-2.8) 11/19/19 05:05 Iron 12 ug/dL (28-170) L 11/18/19 04:50 TIBC 260 ug/dL (250-450) 11/18/19 04:50 % Saturation 5 % (20-50) L 11/18/19 04:50 Transferrin 186 mg/dL (192-382) L 11/18/19 04:50 Ferritin 16.7 ng/mL (11.0-306.8) 11/17/19 05:23 Total Bilirubin 0.6 mg/dL (0.2-1.0) 11/16/19 15:10 AST 34 IU/L (10-42) 11/16/19 15:10 ALT 20 IU/L (10-60) 11/16/19 15:10 Alkaline Phosphatase 118 IU/L (42-121) 11/16/19 15:10 Total Protein 6.2 g/dL (6.7-8.2) L 11/16/19 15:10 Albumin 3.4 g/dL (3.2-5.5) 11/16/19 15:10 Globulin 2.8 g/dL (2.1-4.2) 11/16/19 15:10 Albumin/Globulin Ratio 1.2 (1.0-2.2) 11/16/19 15:10 Lipase 30 U/L (22-51) 11/16/19 15:10 Carcinoembryonic Ag 1.9 ng/mL 11/17/19 05:23 TSH 4.98 uIU/mL (0.34-5.60) 11/21/19 04:50 Urine Color LIGHT YELLOW 11/16/19 17:02 Urine Clarity HAZY (CLEAR) 11/16/19 17:02 Urine pH 5.0 PH (5.0-7.5) 11/16/19 17:02 Ur Specific [place] 1.025 (1.002-1.030) 11/16/19 17:02 Urine Protein NEGATIVE mg/dL (NEGATIVE) 11/16/19 17:02 Urine Glucose (UA) NEGATIVE mg/dL (NEGATIVE) 11/16/19 17:02 Urine Ketones TRACE mg/dL (NEGATIVE) 11/16/19 17:02 Urine Occult Blood TRACE-INTA (NEGATIVE) 11/16/19 17:02 Urine Nitrite POSITIVE (NEGATIVE) H 11/16/19 17:02 Urine Bilirubin NEGATIVE (NEGATIVE) 11/16/19 17:02 Urine Urobilinogen 0.2 (NORMAL) E.U./dL (NORMAL) 11/16/19 17:02 Ur Leukocyte Esterase NEGATIVE (NEGATIVE) 11/16/19 17:02 Urine RBC 0-5 /HPF (0-5) 11/16/19 17:02 Urine WBC 4-5 /HPF (0-5) 11/16/19 17:02 Ur Squamous Epith Cells FEW Squamous (<= Few) 11/16/19 17:02 Urine Bacteria Many /HPF (None Seen) H 11/16/19 17:02 Ur Microscopic Review INDICATED 11/16/19 17:02 Urine Culture Comments INDICATED 11/16/19 17:02 Nasal Screen MRSA (PCR) NEGATIVE (NEGATIVE) 11/19/19 10:45 Coronavirus (PCR) NEGATIVE 11/16/19 17:45 - Procedures Procedures: Procedures EXCISION OF DUODENUM, ENDO, DIAGN (12/31/18) EXCISION OF LOWER ESOPHAGUS, ENDO, DIAGN (12/31/18) EXCISION OF STOMACH, ENDO, DIAGN (12/31/18)
[2019-11-21] MEDS: cefTRIAXone 1 GM in SODIUM CHLORIDE 0.9% MINIBAG 100 ML IV SCH (14:06)
[2019-11-21] MEDS ORDERED: METOPROLOL 5 MG/5 ML VIAL IVP STA (14:19)
[2019-11-21] MEDS: SODIUM CHLORIDE FLUSH 0.9% 10 ML SYRINGE IVP PRN (14:42)
[2019-11-21] MEDS: SUMAtriptan 25 MG TABLET PO PRN ×2 (15:12→22:58)
[2019-11-21] MEDS: METOPROLOL TARTRATE 25 MG TABLET PO SCH (20:42)
[2019-11-21] MEDS: MIRTAZAPINE 15 MG TABLET PO SCH (20:42)
[2019-11-22] MEDS: diltiaZEM 30 MG TABLET PO SCH ×4 (00:02→18:12)
[2019-11-22] MEDS: SODIUM CHLORIDE FLUSH 0.9% 10 ML SYRINGE IVP SCH ×3 (00:04→18:12)
[2019-11-22] MEDS: ACETAMINOPHEN 325 MG TABLET PO PRN ×3 (01:32→21:19)
[2019-11-22] MEDS: PHENOL THROAT SPRAY 177 ML MM PRN ×2 (01:37→09:05)
[2019-11-22] MEDS: MORPHINE 2 MG/ML CARPUJECT IVP PRN (02:45)
[2019-11-22 05:12] LABS: BASOPHILS % (AUTO) 0.3 %; EOSINOPHILS # (AUTO) 0.3 10^3/uL (0.0-0.7); EOSINOPHILS % (AUTO) 2.1 %; HGB - HEMOGLOBIN 8.2 g/dL (12.0-16.0); LYMPHOCYTES # (AUTO) 1.7 10^3/uL (1.5-3.5); LYMPHOCYTES % (AUTO) 13.7 %; MEAN CORPUSCULAR HEMOGLOBIN 25.5 pg (27.0-31.0); MEAN CORPUSCULAR HGB CONC 31.7 g/dL (32.0-36.0); MEAN CORPUSCULAR VOLUME 80.7 fL (81.0-99.0); MEAN PLATELET VOLUME 9.5 fL (7.9-10.8); MONOCYTES # (AUTO) 0.8 10^3/uL (0.0-1.0); MONOCYTES % (AUTO) 6.6 %; NEUTROPHILS # (AUTO) 9.4 10^3/uL (1.5-6.6); PLT - PLATELET COUNT 340 10^3/uL (130-450); RED BLOOD COUNT 3.21 10^6/uL (4.20-5.40); RED CELL DISTRIBUTION WIDTH 22.3 % (12.0-15.0); WHITE BLOOD COUNT 12.6 x10^3/uL (4.8-10.8)
[2019-11-22 05:28] LABS: CALCIUM 7.8 mg/dL (8.5-10.3); CREATININE 0.5 mg/dL (0.4-1.0)
[2019-11-22 05:43] LABS: PLATELET ESTIMATE, MANUAL NORMAL (130-450,000) (NORMAL); PLATELET MORPHOLOGY NORMAL APPEARANCE (NORMAL)
[2019-11-22] MEDS: METOCLOPRAMIDE 10 MG TABLET PO SCH (07:05)
--- NOTE | 2019-11-22 08:15 | PROVIDER PROGRESS NOTE ---
Assessment/Plan - Problem List (1) Atrial flutter, paroxysmal Assessment/Plan: Yesterday she had 2 episodes of wide-complex tachycardia, that broke spontaneously. EKG showed no new changes. Troponins were flat, ruling out for an KS. Her TSH is normal. Her P waves are very large on telemetry, and very evident during her atrial flutter; this adds to the appearance of a wide-complex tachycardia. Oral Cardizem every 6 hours and Metoprolol tartrate twice daily were started yesterday empirically. Aspirin will be added today (chads score is blank). We will titrate her meds for rate control using either Cardizem or metoprolol at low doses because of her "soft" blood pressure. The etiology of the atrial flutter is probably her mitral stenosis (newly diagnosed this admission by Echo), and having received many days of IV fluids creating chest congestion (2) Wheezing Assessment/Plan: Chest x-ray showed volume overload yesterday, her IV fluids were decreased from 125 cc an hour to TKO. Troponins were negative. EKG did not show ischemia. She needed supplemental oxygen starting yesterday. Lasix was not given yesterday, she was allowed to equilibrate, because she runs a "soft" blood pressure. We will stop fluids today, promote p.o. intake only. (3) Wide-complex tachycardia Assessment/Plan: Yesterday she had 2 episodes of wide-complex tachycardia, that broke spontaneously. EKG showed no new changes. Troponins were flat, ruling out for an KS. Her TSH is normal. Her P waves are very large on telemetry, and very evident during her atrial flutter; this adds to the appearance of a wide-complex tachycardia. (4) Mitral stenosis Qualifiers: Cardiac valve disease etiology: etiology unspecified Qualified Code(s): I05.0 - Rheumatic mitral stenosis Assessment/Plan: Mitral stenosis is newly diagnosed during this hospitalization by echo. This was discussed with the daughter at bedside. It is adding to the atrial flutter and the pulmonary congestion. It is not of adequate severity to require surgical intervention. She is too frail to have surgery and with this advanced age would not be planning for surgery. (5) E coli bacteremia Assessment/Plan: White blood count is responding once she was put on an antibiotic that her E. coli was sensitive to. We will plan 14 days total of antibiotics, 4 days IV, 10 days p.o. (6) E. coli UTI Assessment/Plan: As above. (7) Dysmotility of stomach Assessment/Plan: As per Hx Reglan qam was ordered to see if it would help her oral intake (8) Anemia, iron deficiency Qualifiers: Iron deficiency anemia type: unspecified iron deficiency Qualified Code(s): D50.9 - Iron deficiency anemia, unspecified Assessment/Plan: Globin has plateaued at about 8-8.5. Continue with daily iron. It is adding to constipation, however (9) Oral thrush Assessment/Plan: She is on nystatin swish and swallow every 6 hours. Her mouth pain is slowly decreasing and the cracks at the corners of her mouth have improved (10) Hx of Sjogren's disease Assessment/Plan: As per history. (11) Urinary retention Assessment/Plan: This is chronic for her. We will discontinue Pollard today to determine if she has the strength now to do the self cath twice a day as she has done for years (12) Malnutrition Qualifiers: Protein-calorie malnutrition severity: moderate Assessment/Plan: Reglan every morning has been started and her mirtazapine for improved appetite has been started. There is minimally better oral intake of calories and fluids over the past 3 days. 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 Assessment/Plan: As per Hx (14) Acute colitis Assessment/Plan: Resolved Flagyl stopped - Current Meds Current Meds: Current Medications Generic Name Dose Route Start Last Admin Trade Name Freq PRN Reason Stop Dose Admin Acetaminophen 650 mg 11/16/19 17:17 11/22/19 01:32 Tylenol PO 650 mg Q4HR PRN Administration Pain 1 to 4 Calcium Carbonate/Glycine 500 mg 11/20/19 09:00 11/21/19 09:01 Oysco-500 PO 500 mg DAILY DORA Administration Cyanocobalamin 1,000 mcg 11/20/19 09:00 11/21/19 09:00 Vitamin B-12 PO 1,000 mcg DAILY DORA Administration Diltiazem HCl 30 mg 11/21/19 10:00 11/22/19 06:17 Cardizem PO 30 mg Q6HR DORA Administration Enoxaparin Sodium 40 mg 11/17/19 09:00 11/21/19 09:02 Lovenox SUBQ 40 mg DAILY DORA Administration Ferrous Gluconate 324 mg 11/19/19 12:00 11/21/19 09:00 Fergon PO 324 mg DAILYWM DORA Administration Fluoxetine HCl 10 mg 11/18/19 09:00 11/21/19 09:01 Prozac PO 10 mg DAILY DORA Administration Dextrose/Sodium Chloride 1,000 mls @ 0 mls/hr 11/21/19 11:00 11/21/19 11:12 D5ns IV 20 mls/hr .Q0M DORA Administration TKO Ceftriaxone Sodium 1 gm/ 100 mls @ 200 mls/hr 11/21/19 14:00 11/21/19 14:40 Sodium Chloride IV Infused DAILY DORA Infusion Lactobacillus Rhamnosus 1 cap 11/20/19 17:00 11/21/19 09:00 Culturelle PO 1 cap DAILY DORA Administration Metoclopramide HCl 10 mg 11/21/19 07:30 11/22/19 07:05 Reglan PO 10 mg 0730 DORA Administration Metoprolol Tartrate 12.5 mg 11/21/19 21:00 11/21/19 20:42 Lopressor PO 12.5 mg BID DORA Administration Mirtazapine 7.5 mg 11/19/19 21:00 11/21/19 20:42 Remeron PO 7.5 mg QPM DORA Administration Morphine Sulfate 2 mg 11/20/19 17:47 11/22/19 02:45 Morphine (Carpuject) IVP 2 mg Q6HR PRN Administration Pain 8 to 10 Multivitamins 1 tab 11/20/19 09:00 11/21/19 09:02 Theragran PO 1 tab DAILY DORA Administration Nystatin 5 ml 11/21/19 08:30 11/21/19 22:19 Mycostatin PO Not Given 0800,1200,1800,2300 DORA Ondansetron HCl 4 mg 11/16/19 17:17 11/19/19 09:11 Zofran Inj IVP 4 mg Q6HR PRN Administration Nausea / Vomiting Petrolatum 1 applic 11/18/19 12:23 11/18/19 13:25 Vaseline TOP 1 applic PRN PRN Administration Dry Lips Phenol/Menthol 2 sprays 11/18/19 12:23 11/22/19 01:37 Chloraseptic MM 2 sprays Q2HR PRN Administration Throat Pain Polyethylene Glycol 17 gm 11/18/19 21:00 11/21/19 20:44 Miralax PO Not Given BID DORA Sodium Chloride 10 ml 11/16/19 17:17 11/21/19 14:42 Normal Saline Flush 0.9% IVP 10 ml PRN PRN Administration NEEDED PER PROVIDER ORDERS Sodium Chloride 10 ml 11/17/19 01:00 11/22/19 00:04 Normal Saline Flush 0.9% IVP Not Given 0100,0900,1700 DORA Sumatriptan Succinate 50 mg 11/18/19 10:49 11/21/19 22:58 Imitrex PO 50 mg DAILY PRN Administration MIGRAINE - Lab Result Fish Bone Diagrams: 11/22/19 04:45 11/22/19 08:38 - Additional Planning My Orders: My Active Orders 11/21/19 07:30 Metoclopramide [Reglan] [place] [address]/21/19 08:30 Nystatin [Mycostatin] 5 ml PO 0800,1200,1800,2300 11/21/19 10:00 diltiaZEM [Cardizem] 30 mg PO Q6HR 11/21/19 14:00 cefTRIAXone [Rocephin] 1 gm Sodium Chloride 0.9% Minibag [Normal Saline 0.9% M inibag] 100 ml IV DAILY 11/21/19 21:00 Metoprolol Tartrate [Lopressor] 12.5 mg PO BID 11/22/19 BMP - BASIC METABOLIC PANEL [CHEM] Routine 11/22/19 09:00 Aspirin EC [Ecotrin] 162 mg PO DAILY 11/23/19 05:00 BMP - BASIC METABOLIC PANEL [CHEM] DAILYLAB CBC - COMP BLD CT W/AUTO DIFF [HEME] DAILYLAB 11/24/19 05:00 BMP - BASIC METABOLIC PANEL [CHEM] DAILYLAB CBC - COMP BLD CT W/AUTO DIFF [HEME] DAILYLAB 11/25/19 05:00 BMP - BASIC METABOLIC PANEL [CHEM] DAILYLAB CBC - COMP BLD CT W/AUTO DIFF [HEME] DAILYLAB Subjective - Subjective Patient Reports: Feeling Better (She is much more animated and appears to be in no distress.), Other (Still has a poor appetite. [place] like she had more strength when working with physical therapy today.) Objective Vital Signs: Vital Signs - 24 hr 11/21/19 11/21/19 11/21/19 09:09 11:05 12:10 Temperature 37.1 C Heart Rate Heart Rate [ Brachial] Heart Rate [ 120 H 200 H Monitoring electrodes] Heart Rate [ Radial] Respiratory 22 22 23 Rate Blood Pressure Blood Pressure 123/70 121/60 [Right Brachial artery] O2 Saturation 94 95 95 11/21/19 11/21/19 11/21/19 12:16 12:41 14:40 Temperature Heart Rate 120 H Heart Rate [ Brachial] Heart Rate [ 116 H Monitoring electrodes] Heart Rate [ Radial] Respiratory 26 H Rate Blood Pressure 116/54 L Blood Pressure 116/65 [Right Brachial artery] O2 Saturation 11/21/19 11/21/19 11/21/19 14:46 14:50 14:55 Temperature Heart Rate Heart Rate [ Brachial] Heart Rate [ 97 97 99 Monitoring electrodes] Heart Rate [ Radial] Respiratory Rate Blood Pressure Blood Pressure 106/50 L 107/50 L 115/57 L [Right Brachial artery] O2 Saturation 11/21/19 11/21/19 11/21/19 15:12 15:53 19:19 Temperature 36.9 C 36.2 C L Heart Rate Heart Rate [ Brachial] Heart Rate [ 93 99 102 H Monitoring electrodes] Heart Rate [ Radial] Respiratory 16 18 Rate Blood Pressure Blood Pressure 111/56 L 110/52 L 113/54 L [Right Brachial artery] O2 Saturation 91 L 95 11/22/19 11/22/19 11/22/19 00:02 00:12 04:56 Temperature 36.8 C 36.8 C Heart Rate Heart Rate [ 85 87 Brachial] Heart Rate [ Monitoring electrodes] Heart Rate [ 88 Radial] Respiratory 16 16 Rate Blood Pressure 114/65 Blood Pressure 114/65 118/59 L [Right Brachial artery] O2 Saturation 94 94 11/22/19 11/22/19 06:17 07:39 Temperature 36.9 C Heart Rate Heart Rate [ 94 Brachial] Heart Rate [ Monitoring electrodes] Heart Rate [ Radial] Respiratory 14 Rate Blood Pressure 125/57 L Blood Pressure 132/57 H [Right Brachial artery] O2 Saturation 92 Oxygen O2 Source Room air I&O (Last 24 Hrs): Intake and Output Totals x24h 11/20/19 11/21/19 11/22/19 23:59 23:59 23:59 Intake Total 4347.083 1972.583 Output Total 1775 1425 1275 Balance 2622.083 547.583 -3148 General: Alert, Oriented x3 HEENT: Mucous membr. moist/pink, Other (Edentulous, dry tongue, wearing O2 by nasal cannula.) Neck: Supple, No JVD Neuro: Alert, Other (Lower jaw has resting tremor.) Cardiovascular: Regular rate, No murmurs Respiratory: No respiratory distress, Breath sounds nml - Results Results: Laboratory Results WBC 12.6 x10^3/uL (4.8-10.8) H 11/22/19 04:45 RBC 3.21 10^6/uL (4.20-5.40) L 11/22/19 04:45 Hgb 8.2 g/dL (12.0-16.0) L 11/22/19 04:45 Hct 25.9 % (37.0-47.0) L 11/22/19 04:45 MCV 80.7 fL (81.0-99.0) L 11/22/19 04:45 MCH 25.5 pg (27.0-31.0) L 11/22/19 04:45 MCHC 31.7 g/dL (32.0-36.0) L 11/22/19 04:45 RDW 22.3 % (12.0-15.0) H 11/22/19 04:45 Plt Count 340 10^3/uL (130-450) 11/22/19 04:45 MPV 9.5 fL (7.9-10.8) 11/22/19 04:45 Neut # (Auto) 9.4 10^3/uL (1.5-6.6) H 11/22/19 04:45 Lymph # (Auto) 1.7 10^3/uL (1.5-3.5) 11/22/19 04:45 [place] # (Auto) 0.8 10^3/uL (0.0-1.0) 11/22/19 04:45 Eos # (Auto) 0.3 10^3/uL (0.0-0.7) 11/22/19 04:45 Baso # (Auto) 0.0 10^3/uL (0.0-0.1) 11/22/19 04:45 Absolute Nucleated RBC 0.00 x10^3/uL 11/22/19 04:45 Total Counted 100 11/18/19 05:00 Band Neuts % (Manual) 13 % (0-10) H 11/18/19 05:00 Abnorm Lymph % (Manual) 0 % 11/18/19 05:00 Nucleated RBC % 0.0 /100WBC 11/22/19 04:45 Neutrophils # (Manual) 11.8 10^3/uL (1.5-6.6) H 11/18/19 05:00 Lymphocytes # (Manual) 0.4 10^3/uL (1.5-3.5) L 11/18/19 05:00 Monocytes # (Manual) 0.5 10^3/uL (0.0-1.0) 11/18/19 05:00 Eosinophils # (Manual) 0.0 10^3/uL (0-0.7) 11/18/19 05:00 Basophils # (Manual) 0.0 10^3/uL (0-0.1) 11/18/19 05:00 Differential Comment MANUAL DIFFERENTIAL 11/18/19 05:00 Manual Slide Review Indicated 11/22/19 04:45 WBC Morphology NORMAL APPEARANCE (NORMAL) 11/22/19 04:45 Platelet Estimate NORMAL (130-450,000) (NORMAL) 11/22/19 04:45 Platelet Morphology NORMAL APPEARANCE (NORMAL) 11/22/19 04:45 RBC Morph Micro Appear 2+ ANISOCYTOSIS (NORMAL) 1+ HYPOCHROMASIA (NORMAL) 11/22/19 04:45 RBC Morph Micro Appear 2+ ANISOCYTOSIS (NORMAL) 1+ HYPOCHROMASIA (NORMAL) 11/22/19 04:45 Sodium 138 mmol/L (135-145) 11/22/19 04:45 Potassium 4.0 mmol/L (3.5-5.0) 11/22/19 04:45 Chloride 112 mmol/L (101-111) H 11/22/19 04:45 Carbon Dioxide 21 mmol/L (21-32) 11/22/19 04:45 Anion Gap 5.0 (6-13) L 11/22/19 04:45 BUN 12 mg/dL (6-20) 11/22/19 04:45 Creatinine 0.5 mg/dL (0.4-1.0) 11/22/19 04:45 Estimated GFR (MDRD) 116 (>89) 11/22/19 04:45 Glucose 114 mg/dL (70-100) H 11/22/19 04:45 Lactic Acid 1.5 mmol/L (0.5-2.2) 11/16/19 15:10 Calcium 7.8 mg/dL (8.5-10.3) L 11/22/19 04:45 Phosphorus 1.4 mg/dL (2.5-4.6) L 11/19/19 05:05 Magnesium 2.0 mg/dL (1.7-2.8) 11/19/19 05:05 Iron 12 ug/dL (28-170) L 11/18/19 04:50 TIBC 260 ug/dL (250-450) 11/18/19 04:50 % Saturation 5 % (20-50) L 11/18/19 04:50 Transferrin 186 mg/dL (192-382) L 11/18/19 04:50 Ferritin 16.7 ng/mL (11.0-306.8) 11/17/19 05:23 Total Bilirubin 0.6 mg/dL (0.2-1.0) 11/16/19 15:10 AST 34 IU/L (10-42) 11/16/19 15:10 ALT 20 IU/L (10-60) 11/16/19 15:10 Alkaline Phosphatase 118 IU/L (42-121) 11/16/19 15:10 Troponin I High Sens 25.9 ng/L (2.3-14.8) H* 11/21/19 15:30 Total Protein 6.2 g/dL (6.7-8.2) L 11/16/19 15:10 Albumin 3.4 g/dL (3.2-5.5) 11/16/19 15:10 Globulin 2.8 g/dL (2.1-4.2) 11/16/19 15:10 Albumin/Globulin Ratio 1.2 (1.0-2.2) 11/16/19 15:10 Lipase 30 U/L (22-51) 11/16/19 15:10 Carcinoembryonic Ag 1.9 ng/mL 11/17/19 05:23 TSH 4.98 uIU/mL (0.34-5.60) 11/21/19 04:50 Urine Color LIGHT YELLOW 11/16/19 17:02 Urine Clarity HAZY (CLEAR) 11/16/19 17:02 Urine pH 5.0 PH (5.0-7.5) 11/16/19 17:02 Ur Specific [place] 1.025 (1.002-1.030) 11/16/19 17:02 Urine Protein NEGATIVE mg/dL (NEGATIVE) 11/16/19 17:02 Urine Glucose (UA) NEGATIVE mg/dL (NEGATIVE) 11/16/19 17:02 Urine Ketones TRACE mg/dL (NEGATIVE) 11/16/19 17:02 Urine Occult Blood TRACE-INTA (NEGATIVE) 11/16/19 17:02 Urine Nitrite POSITIVE (NEGATIVE) H 11/16/19 17:02 Urine Bilirubin NEGATIVE (NEGATIVE) 11/16/19 17:02 Urine Urobilinogen 0.2 (NORMAL) E.U./dL (NORMAL) 11/16/19 17:02 Ur Leukocyte Esterase NEGATIVE (NEGATIVE) 11/16/19 17:02 Urine RBC 0-5 /HPF (0-5) 11/16/19 17:02 Urine WBC 4-5 /HPF (0-5) 11/16/19 17:02 Ur Squamous Epith Cells FEW Squamous (<= Few) 11/16/19 17:02 Urine Bacteria Many /HPF (None Seen) H 11/16/19 17:02 Ur Microscopic Review INDICATED 11/16/19 17:02 Urine Culture Comments INDICATED 11/16/19 17:02 Nasal Screen MRSA (PCR) NEGATIVE (NEGATIVE) 11/19/19 10:45 Coronavirus (PCR) NEGATIVE 11/16/19 17:45 - Procedures Procedures: Procedures EXCISION OF DUODENUM, ENDO, DIAGN (12/31/18) EXCISION OF LOWER ESOPHAGUS, ENDO, DIAGN (12/31/18) EXCISION OF STOMACH, ENDO, DIAGN (12/31/18)
[2019-11-22] MEDS: LACTOBACILLUS RHAMNOSUS GG CAPSULE PO SCH (08:45)
[2019-11-22] MEDS: ENOXAPARIN 40 MG/0.4 ML SYRINGE SUBQ SCH (08:45)
[2019-11-22] MEDS: polyethylene glycoL 3350 17 GM PACKET PO SCH ×2 (08:45→21:17)
[2019-11-22] MEDS: FERROUS GLUCONATE 324 MG TABLET PO SCH (08:46)
[2019-11-22] MEDS: FLUoxetine 10 MG CAPSULE PO SCH (08:46)
[2019-11-22] MEDS: CALCIUM CARB (OYSTER SHELL) 500 MG TABLET PO SCH (08:46)
[2019-11-22] MEDS: ASPIRIN EC 81 MG TABLET PO SCH (08:46)
[2019-11-22] MEDS: MULTIVITAMIN TABLET PO SCH (08:46)
[2019-11-22] MEDS: NYSTATIN 500000 UNITS/5 ML UDC PO SCH ×4 (08:46→22:32)
[2019-11-22] MEDS: METOPROLOL TARTRATE 25 MG TABLET PO SCH ×2 (08:46→21:16)
[2019-11-22] MEDS: CYANOCOBALAMIN 500 MCG TABLET PO SCH (08:46)
[2019-11-22 08:56] LABS: CALCIUM 8.1 mg/dL (8.5-10.3); CREATININE 0.5 mg/dL (0.4-1.0)
[2019-11-22] MEDS: cefTRIAXone 1 GM in SODIUM CHLORIDE 0.9% MINIBAG 100 ML IV SCH (09:00)
[2019-11-22] MEDS: PETROLATUM WHITE 5 GM PACKET TOP PRN (09:05)
[2019-11-22] MEDS: SUMAtriptan 25 MG TABLET PO PRN (15:58)
[2019-11-22] MEDS: MIRTAZAPINE 15 MG TABLET PO SCH (21:16)
[2019-11-23] MEDS: SODIUM CHLORIDE FLUSH 0.9% 10 ML SYRINGE IVP SCH ×2 (00:12→10:09)
[2019-11-23] MEDS: diltiaZEM 30 MG TABLET PO SCH ×2 (00:12→06:17)
[2019-11-23 05:56] LABS: BASOPHILS % (AUTO) 0.3 %; EOSINOPHILS # (AUTO) 0.2 10^3/uL (0.0-0.7); EOSINOPHILS % (AUTO) 1.5 %; HGB - HEMOGLOBIN 8.4 g/dL (12.0-16.0); LYMPHOCYTES # (AUTO) 1.9 10^3/uL (1.5-3.5); LYMPHOCYTES % (AUTO) 16.8 %; MEAN CORPUSCULAR HEMOGLOBIN 25.4 pg (27.0-31.0); MEAN CORPUSCULAR HGB CONC 31.8 g/dL (32.0-36.0); MEAN CORPUSCULAR VOLUME 79.8 fL (81.0-99.0); MEAN PLATELET VOLUME 9.5 fL (7.9-10.8); MONOCYTES # (AUTO) 0.6 10^3/uL (0.0-1.0); MONOCYTES % (AUTO) 5.5 %; NEUTROPHILS # (AUTO) 8.3 10^3/uL (1.5-6.6); PLT - PLATELET COUNT 356 10^3/uL (130-450); RED BLOOD COUNT 3.31 10^6/uL (4.20-5.40); RED CELL DISTRIBUTION WIDTH 22.5 % (12.0-15.0); WHITE BLOOD COUNT 11.4 x10^3/uL (4.8-10.8)
[2019-11-23 06:07] LABS: CALCIUM 7.7 mg/dL (8.5-10.3); CREATININE 0.5 mg/dL (0.4-1.0)
[2019-11-23 06:22] LABS: PLATELET ESTIMATE, MANUAL NORMAL (130-450,000) (NORMAL); PLATELET MORPHOLOGY NORMAL APPEARANCE (NORMAL)
[2019-11-23] MEDS: METOCLOPRAMIDE 10 MG TABLET PO SCH (06:53)
[2019-11-23] MEDS: NYSTATIN 500000 UNITS/5 ML UDC PO SCH ×2 (06:54→13:52)
[2019-11-23] MEDS: polyethylene glycoL 3350 17 GM PACKET PO SCH (07:29)
[2019-11-23] MEDS ORDERED: POTASSIUM CHLORIDE 20 MEQ TABLET PO ONE (07:33)
[2019-11-23] MEDS: LACTOBACILLUS RHAMNOSUS GG CAPSULE PO SCH (10:08)
[2019-11-23] MEDS: FERROUS GLUCONATE 324 MG TABLET PO SCH (10:08)
[2019-11-23] MEDS: ASPIRIN EC 81 MG TABLET PO SCH (10:08)
[2019-11-23] MEDS: ENOXAPARIN 40 MG/0.4 ML SYRINGE SUBQ SCH (10:09)
[2019-11-23] MEDS: CYANOCOBALAMIN 500 MCG TABLET PO SCH (10:09)
[2019-11-23] MEDS: CALCIUM CARB (OYSTER SHELL) 500 MG TABLET PO SCH (10:09)
[2019-11-23] MEDS: MULTIVITAMIN TABLET PO SCH (10:09)
[2019-11-23] MEDS: FLUoxetine 10 MG CAPSULE PO SCH (10:09)
[2019-11-23] MEDS: ACETAMINOPHEN 325 MG TABLET PO PRN (10:20)
[2019-11-23] MEDS: PHENOL THROAT SPRAY 177 ML MM PRN (10:21)
--- NOTE | 2019-11-23 12:47 | Discharge Plan ---
Discharge Plan Problem Reviewed?: Yes Disposition: Home, Self Care Condition: Fair Prescriptions: Aspirin [Aspirin EC] 81 mg PO DAILY #30 tablet. diltiaZEM [Cardizem] 60 mg PO BID #60 tablet cefUROXime axetiL [Ceftin] 500 mg PO BID #21 tablet Lactobacillus Rhamnosus GG [Culturelle] 1 cap PO DAILY #10 capsule polyethylene glycoL 3350 [Miralax] 17 gm PO BID #60 packet Nystatin 500,000 unit PO TID #20 tablet Metoclopramide [Reglan] 10 mg PO 0730 #14 tablet Diet: Soft Activity Restrictions: Activity as Tolerated Shower Restrictions: No Driving Restrictions: Yes Assistance Devices: Walker Weight Bearing: Full Weight Health Concerns: You were hospitalized with an E coli urinary tract infection and the E coli bacteria got into your blood stream. You are being sent home to finish a course of Ceftin antibiotics with Probiotics. We also found that you have sudden intermittent atrial flutter caused by having mitral stenosis. You are on new medicine for heart rate control and should take a coated aspirin daily, to prevent a stroke. Due to your intestinal dysmotility and poor appetite, please stay well hydrated and also you need high protein foods for your malnutrition. Eat foods that do not give you gas (like beans). There is a new medication to promote motility, called Reglan, stay on this for several weeks only. There is a new medication for several more days of Nystatin lozenges for the thrush. Use other hard candy to promote saliva and keep your mouth moist. The new medications were all electronically sent to your [facility] pharmacy in [place]. Resume all your usual medications that you took before this hospitalization, except stop the Lovastatin for cholesterol, since you hardly eat a diet containing fat. Plan of Treatment: As above. Care Goals: Improvement in symptoms and stabilization are the goals. You should do your own physical therapy for strengthening: walk every day, use soup cans to do weight exercises with your arms. You were tested for needing home oxygen, and it is not needed. Your home exercises should also help promote good lung expansion. Assessment: Patient and daughter understand and are agreeable with the plan. Additional Instructions or Follow Up instructions: You should see your PCP for hospital follow-up in the next 1 to 2 weeks. If you have new or worsening symptoms, call your PCP for advice or come to the ER. No Smoking: If you smoke, Please STOP! Call for help. Follow-up with: Grady Jhaveri MD [Primary Care Provider] -
--- NOTE | 2019-11-23 13:08 | DISCHARGE SUMMARY ---
Discharge Summary Admit Date: 11/16/19 Discharge Date: 11/23/19 Discharging Provider: Dr Rocío Trinidad Primary Care Provider: Dr Grady Jhaveri Condition at Discharge: Fair Discharge Disposition: 01 Home, Self Care - [facility] History of Present Illness: From the admission H&P of Dr Elizabeth Beauchamp: Pt is an 89yo female brought to ED today by her daughter for worsening abdominal pain and fever. The pt has a history significant for bowel incontinence, urinary retention requiring self catheterization and has recurrent UTIs as well as chronic abdominal pain. Prior to this morning pt was able to perform ADLs with assistance from daughter to lift heavier items such as a jug of milk. New onset over past couple months of feeling "winded" while ambulating requiring her to hold on to furniture while walking. Local MD has prescribed PT to patient, appointment pending. This morning her pain was worse than usual making her too weak to get up and perform ADLs. Her daughter took her temp and found it to be 101.6F prompting the daughter to bring her to the ED. The patient reports feeling feverish and chills this morning, and describes her abdominal pain as "hurting with spikes". She utilized tylenol for her pain management with last known self-dosing at 1300 today. She recalls having a normal BM this morning, denies any blood in her stool or pain with defecation. Last consumed meal was half of her dinner last night, otherwise she has had decreased appetite and reports a 15lb weight loss since February 2019. Of note she does have a history of previous abdominal surgeries. 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 Her exam shows a cachectic elderly female with a resting tremor of the lower jaw, absent bowel tones in RUQ, LUQ and LLQ with hypoactive sounds in RLQ. Abdomen is diffusely tender to even light palpation, primarily in her mid abdomen. A landrum-systolic cardic murmur is auscultated during exam (however pt has no history of known cardiac problems). Abdomen and pelvis CT shows a large bowel functional obstruction vs ileus, with sigmoid colitis and stool impaction. Labs show hypokalemia, normal Lactic acid and the urine has indications of UTI with many bacteria and positive nitrites. - CONSULTS | PROCEDURES Consultations: Dr Enedelia Noguera, General Surgery - HOSPITAL COURSE Hospital Course: (1) E coli bacteremia She was started on empiric iv antibiotics using Cipro and Flagyl, for treating both the UTI and the colitis. The WBC was normal at 5.6 at admission and then started to increase >>7.4>> 12.7>> and peaked at 15.6 before improving. Her urine and blood grew E coli that was resistant to Cipro. The antibiotic for the UTI was changed to iv Ceftriaxone, which she received for 4 days, then was transitioned to oral Ceftin with plan for 14 days total of antibiotics, with 10 more days using Ceftin plus a probiotic. An Echo was done that showed no evidence of vegetations. Repeat blood cultures had no growth. (2) E. coli UTI As above. (3) Acute colitis She received iv Flagyl for several days, the pain subsided and a diet of clear liquids was eventually transitioned to a soft diet. (4) Oral thrush She reported getting Thrush whenever she is on antibiotics and she was put on Nystatin swish and swallow every 6 hours. Her mouth pain slowly decreased and the cracks at the corners of her mouth have improved. She was transitioned to take Nystatin lozenges for 1 more week. (5) Dysmotility of stomach A General Surgery consult was requested for evaluating the abdominal pain. Dr Enedelia Noguera, Gen Surgeon, knew this pt from last year and shared details of the history that were not known at the time of admission: the pt had Sjogren's syndrome and has dysmotility of the esophagus and stomach and has a hiatal hernia and has chronic abdominal pain and poor oral intake. The abdominal pain was felt to be due to the colitis and pseudo-obstruction. Bowel rest was ordered and eventually her diet was advanced. This patient's appetite was very poor and Nutrition consult recommended protein shakes for supplements. Her Mirtazipine dose of for appetite stimulation was resumed and daily morning Reglan was also tried (not beneficial). (6) Hx of Sjogren's disease As per history. (7) Urinary retention This is chronic for her. She needed a Pollard for several days when she was too weak to get on the bedpan. At discharge, she recovered the strength to do her self catheterizations twice a day as she has done for years. (8) Malnutrition Reglan every morning was tried (and was not beneficial) and her Mirtazapine was resumed for improved appetite. There was minimally better oral intake of calories and fluids over the final 3 days of hospitalization. She worked with Physical Therapy and required a walker for home use. (9) Anemia, iron deficiency Her hemoglobin was 10.3 at admission and with iv fluids and hemodilution it plateaued at about 8-8.5. She was continued on daily iron. (10) Wide-complex tachycardia At mid-hospitaliztion, she had 2 episodes of wide-complex tachycardia, that broke spontaneously. She was asymptomatic and BP was stable. An EKG showed no new changes. Troponins were flat, ruling out for an AK. Her TSH is normal. Her P waves were very large on telemetry, and very evident during these episodes of wide complex rhythms and she was diagnosed with atrial flutter. (11) Atrial flutter, paroxysmal Aspirin was started for a CHADS score of 1 (age> 75). She had several episodes of paroxysmal Aflutter and was started on Cardizem, titrated for rate control, since she runs "soft" blood pressures. The etiology of the atrial flutter was felt to be her mitral stenosis (newly diagnosed this admission by Echo), and having received many days of IV fluids creating chest congestion. (12) Wheezing After several days of iv fluids, she reported SOB, wheezing was audible and a chest x-ray showed volume overload. Her IV fluids were decreased as her oral intake improved. Lasix was not given, she was allowed to equilibrate, because she runs a "soft" blood pressure and needed the intravascular fluids. Troponins were negative. EKG did not show ischemia. She needed supplemental oxygen for several days. On the day of discharge, an exercise oximetry test was done and she did not require a home oxygen order. (13) Mitral stenosis An Echo was ordered due to the audible heart murmur at admission and to evaluate for endocarditis due to the presence of bacteremia. Mitral stenosis, moderate, was newly diagnosed during this hospitalization. This was discussed with the patient and daughter at bedside. It was likely adding to the paroxysms of atrial flutter and to the cause pulmonary congestion. It is not of high severity to require surgical intervention. 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 - ALLERGIES Allergies/Adverse Reactions: Allergies Allergy/AdvReac Type Severity Reaction Status Date / Time Penicillins Allergy Rash Verified 12/30/18 14:31 - MEDICATIONS Home Medications: Ambulatory Orders Medication Instructions Recorded Confirmed Calcium Carbonate/Vitamin D3 1 each PO DAILY 12/12/18 11/17/19 [Calcium 600-Vit D3 400 Tablet] Cyanocobalamin (Vitamin B-12) 1,000 mcg SL DAILY 12/12/18 11/17/19 [Vitamin B-12 (1000 mcg sublingual)] Flaxseed Oil 1,000 mg PO DAILY 12/12/18 11/17/19 Multivitamin [Theragran] 1 each PO DAILY 12/12/18 11/17/19 Ferrous Gluconate 240 mg PO DAILY #30 tablet 12/13/18 11/17/19 Omeprazole 40 mg PO BID #60 capsule. 12/31/18 11/17/19 Butalb/Acetaminophen/Caffeine 1 each PO Q6H PRN 11/17/19 11/17/19 [Fioricet 50-300-40 mg Capsule] FLUoxetine [PROzac] 10 mg PO DAILY 11/17/19 11/17/19 Mirtazapine 7.5 mg PO DAILY 11/17/19 11/17/19 Aspirin [Aspirin EC] 81 mg PO DAILY #30 tablet. 11/23/19 Lactobacillus Rhamnosus GG 1 cap PO DAILY #10 capsule 11/23/19 [Culturelle] Metoclopramide [Reglan] 10 mg PO 0730 #14 tablet 11/23/19 Nystatin 500,000 unit PO TID #20 tablet 11/23/19 SUMAtriptan [Imitrex] 50 mg PO DAILY PRN tablet 11/23/19 cefUROXime axetiL [Ceftin] 500 mg PO BID #21 tablet 11/23/19 diltiaZEM [Cardizem] 60 mg PO BID #60 tablet 11/23/19 polyethylene glycoL 3350 [Miralax] 17 gm PO BID #60 packet 11/23/19 - PHYSICAL EXAM AT DISCHARGE General Appearance: positive: No acute distress, Alert, Other (Thin, cachectic female) Eyes Bilateral: positive: Normal inspection, EOMI ENT: positive: ENT inspection nml, No signs of dehydration Neck: positive: Nml inspection Respiratory: positive: No respiratory distress, Breath sounds nml Cardiovascular: positive: Regular rate & rhythm, No murmur (distant heart sounds) Abdomen: positive: Non-tender, No distention Skin: positive: Pallor Extremities: positive: Non-tender, No pedal edema Neurologic/Psychiatric: positive: Oriented x3, Other (Resting tremor of lower jaw.) - LABS Result Diagrams: 11/23/19 05:43 11/23/19 05:43 - FOLLOW UP Follow Up: See PCP in 1-2 weeks for hospital follow-up, consider a Cardiology referral for evaluation and management of the paroxysmal Aflutter and the mitral stenosis. - TIME SPENT Time Spent in Discharge (Minutes): 55
[2019-11-23 15:55] VITALS: BP 111/56
== END 2019-11-23 16:30 | disposition home or self-care (01) | DRG 392 ==
LOC: ED 14:22 → MS2 17:17
PROVIDERS: ADMIT Internal Medicine; ATTEND Internal Medicine
PROC: 0T9B70Z Drainage of Bladder with Drainage Device, Via Natural or Artificial Opening (ICD-10-PCS; principal; 2019-11-19)
DX: K52.89 Other specified noninfective gastroenteritis and colitis (principal); K59.9 Functional intestinal disorder, unspecified; K59.00 Constipation, unspecified; R78.81 Bacteremia; Z90.710 Acquired absence of both cervix and uterus; Z96.0 Presence of urogenital implants; B37.0 Candidal stomatitis; R64 Cachexia; I48.92 Unspecified atrial flutter; N30.00 Acute cystitis without hematuria; E44.0 Moderate protein-calorie malnutrition; Z16.23 Resistance to quinolones and fluoroquinolones; Z68.1 Body mass index [BMI] 19.9 or less, adult; E87.6 Hypokalemia; K52.9 Noninfective gastroenteritis and colitis, unspecified; K31.9 Disease of stomach and duodenum, unspecified; K44.9 Diaphragmatic hernia without obstruction or gangrene; K21.9 Gastro-esophageal reflux disease without esophagitis; B96.20 Unspecified Escherichia coli [E. coli] as the cause of diseases classified elsewhere; R33.9 Retention of urine, unspecified; R15.9 Full incontinence of feces; R00.0 Tachycardia, unspecified; D50.9 Iron deficiency anemia, unspecified; E87.70 Fluid overload, unspecified; I05.0 Rheumatic mitral stenosis; G25.0 Essential tremor; G89.29 Other chronic pain; G43.909 Migraine, unspecified, not intractable, without status migrainosus; F41.9 Anxiety disorder, unspecified; Z11.59 Encounter for screening for other viral diseases; Z66 Do not resuscitate; Z87.39 Personal history of other diseases of the musculoskeletal system and connective tissue; Z88.0 Allergy status to penicillin
CPT/HCPCS: 36415; 51701; 71045; 74177; 80048; 80053; 81001; 81599; 82378; 82728; 83540; 83605; 83690; 83735; 84100; 84443; 84466; 84484; 85025; 87040; 87077; 87086; 87181; 87640; 93005; 93306; 94640; 94761; 96365; 96366; 96368; 96375; 97116; 97161; 97166; 97530; 99285; A9270; J1170; J1650; J7120; Q9967; U0004; 81003

== ENCOUNTER 2020-04-04 11:38 | Outpatient (CLI) | payer MEDICARE, OTHER ==
[2020-04-04] MEDS ORDERED: IOVERSOL 320 100 ML VIAL IVP ONE ×2 (11:52→19:42)
[2020-04-04] MEDS ORDERED: IOVERSOL 320 50 ML VIAL ONE (11:52)
[2020-04-04 12:20] LABS: CREATININE 0.5 mg/dL (0.4-1.0)
--- NOTE | 2020-04-04 15:42 | CT Report ---
PROCEDURE: Abdomen/Pelvis W INDICATIONS: WEIGHT LOSS, ENLARGED INGUINAL LN CONTRAST: IV CONTRAST: Optiray 320 ml: 80 PO CONTRAST: Optiray 320 ml50 TECHNIQUE: After the administration of contrast, 5 mm thick sections acquired from the diaphragms to the sym physis. 5 mm thick coronal and sagittal reformats were acquired. For radiation dose reduction, the following was used: automated exposure control, adjustment of mA and/or kV according to patient size . COMPARISON: None. FINDINGS: Image quality: Excellent. ABDOMEN: Lung bases: Lung bases are clear except for mild vertically oriented focal linear scarring at the li ngular segment left upper. Heart size is normal. There is a moderate-sized hiatal hernia behind the heart Solid organs: Liver and spleen are normal in size and enhancement. Gallbladder is not seen Biliary system is non dilated. Pancreas enhances normally. No adrenal nodules. Kidneys demonstrate normal size and enhancement, without hydronephrosis. Peritoneum and bowel: Bowel loops demonstrate normal wall thickness and caliber. No free fluid or a ir. There is generalized colonic obstipation. Nodes and vessels: No retroperitoneal or mesenteric adenopathy by size criteria. Aorta and inferior vena cava are normal in size. Miscellaneous: No ventral hernias. PELVIS: Genitourinary: Bladder wall thickness is normal. Miscellaneous: No inguinal hernias or adenopathy. Bones: No suspicious bony lesions. No vertebral body compression fractures. IMPRESSION: Generalized colonic obstipation. No sign of intestinal perforation. A mass lesion is not identified, no adenopathy is seen. Moderate-sized hiatal hernia is noted behind the heart. A source of weight loss is not seen. Currently at the inguinal regions bilaterally no adenopathy is found. Reviewed by: Shaw Joseph MD on 04/04/2020 3:40 PM PST Approved by: Shaw Joseph MD on 04/04/2020 3:40 PM PST Station ID: [id number]
[2020-04-04] MEDS ORDERED: IOVERSOL 320 50 ML VIAL PO ONE (19:42)
== END 2020-04-04 11:39 | disposition home or self-care (01) ==
LOC: DI 11:38
PROVIDERS: ATTEND Surgery
DX: K59.00 Constipation, unspecified (principal); K44.9 Diaphragmatic hernia without obstruction or gangrene
CPT/HCPCS: 36415; 74177; 82565; Q9967

== ENCOUNTER 2020-06-02 14:51 | Outpatient (CLI) | payer MEDICARE, OTHER ==
--- NOTE | 2020-06-02 17:08 | XRAY Report ---
PROCEDURE: Abdomen 1 View X-Ray INDICATIONS: DIARRHEA TECHNIQUE: 1 view of the abdomen were acquired. COMPARISON: CT abdomen pelvis 04/04/2020 FINDINGS: Surgical changes and devices: None. Bowel: No pneumoperitoneum. The bowel gas pattern demonstrated appears to be a prominent loop of antonieta wel in the left upper quadrant. Moderate colonic stool is present. Multiple scattered oval radiodensi ties are present within the pelvis and right colon. Soft tissues: No masses; visualized solid organ contours appear normal in size. No suspicious abdom inal calcifications. Bones: No suspicious bony abnormalities. IMPRESSION: 1. Ill-defined loop of what appears to be prominent bowel in the left upper quadrant. Overall appeara nce could be suggestive of ileus secondary to constipation. 2. Multiple scattered oval radiodensities overlying the abdomen and pelvis as above. This is suspecte d to be related to ingested substances, possibly pills or other etiology. Clinical correlation is rec ommended. Reviewed by: Latonya Fernandez MD on 06/02/2020 5:07 PM [facility] [[email or web address]] Approved by: Latonya Fernandez MD on 06/02/2020 5:07 PM PST Station ID: [id number]
== END 2020-06-02 14:52 | disposition home or self-care (01) ==
LOC: DI.S 14:51
PROVIDERS: ATTEND Family Medicine
DX: R19.7 Diarrhea, unspecified (principal)

== ENCOUNTER 2020-08-09 13:12 | Outpatient (CLI) | payer MEDICARE, OTHER ==
--- NOTE | 2020-08-09 14:30 | CT Report ---
PROCEDURE: HEAD WO INDICATIONS: Headache TECHNIQUE: Noncontrast 4.5 mm thick angled axial sections acquired from the foramen magnum to the vertex. For r adiation dose reduction, the following was used: automated exposure control, adjustment of mA and/or kV according to patient size. COMPARISON: 12/22/2018 FINDINGS: Image quality: Excellent. CSF spaces: Basal cisterns are patent. No extra-axial fluid collections. Ventricles are normal in size and shape. Brain: No midline shift. No intracranial masses or hemorrhage. Hung-white matter interface is norm al. Skull and face: Calvarium and visualized facial bones are intact, without suspicious lesions. Sinuses: Visualized sinuses and mastoids are clear. IMPRESSION: No acute intracranial finding. Global cerebral volume loss and chronic microvascular ischemic change similar to the prior study. Reviewed by: Osei Chaudhary MD on 08/09/2020 2:29 PM PDT Approved by: Osei Chaudhary MD on 08/09/2020 2:29 PM PDT Station ID: [id number]
== END 2020-08-09 13:13 | disposition home or self-care (01) ==
LOC: DI 13:12
PROVIDERS: ATTEND Family Medicine
DX: I67.82 Cerebral ischemia (principal); R51.9 Headache, unspecified

== ENCOUNTER 2020-09-12 12:21 | Outpatient (CLI) | payer MEDICARE, OTHER | END 2020-09-12 12:22 | disposition short-term general hospital (02) | LOC: EMS 12:21 | DX: R11.0 Nausea (principal); R53.1 Weakness; R42 Dizziness and giddiness | CPT/HCPCS: A0425; A0429 ==